=== PATIENT | female | born 1930 | race Caucasian/White ===

== ENCOUNTER 2016-07-07 15:26 | Observation (INO) ==
[2016-07-07] MEDS ORDERED: 0.9 % Sodium Chloride 1,000 ML IVC ONE (15:52)
--- NOTE | 2016-07-07 16:04 | Emergency Department Note ---
Disposition Clinical Impression: Confusion, Weakness generalized Urinary tract infection Qualifiers: Urinary tract infection type: site unspecified Hematuria presence: without hematuria Qualified Code(s): N39.0 - Urinary tract infection, site not specified Disposition: Admitted As Inpatient Condition: Fair Referrals: Jerilyn Carl EDUCATION RESEARCH ANALYST [Primary Care Provider] - Forms: ED Satisfaction Letter Time of Disposition: 17:51 Weakness HPI - General Chief complaint: ED Weakness Stated complaint: Severe dehydration, sent by Dr. Zuleta Time Seen by Provider: 07/07/16 15:38 Source: patient, family Mode of arrival: private vehicle Limitations: other (Alzheimer's) Nursing Notes Reviewed: Yes Vital Signs Reviewed: Yes - History of Present Illness Pt Subjective Complaint: generalized weakness/fatigue Onset (ago): day(s) (About 4 days) Duration: constant Location: generalized Pain Severity: moderate Pain Scale: 5 Worsens with: exertion Context: other (Patient has had several days of increased confusion and general weakness. Having difficulty ambulating at home. Was seen by PCP yesterday and had a urinalysis done in the office which they interpreted as urinary tract infection. The patient and I am injection of Rocephin and she was discharged to home. Today she is worse despite that treatment and so she was sent here by the PCP for further evaluation and probable admission.) Associated symptoms: Reports: confusion, other (Diarrhea) - Related Data Home Medications Medication Instructions Recorded Confirmed Atorvastatin [Lipitor] 80 mg PO QAM 05/06/15 07/07/16 Donepezil [Aricept] 10 mg PO HS 05/06/15 07/07/16 Levothyroxine [Synthroid] 50 mcg PO QAM 05/06/15 07/07/16 Sulfamethoxazole/Trimeth DS 1 tab PO HS 02/29/16 07/07/16 [Bactrim Ds] Trospium Chloride 20 mg PO BID 02/29/16 07/07/16 Vamshi/Poly/DEX Opth OINT [Maxitrol 1 appl OP HS 07/07/16 07/07/16 OPTH Oint] PrednisoLONE Acetate 1% Opth 1 drop OP TID 07/07/16 07/07/16 [PredFORTE 1%] Previous Rx's Medication Instructions Recorded Mirtazapine [Remeron] 15 mg PO HS #30 tablet 03/03/16 Allergies Allergy/AdvReac Type Severity Reaction Status Date / Time Pneumococcal Vaccine Allergy Hives Verified 05/09/15 14:21 All systems ED: reviewed and negative except as stated. Constitutional: Denies: fever, chills ENT ED: Denies: congestion Cardiovascular: Denies: dyspnea on exertion Respiratory: Denies: cough Gastrointestinal: Reports: diarrhea. Denies: nausea, vomiting Integumentary: Denies: rash Neurological: Reports: weakness (Generalized) Past Medical History - Past Medical History Source: old records reviewed, obtained from family, nursing notes reviewed Medical history: Reports: arthritis, dementia, hyperlipidemia, hypertension, osteoporosis, renal disease, thyroid disease, other Surgical history: Reports: carotid endarterectomy Psychiatric history: Reports: no psych history [employer] history: Reports: non-contributory - Social History Smoking Status: Former smoker Smokeless Tobacco Status: No Alcohol use: Reports: none Drug use: Reports: none Physical Exam - General Limitations: no limitations General appearance: alert, in no apparent distress, other (Gives answers that do not seem to make sense. Consistent with her dementia.) - Head Head exam: atraumatic, normocephalic - Eye Eye exam: Present: normal appearance, PERRL. Absent: scleral icterus, conjunctival injection - ENT ENT exam: normal exam, normal oropharynx, mucous membranes moist, normal external ear exam - Neck Neck exam: Present: normal inspection, full ROM. Absent: meningismus - Chest Chest inspection: Present: normal inspection, symmetric chest wall rise. Absent : tenderness - Respiratory Respiratory exam: Present: normal lung sounds bilaterally. Absent: respiratory distress, wheezes - Cardiovascular Cardiovascular exam: Present: regular rate, normal rhythm, normal heart sounds - Abdominal Exam Abdominal exam: Present: soft, Non-Tender - Extremities Exam Extremities exam: Present: normal inspection. Absent: pedal edema - Neurological Exam Neurological exam: Present: alert - Psychiatric Psychiatric exam: Present: flat affect - Skin Skin exam: Present: warm, dry. Absent: rash Course Course Narrative: Patient was sent in for PCP office as she is not getting better after initiating treatment for UTI, in fact she seems to be getting worse. I cannot find the urinalysis results in the computer. We will need to recheck the urine to verify that this is indeed a UTI. We did consider other causes of altered mental status and weakness in a 85-year-old dementia patient. We will do a full lab workup and start some IV fluids. Disposition will be based on diagnostic results and reevaluation, however I feel the patient is likely going to need to be admitted to the hospital due to significant weakness impacting her ADLs. - Reevaluation(s) Reevaluation #1: Labs look okay. Urinalysis is not showing significant amount of free white cells or bacteria in the urine but there are white blood cell casts. Cardiac workup is negative. Chest x-ray was not indicative of an obvious cause. I am going to admit the patient. I will continue her on antibiotics. I am awaiting a callback from the hospitalist. Time: 17:39 - Consultations Consultation #1: Dr. Caldwell, hospitalist - I discussed this with the hospitalist. She is accepted patient for admission. No changes in management at this time. Time: 17:50 Vital Signs Temperature 97.5 F L 07/07/16 15:33 Pulse Rate 94 07/07/16 15:33 Respiratory Rate 16 07/07/16 15:33 Blood Pressure 122/60 07/07/16 15:33 O2 Sat by Pulse Oximetry 94 L 07/07/16 15:33 Temperature 97.5 F L 07/07/16 15:33 Pulse Rate 86 07/07/16 16:22 Respiratory Rate 18 07/07/16 16:22 Blood Pressure 140/70 07/07/16 16:22 O2 Sat by Pulse Oximetry 94 L 07/07/16 16:22 Oxygen Delivery Oxygen Delivery Room Air Weakness - Medical Records Medical records reviewed: Yes I reviewed the patient's medical records. - Lab Data Lab results reviewed: Yes I reviewed the patient's lab results. Result diagrams: 07/07/16 16:10 07/07/16 16:10 Lab Results 07/07/16 07/07/16 07/07/16 Range/Units 16:10 16:10 16:10 WBC 11.4 H (4.3-11.1) K/mcL RBC 3.99 (3.82-4.97) M/mcL Hgb 11.5 (11.5-15.4) g/dL Hct 35.4 (35.3-44.9) % MCV 88.7 (83.0-100.0) fL MCH 28.8 (28.0-33.3) pg MCHC 32.5 (31.6-35.5) g/dL RDW 14.8 H (11.5-14.5) % Plt Count 265 (140-400) K/mcL MPV 9.8 (9.4-12.4) fL Immature Gran % 0.6 (0-4) % Seg Neutrophils % 84.9 % Lymphocytes % 6.2 % Monocytes % 3.0 % Eosinophils % 5.0 % Basophils % 0.3 % Neutrophils # 9.7 H (1.6-8.9) K/mcL Lymphocytes # 0.7 (0.6-4.6) K/mcL Monocytes # 0.3 (0.0-1.3) K/mcL Eosinophils # 0.6 (0.0-0.6) K/mcL Basophils # 0.0 (0.0-0.2) K/mcL Sodium 139 (136-145) mEq/L Potassium 3.7 (3.5-4.5) mEq/L Chloride 109 (98-109) mEq/L Carbon Dioxide 20 (19-29) mEq/L BUN 31 H (7-20) mg/dL Creatinine 1.25 H (0.57-1.11) mg/dL Est GFR ( Amer) 50 L (> 60) Est GFR (Non-Af Amer) 41 L (> 60) BUN/Creatinine Ratio 25 (6-26) Glucose 111 H (70-99) mg/dL Calculated Osmolality 295 (280-300) Lactic Acid 2.2 (0.5-2.2) mmol/L Calcium 9.2 (8.6-10.8) mg/dL Troponin I (0-0.03) ng/mL Urine Color (Yellow) Urine Clarity (Clear) Urine pH (5.0-8.0) pH Units Ur Specific [place] (1.010-1.025) Urine Protein (Neg-Trace) mg/dL Urine Glucose (UA) (Normal) mg/dL Urine Ketones (Negative) mg/dL Urine Blood (Negative) Urine Nitrite (Negative) Urine Bilirubin (Negative) Urine Urobilinogen (Normal) mg/dL Ur Leukocyte Esterase (Negative) Urine Microscopic RBC (0-3) per hpf Urine Microscopic WBC (0-3) per hpf Ur Squamous Epith Cells (None-Few) per lpf Amorphous Sediment (Few) Urine Bacteria (None-Few) per hpf Hyaline Casts (None-Few) per lpf Granular Casts (None Seen) per lpf WBC Casts (None Seen) per lpf Ur Culture Indicated? (NO) 07/07/16 07/07/16 Range/Units 16:10 16:26 WBC (4.3-11.1) K/mcL RBC (3.82-4.97) M/mcL Hgb (11.5-15.4) g/dL Hct (35.3-44.9) % MCV (83.0-100.0) fL MCH (28.0-33.3) pg MCHC (31.6-35.5) g/dL RDW (11.5-14.5) % Plt Count (140-400) K/mcL MPV (9.4-12.4) fL Immature Gran % (0-4) % Seg Neutrophils % % Lymphocytes % % Monocytes % % Eosinophils % % Basophils % % Neutrophils # (1.6-8.9) K/mcL Lymphocytes # (0.6-4.6) K/mcL Monocytes # (0.0-1.3) K/mcL Eosinophils # (0.0-0.6) K/mcL Basophils # (0.0-0.2) K/mcL Sodium (136-145) mEq/L Potassium (3.5-4.5) mEq/L Chloride (98-109) mEq/L Carbon Dioxide (19-29) mEq/L BUN (7-20) mg/dL Creatinine (0.57-1.11) mg/dL Est GFR ( Amer) (> 60) Est GFR (Non-Af Amer) (> 60) BUN/Creatinine Ratio (6-26) Glucose (70-99) mg/dL Calculated Osmolality (280-300) Lactic Acid (0.5-2.2) mmol/L Calcium (8.6-10.8) mg/dL Troponin I 0.02 (0-0.03) ng/mL Urine Color Dark Yellow (Yellow) Urine Clarity Cloudy A (Clear) Urine pH 5.5 (5.0-8.0) pH Units Ur Specific [place] 1.025 (1.010-1.025) Urine Protein 30 H (Neg-Trace) mg/dL Urine Glucose (UA) Normal (Normal) mg/dL Urine Ketones Negative (Negative) mg/dL Urine Blood Negative (Negative) Urine Nitrite Negative (Negative) Urine Bilirubin Small H (Negative) Urine Urobilinogen Normal (Normal) mg/dL Ur Leukocyte Esterase Negative (Negative) Urine Microscopic RBC 3-5 H (0-3) per hpf Urine Microscopic WBC 3-5 H (0-3) per hpf Ur Squamous Epith Cells Many H (None-Few) per lpf Amorphous Sediment Few (Few) Urine Bacteria Few (None-Few) per hpf Hyaline Casts Few (None-Few) per lpf Granular Casts Moderate H (None Seen) per lpf WBC Casts Few H (None Seen) per lpf Ur Culture Indicated? NO (NO) - Radiology Data Radiology results reviewed: Yes I reviewed the patient's radiology results. - EKG Data EKG attestation: Yes I reviewed and interpreted this EKG. EKG shows normal: sinus rhythm, axis, intervals, QRS complexes, ST-T waves Rate: normal Interpretation: no acute changes, unchanged when compared to prior tracing (date ) (02/29/2016)
[2016-07-07 16:18] LABS: Basophils % 0.3 %; Eosinophils # 0.6 K/mcL (0.0-0.6); Hematocrit 35.4 % (35.3-44.9); Hemoglobin 11.5 g/dL (11.5-15.4); Immature Granulocytes % 0.6 % (0-4); Lymphocytes # 0.7 K/mcL (0.6-4.6); Lymphocytes % 6.2 %; Mean Corpuscular HGB Conc 32.5 g/dL (31.6-35.5); Mean Corpuscular Hemoglobin 28.8 pg (28.0-33.3); Mean Corpuscular Volume 88.7 fL (83.0-100.0); Mean Platelet Volume 9.8 fL (9.4-12.4); Monocytes # 0.3 K/mcL (0.0-1.3); Neutrophils # 9.7 K/mcL (1.6-8.9); Platelet Count 265 K/mcL (140-400); Red Blood Count 3.99 M/mcL (3.82-4.97); Red Cell Distribution Width 14.8 % (11.5-14.5); Segmented Neutrophils % 84.9 %
[2016-07-07 16:30] LABS: Calcium 9.2 mg/dL (8.6-10.8); Potassium 3.7 mEq/L (3.5-4.5)
[2016-07-07 16:35] LABS: Bilirubin,Urine Small (Negative); Blood,Urine Negative (Negative); Clarity,Urine Cloudy (Clear); Color,Urine Dark Yellow (Yellow); Glucose,Urine (UA) Normal (Normal); Ketones,Urine Negative (Negative); Leukocyte Esterase,Urine Negative (Negative); Nitrite,Urine Negative (Negative); PH,Urine 5.5 pH Units (5.0-8.0); Protein,Urine 30 mg/dL (Neg-Trace); Specific Gravity,Urine 1.025 (1.010-1.025); Urobilinogen,Urine Normal (Normal)
[2016-07-07 16:38] LABS: Squamous Epithelial Cell,Urine Many per lpf (None-Few)
[2016-07-07 16:45] LABS: Granular Casts,Urine Moderate per lpf (None Seen)
[2016-07-07 16:47] LABS: Hyaline Casts,Urine Few per lpf (None-Few); White Blood Cell Casts,Urine Few per lpf (None Seen)
[2016-07-07 16:48] LABS: Amorphous Sediment,Urine Few (Few); Bacteria,Urine Few per hpf (None-Few)
[2016-07-07] MEDS ORDERED: Naloxone 0.4 MG/ML INJ IVP PRN (19:59)
[2016-07-07] MEDS ORDERED: Acetaminophen 325 MG TABLET PO PRN (19:59)
[2016-07-07] MEDS ORDERED: 0.9 % Sodium Chloride 1,000 ML IVC SCH (20:00)
--- NOTE | 2016-07-07 20:15 | Internal Med History&Physical ---
Date of Encounter: 07/07/16 Time of Encounter: 19:40 Assessment and Plan (1) Urinary tract infection Current visit: Yes Status: Acute 1. S/P failed outpatient treatment. 2. Pt received Rocephin in ER before urine culture obtained. Will culture urine now, but results will likely be negative given antibiotic use prior to collecting urine for culture. 3. Follow clinically and culture results (if available and pertinent). 4. Continue Rocephin for now and adjust antibiotics to clinical results and culture results (if available). Qualifiers: Urinary tract infection type: site unspecified Hematuria presence: without hematuria Qualified Code(s): N39.0 - Urinary tract infection, site not specified (2) Acute encephalopathy Current visit: Yes Status: Acute 1. Pt much worse than baseline according to daughters. She does have a history of dementia, but she is functioning fairly well per family. 2. Continue dementia meds. Hold other mind-altering medications. 3. Treat UTI and monitor clinically. (3) Weakness generalized Current visit: Yes Status: Acute 1. Likely due to UTI. 2. Monitor and reassess. May benefit from PT/OT consults if not returning to baseline. (4) Acute kidney injury superimposed on chronic kidney disease Current visit: No Status: Acute 1. Will hydrate gingerly with IVF and follow renal function. 2. Consult nephrology if necessary. (5) DVT prophylaxis Current visit: Yes Status: Acute 1. Heparin SQ. Internal Medicine - H&P: HPI Chief complaint: UTI; AMS; wekaness Admitted From: Emergency Dept Plans for Post Hospital Care: Home History of present illness: Ms. Monteiro is an 85 year old female who [facility] with worsening confusion, weakness, and altered mental status. She was diagnosed with UTI by her PCP yesterday and received a shot of Rocephin in the office. She was then placed on Bactrim, but despite the above, her clinical course declined rapidly since yesterday. She was therefore brought to the ER by her family for the above symptoms. Labs and urinalysis were drawn, but her urine did not strongly suggest UTI. However, this was drawn in the face of antibiotics. Unfortunately, we are unable to review urinalysis and culture results obtained by her PCP yesterday. Because of her worsening mental status and presumptive UTI, she was admitted to the hospitalist service. Upon my assessment of the patient, she is very confused, disoriented, and is unable to provide any history whatsoever. Two of her daughters are present and provide all the history. They confirm that she has a history of dementia, but she is not at her baseline. Normally, she is fairly well-functioning and fairly coherent. Presently, she is completely confused and disoriented and does not even recognize her daughters. 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 She no longer lives alone and no longer drives a car. She lives at home with her son, and she has home health providers as well. The hope and plan is for her to return home once her UTI resolves and her encephalopathy improves to baseline. Past Med Surg Social Fam HX - Past Medical History Source: old records reviewed, obtained from family Medical history: arthritis, dementia, hyperlipidemia, hypertension, osteoporosis , renal disease, thyroid disease Psychiatric history: no psych history - Past Surgical History Surgical History: carotid endarterectomy - Social History Smoking Status: Former smoker Smokeless Tobacco Status: No Alcohol use: none Drug use: none Current living situation: With Family Activity Level: Mostly sedentary Recent Out of Country Travel Within the Last 8 Weeks: No - Family History Mother Living Status: Hx Family Cardiac Disorders: Yes Brother Hx Family Cardiac Disorders: Yes (HTN) Hx Family Endocrine Disorder: Yes (DM) Internal Medicine - H&P: Meds Atorvastatin [Lipitor] 80 mg PO QAM 05/06/15 [History] Donepezil [Aricept] 10 mg PO HS 05/06/15 [History] Levothyroxine [Synthroid] 50 mcg PO QAM 05/06/15 [History] Sulfamethoxazole/Trimeth DS [Bactrim Ds] 1 tab PO HS 02/29/16 [History] Trospium Chloride 20 mg PO BID 02/29/16 [History] Mirtazapine [Remeron] 15 mg PO HS #30 tablet 03/03/16 [Rx] Vamshi/Poly/DEX Opth OINT [Maxitrol OPTH Oint] 1 appl OP HS 07/07/16 [History] PrednisoLONE Acetate 1% Opth [PredFORTE 1%] 1 drop OP TID 07/07/16 [History] Allergies Pneumococcal Vaccine Allergy (Verified 05/09/15 14:21) Hives ROS unobtainable: due to mental status Review of systems: As obtained by daughters below. All else unobtainable due to mental status. + confusion, weakness, chills, diarrhea. - fevers, nausea, vomiting, cough, SOB, CP - Constitutional Vitals: Temp Pulse Resp BP Pulse Ox 97.5 F L 79 22 152/67 96 07/07/16 15:33 07/07/16 18:13 07/07/16 18:19 07/07/16 18:19 07/07/16 18:13 General appearance: Present: A&O X 0, cooperative, pleasant. Absent: answers questions appropriately Exam: pleasantly confused; cooperative - Head Head exam: Present: atraumatic, normal inspection - Expanded Head Exam Head exam expanded: Absent: abrasion, contusion, general tenderness - Eye Eye exam: Present: EOMI, normal appearance. Absent: scleral icterus Pupils: Present: normal accommodation - ENT ENT exam: Present: mucous membranes dry, normal exam, normal oropharynx - Neck Neck exam general surgery: Present: full ROM, normal inspection, supple. Absent : lymphadenopathy, tenderness, thyromegaly - Expanded Neck Exam Neck exam: Absent: carotid bruit - Respiratory Respiratory exam: Present: CTAB. Absent: chest wall tenderness, rales, respiratory distress, rhonchi, wheezes - Cardiovascular Cardiovascular exam: Present: RRR, +S1, +S2. Absent: diastolic murmur, JVD, systolic murmur - GI/Abdominal GI/Abdominal exam: Present: normal bowel sounds, soft. Absent: guarding, hepatomegaly, rebound, splenomegaly, tenderness - Extremities Exam Extremities exam: Present: full ROM, warm. Absent: calf tenderness, joint swelling, pedal edema - Back Exam Back exam: Absent: CVA tenderness (L), CVA tenderness (R), tenderness - Neurological Exam Neurological exam: Present: alert, altered, CN II-XII intact, no focal deficits. Absent: oriented X3 - Psychiatric Psychiatric exam: Present: normal affect, normal mood Additional comments: confused and disoriented but pleasant and cooperative - Skin Skin exam: Present: dry, warm. Absent: rash Internal Med - H&P Results - Labs CBC & Chem 7: 07/07/16 16:10 07/07/16 16:10 - EKG Data -: EKG Interpreted by Myself - EKG Data Prior EKG available for review: yes When compared to previous EKG: there is no significant change EKG comments: 07/07/16 20:[address]-T changes; sinus rhythm - Diagnostic Studies Chest x-ray Status: image reviewed by me (No infiltrate; tiny right pleural effusion -- report reviewed as well)
[2016-07-07] MEDS: *HR* Heparin 5,000 UNIT/ML VIAL SQ SCH (21:28)
[2016-07-07] MEDS: Mirtazapine 15 MG TABLET PO SCH (21:29)
[2016-07-07] MEDS: Maxitrol Opth OINT 3.5 GM TUBE OP SCH (21:44)
[2016-07-07] MEDS: PrednisoLONE Acetate 1% Opth 5 ML BOTTLE BOTH EYES SCH (21:44)
[2016-07-08] MEDS: *HR* Heparin 5,000 UNIT/ML VIAL SQ SCH ×2 (05:43→17:48)
[2016-07-08 06:51] LABS: Basophils % 0.1 %; Eosinophils # 0.6 K/mcL (0.0-0.6); Eosinophils % 7.6 %; Hematocrit 29.3 % (35.3-44.9); Immature Granulocytes % 0.5 % (0-4); Lymphocytes # 1.1 K/mcL (0.6-4.6); Mean Corpuscular HGB Conc 32.1 g/dL (31.6-35.5); Mean Corpuscular Hemoglobin 28.7 pg (28.0-33.3); Mean Corpuscular Volume 89.3 fL (83.0-100.0); Mean Platelet Volume 10.4 fL (9.4-12.4); Monocytes # 0.4 K/mcL (0.0-1.3); Monocytes % 5.5 %; Neutrophils # 5.4 K/mcL (1.6-8.9); Platelet Count 226 K/mcL (140-400); Red Blood Count 3.28 M/mcL (3.82-4.97); Red Cell Distribution Width 14.6 % (11.5-14.5); Segmented Neutrophils % 72.3 %
[2016-07-08 06:55] LABS: Hemoglobin 9.4 g/dL (11.5-15.4)
[2016-07-08 07:07] LABS: Alanine Aminotransferase 25 Units/L (0-55); Albumin 2.3 g/dL (3.5-5.0); Albumin/Globulin Ratio 0.7 (1.1-2.2); Alkaline Phosphatase 63 Units/L (38-126); Aspartate Amino Transferase 25 Units/L (5-34); BUN/Creatinine Ratio 30 (6-26); Bilirubin,Total 0.5 mg/dL (0.2-1.2); Blood Urea Nitrogen 26 mg/dL (7-20); Carbon Dioxide 22 mEq/L (19-29); Chloride 110 mEq/L (98-109); Globulin 3.4 g/dL (2.4-3.5); Glucose 97 mg/dL (70-99); Osmolality,Calculated 293 (280-300); Potassium 3.3 mEq/L (3.5-4.5); Sodium 139 mEq/L (136-145); Total Protein 5.7 g/dL (6.0-8.3); eGFR For African Americans > 60 (> 60); eGFR For Non-African Americans > 60 (> 60)
[2016-07-08] MEDS: Levothyroxine 25 MCG TABLET PO SCH (08:36)
[2016-07-08] MEDS: PrednisoLONE Acetate 1% Opth 5 ML BOTTLE BOTH EYES SCH ×3 (08:37→20:32)
--- NOTE | 2016-07-08 09:04 | Electrocardiograph Report ---
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
--- NOTE | 2016-07-08 14:13 | Internal Med Progress Note ---
<Luisito Florez - Last Filed: 07/08/16 14:11> Date of Encounter: 07/08/16 Time of Encounter: 08:00 - Assessment and plan (1) Acute encephalopathy Current Visit: Yes Status: Acute Assessment and plan: Acute encephalopathy superimposed on dementia. Patient's family member discussed that her mother has had worsening of mental status over the past few days. Suspect secondary to gram-negative mary ellen urinary tract infection. Patient started on ceftriaxone antibiotic coverage. TSH level pending. Original lactic acid 2.2. Plan: - Continue treating underlying medical derailment. - Monitor mental status. - If mental status does not continue to improve will order B12, folate, thiamine - Blood cultures drawn results pending. (2) Dementia Current Visit: No Status: Acute Assessment and plan: Patient has a history of dementia for which she is on Aricept. Plan: - Continue Aricept 10 mg by mouth at bedtime. - Remeron 15 mg daily at bedtime Qualifiers: Dementia type: Alzheimer's disease Alzheimer's disease onset: late-onset Dementia behavioral disturbance: without behavioral disturbance Qualified Code (s): G30.1 - Alzheimer's disease with late onset; F02.80 - Dementia in other diseases classified elsewhere without behavioral disturbance (3) Urinary tract infection Current Visit: Yes Status: Acute Assessment and plan: Patient demonstrates urinary tract infection with culture growing gram-negative rods. Previous history of urinary tract infections but grew TMP-SMX resistant Klebsiella and Escherichia coli pansensitive. She had failed outpatient therapy with TMP-SMX for urinary tract infection prior to admission. Plan: - Continue ceftriaxone IV. Qualifiers: Urinary tract infection type: site unspecified Hematuria presence: without hematuria Qualified Code(s): N39.0 - Urinary tract infection, site not specified (4) Acute kidney injury superimposed on chronic kidney disease Current Visit: No Status: Acute Assessment and plan: Patient demonstrated acute kidney injury in the setting of gram-negative mary ellen UTI. She was started on IV fluids at maintenance dose of 75 overnight with resolution of her acute kidney injury. IV fluids were discontinued this morning. Plan: - Discontinue normal saline IV. - Monitor renal function with a.m. labs. (5) Hypokalemia Current Visit: Yes Status: Acute Assessment and plan: Patient's potassium was 3.3 this morning. Plan: - 40meq PO potassium. - follow up level in am. (6) Hypothyroidism Current Visit: No Status: Chronic Assessment and plan: Patient has a history of hypothyroidism for which he takes 50mcg levothyroxine daily. Possibility of contributing to altered mental status with current TSH level pending. Plan: - Continue current dose of levothyroxine, will adjust if TSH level abnormal. Qualifiers: Hypothyroidism type: other Qualified Code(s): E03.8 - Other specified hypothyroidism (7) DVT prophylaxis Current Visit: Yes Status: Acute Assessment and plan: Heparin subcutaneously. - Subjective Interval history: Mrs. Monteiro 85-year-old female with known history of dementia, hypertension, hyperlipidemia, osteoporosis, hypothyroidism and coronary artery disease has been seen and evaluated patient bedside this morning. She is sitting up in her chair watching TV. She said she does not feel the best today. She is alert and oriented to self only she notes she is in a hospital but does not know where she is, she does not know the month, the year or why she is here. She complains of weakness in her lower extremities as her chief complaint. She denies any visual changes, lightheadedness, dizziness, chest pain, shortness of breath, palpitations, abdominal pains, nausea vomiting diarrhea constipation or trouble urinating or burning with urination. She denies any bleeding from any location. She is responsive to questions but clearly demonstrates a lack of awareness. - Constitutional Vitals: Temp Pulse Resp BP Pulse Ox 98.4 F 71 16 116/71 95 07/08/16 10:50 07/08/16 10:50 07/08/16 10:50 07/08/16 10:50 07/08/16 10:50 General appearance: Present: cooperative, A&O X 1, pleasant. Absent: answers questions appropriately - Head Head exam: Present: atraumatic, normocephalic - Eye Eye exam: Present: PERRL, conjuntiva pink, sclera anicteric Pupils: Present: PERRL - Neck Neck exam general surgery: Present: supple, trachea midline. Absent: lymphadenopathy - Respiratory Respiratory exam: Present: CTAB. Absent: accessory muscle use, rales, rhonchi, wheezes - Cardiovascular Cardiovascular exam: Present: RRR, +S1, +S2. Absent: diastolic murmur, gallop, rubs, systolic murmur - GI/Abdominal GI/Abdominal exam: Present: normal bowel sounds, soft, no peritoneal signs. Absent: distended, tenderness - Extremities Exam Extremities exam: Present: warm, radial pulses palpable and symetrical. Absent : calf tenderness, cyanotic, pedal edema - Neurological Exam Neurological exam: Present: alert, no focal deficits. Absent: facial droop, speech deficit - Psychiatric Psychiatric exam: Present: flat affect Internal Medicine: Result - Labs CBC & Chem 7: 07/08/16 05:59 07/08/16 05:59 Labs: Short CBC 07/08/16 Range/Units 05:59 WBC 7.5 (4.3-11.1) K/mcL Hgb 9.4 L D (11.5-15.4) g/dL Hct 29.3 L (35.3-44.9) % Plt Count 226 (140-400) K/mcL Neutrophils # 5.4 (1.6-8.9) K/mcL BMP 07/08/16 05:59 Sodium 139 Potassium 3.3 L Chloride 110 H Carbon Dioxide 22 BUN 26 H Creatinine 0.87 Glucose 97 Calcium 8.0 L Liver Function 07/08/16 Range/Units 05:59 Total Bilirubin 0.5 (0.2-1.2) mg/dL AST 25 (5-34) Units/L ALT 25 (0-55) Units/L Alkaline Phosphatase 63 (38-126) Units/L Albumin 2.3 L (3.5-5.0) g/dL Consult Discharge Plan - Plan Referrals: Jerilyn Carl, [employer] [Primary Care Provider] - 07/15/16 3:00 pm () <Carlos Manuel Mora - Last Filed: 07/08/16 15:43> - Assessment and plan (1) Acute metabolic encephalopathy Current Visit: Yes Status: Acute Assessment and plan: Related to UTI. (2) Delirium superimposed on dementia Current Visit: Yes Status: Acute Assessment and plan: Dementia worsened by infection. (3) UTI (urinary tract infection) Current Visit: Yes Status: Acute Qualifiers: Urinary tract infection type: acute cystitis Hematuria presence: without hematuria Qualified Code(s): N30.00 - Acute cystitis without hematuria (4) Infection due to Gram-negative bacteria Current Visit: Yes Status: Acute Assessment and plan: Gram negative bacillus in urine. (5) Hypertension Current Visit: No Status: Chronic Qualifiers: Hypertension type: essential hypertension Qualified Code(s): I10 - Essential (primary) hypertension (6) Hypokalemia Current Visit: Yes Status: Acute (7) Dementia Current Visit: No Status: Acute Qualifiers: Dementia type: Alzheimer's disease Alzheimer's disease onset: late-onset Dementia behavioral disturbance: without behavioral disturbance Qualified Code (s): G30.1 - Alzheimer's disease with late onset; F02.80 - Dementia in other diseases classified elsewhere without behavioral disturbance - Constitutional Vitals: Temp Pulse Resp BP Pulse Ox 98.4 F 71 16 116/71 95 07/08/16 10:50 07/08/16 10:50 07/08/16 10:50 07/08/16 10:50 07/08/16 10:50 Internal Medicine: Result - Labs CBC & Chem 7: 07/08/16 05:59 07/08/16 05:59 Labs: Short CBC 07/08/16 Range/Units 05:59 WBC 7.5 (4.3-11.1) K/mcL Hgb 9.4 L D (11.5-15.4) g/dL Hct 29.3 L (35.3-44.9) % Plt Count 226 (140-400) K/mcL Neutrophils # 5.4 (1.6-8.9) K/mcL BMP 07/08/16 05:59 Sodium 139 Potassium 3.3 L Chloride 110 H Carbon Dioxide 22 BUN 26 H Creatinine 0.87 Glucose 97 Calcium 8.0 L Liver Function 07/08/16 Range/Units 05:59 Total Bilirubin 0.5 (0.2-1.2) mg/dL AST 25 (5-34) Units/L ALT 25 (0-55) Units/L Alkaline Phosphatase 63 (38-126) Units/L Albumin 2.3 L (3.5-5.0) g/dL - Attending Attestation I examined this patient and my medical decision-making was reviewed with the Resident Physician on 07/08/16. I agree with the documented findings, disposition and treatment plan as described except to the extent set forth below. Ms. Monteiro is currently in observation for acute encephalopathy and UTI. She is moderate to high risk due to potential for worsening mental status and infection. Ms. Monteiro is resting comfortably. She just got back in bed from chair. She denies pain at this time but doesn't answer a lot of my questions. Exam Alert. Appears comfortable at this time. No wheeze Heart reg and not tachy No edema I/P 1. Acute encephalopathy 2. UTI - gram neg mary ellen. ID and sensitivity pending. 3. Dementia Further diagnoses and plan as above.
[2016-07-08 15:20] LABS: Thyroid Stimulating Hormone 1.416 mcIU/mL (0.350-4.840)
[2016-07-08] MEDS: Mirtazapine 15 MG TABLET PO SCH (20:32)
[2016-07-08] MEDS: Maxitrol Opth OINT 3.5 GM TUBE OP SCH (20:33)
[2016-07-09] MEDS: *HR* Heparin 5,000 UNIT/ML VIAL SQ SCH ×2 (05:19→17:45)
[2016-07-09 07:01] LABS: Basophils % 0.1 %; Eosinophils # 0.5 K/mcL (0.0-0.6); Eosinophils % 7.5 %; Hemoglobin 9.6 g/dL (11.5-15.4); Immature Granulocytes % 0.4 % (0-4); Lymphocytes # 1.6 K/mcL (0.6-4.6); Lymphocytes % 22.8 %; Mean Corpuscular HGB Conc 33.1 g/dL (31.6-35.5); Mean Corpuscular Hemoglobin 29.2 pg (28.0-33.3); Mean Corpuscular Volume 88.1 fL (83.0-100.0); Mean Platelet Volume 10.2 fL (9.4-12.4); Monocytes # 0.6 K/mcL (0.0-1.3); Monocytes % 8.1 %; Neutrophils # 4.3 K/mcL (1.6-8.9); Platelet Count 262 K/mcL (140-400); Red Blood Count 3.29 M/mcL (3.82-4.97); Red Cell Distribution Width 14.5 % (11.5-14.5); Segmented Neutrophils % 61.1 %
[2016-07-09 07:14] LABS: Alanine Aminotransferase 27 Units/L (0-55); Albumin 2.4 g/dL (3.5-5.0); Albumin/Globulin Ratio 0.7 (1.1-2.2); Alkaline Phosphatase 63 Units/L (38-126); Aspartate Amino Transferase 29 Units/L (5-34); BUN/Creatinine Ratio 21 (6-26); Bilirubin,Total 0.4 mg/dL (0.2-1.2); Blood Urea Nitrogen 19 mg/dL (7-20); Calcium 8.4 mg/dL (8.6-10.8); Carbon Dioxide 25 mEq/L (19-29); Chloride 108 mEq/L (98-109); Globulin 3.3 g/dL (2.4-3.5); Glucose 88 mg/dL (70-99); Osmolality,Calculated 288 (280-300); Potassium 3.8 mEq/L (3.5-4.5); Sodium 138 mEq/L (136-145); Total Protein 5.7 g/dL (6.0-8.3); eGFR For African Americans > 60 (> 60); eGFR For Non-African Americans 60 (> 60)
[2016-07-09] MEDS: PrednisoLONE Acetate 1% Opth 5 ML BOTTLE BOTH EYES SCH ×3 (08:00→20:28)
[2016-07-09] MEDS: Levothyroxine 25 MCG TABLET PO SCH (08:00)
[2016-07-09] MEDS ORDERED: Dextrose Gel 15 GM PO PRN ×2 (10:51)
[2016-07-09] MEDS ORDERED: *HR* Dextrose 50 % in Water (Syg) 50 ML SYRINGE IVP PRN (10:51)
[2016-07-09] MEDS ORDERED: D5% in Water 1,000 ML IV PRN (10:51)
--- NOTE | 2016-07-09 15:32 | Internal Med Progress Note ---
<Luisito Florez - Last Filed: 07/09/16 15:30> Date of Encounter: 07/09/16 Time of Encounter: 08:00 - Assessment and plan (1) Acute encephalopathy Current Visit: Yes Status: Acute Assessment and plan: Acute encephalopathy superimposed on dementia. Patient's family member discussed that her mother has had worsening of mental status over the past few days. Suspect secondary to gram-negative mary ellen urinary tract infection. Patient started on ceftriaxone antibiotic coverage. TSH level pending. Original lactic acid 2.2. 07/09: Patient continues to have altered mental status, continue treating UTI. Plan: - Continue treating underlying medical derailment. - Monitor mental status. - If mental status does not continue to improve will order B12, folate, thiamine - Blood cultures drawn results pending. (2) Urinary tract infection Current Visit: Yes Status: Acute Assessment and plan: Patient demonstrates urinary tract infection with culture growing gram-negative rods. Previous history of urinary tract infections but grew TMP-SMX resistant Klebsiella and Escherichia coli pansensitive. She had failed outpatient therapy with TMP-SMX for urinary tract infection prior to admission. 07/09: Urine culture grew Citrobacter which is sensitive to ceftriaxone, ciprofloxacin, levofloxacin but is resistant to Bactrim. Plan: - Discontinue ceftriaxone IV, Start Omnicef. Qualifiers: Urinary tract infection type: site unspecified Hematuria presence: without hematuria Qualified Code(s): N39.0 - Urinary tract infection, site not specified (3) Dementia Current Visit: No Status: Acute Assessment and plan: Patient has a history of dementia for which she is on Aricept. Plan: - Continue Aricept 10 mg by mouth at bedtime. - Remeron 15 mg daily at bedtime Qualifiers: Dementia type: Alzheimer's disease Alzheimer's disease onset: late-onset Dementia behavioral disturbance: without behavioral disturbance Qualified Code (s): G30.1 - Alzheimer's disease with late onset; F02.80 - Dementia in other diseases classified elsewhere without behavioral disturbance (4) Acute kidney injury superimposed on chronic kidney disease Current Visit: No Status: Acute Assessment and plan: Patient demonstrated acute kidney injury in the setting of gram-negative mary ellen UTI. She was started on IV fluids at maintenance dose of 75 overnight with resolution of her acute kidney injury. IV fluids were discontinued this morning. Plan: - Monitor renal function with a.m. labs. (5) Hypokalemia Current Visit: Yes Status: Acute Assessment and plan: Improving after PO Potassium. Stable. Plan: - follow up level in am. (6) Hypothyroidism Current Visit: No Status: Chronic Assessment and plan: - Continue current dose of levothyroxine. Qualifiers: Hypothyroidism type: other Qualified Code(s): E03.8 - Other specified hypothyroidism (7) DVT prophylaxis Current Visit: Yes Status: Acute Assessment and plan: Heparin subcutaneously. - Subjective Interval history: Mrs. Monteiro 85-year-old female has been seen and evaluated at patient bedside this morning. She is alert, awake and interactive. She continues to have confusion but at her baseline dementia is unknown. She denies any pain or discomfort or burning with urination. Denies any chest pains or shortness of breath, palpitations, abdominal pains. She does however continue to have bilateral lower extremities weakness that she said has been bothering her. She does ambulate with assistance. - Constitutional Vitals: Temp Pulse Resp BP Pulse Ox 98 F 64 16 105/54 95 07/09/16 10:59 07/09/16 10:59 07/09/16 10:59 07/09/16 10:59 07/09/16 10:59 General appearance: Present: cooperative, A&O X 1, pleasant. Absent: answers questions appropriately - Head Head exam: Present: atraumatic, normocephalic - Eye Eye exam: Present: PERRL, conjuntiva pink, sclera anicteric Pupils: Present: PERRL - ENT ENT exam: Present: mucous membranes moist - Neck Neck exam general surgery: Present: supple, trachea midline. Absent: lymphadenopathy - Respiratory Respiratory exam: Present: CTAB. Absent: accessory muscle use, rales, rhonchi, wheezes - Cardiovascular Cardiovascular exam: Present: RRR, +S1, +S2. Absent: diastolic murmur, gallop, rubs, systolic murmur - GI/Abdominal GI/Abdominal exam: Present: normal bowel sounds, soft, no peritoneal signs. Absent: distended, tenderness - Extremities Exam Extremities exam: Present: warm, radial pulses palpable and symetrical. Absent : calf tenderness, cyanotic, pedal edema - Neurological Exam Neurological exam: Present: alert, altered, no focal deficits. Absent: pronater drift, facial droop, speech deficit - Psychiatric Psychiatric exam: Present: flat affect Internal Medicine: Result - Labs CBC & Chem 7: 07/09/16 05:57 07/09/16 05:57 Labs: Short CBC 07/09/16 Range/Units 05:57 WBC 7.0 (4.3-11.1) K/mcL Hgb 9.6 L (11.5-15.4) g/dL Hct 29.0 L (35.3-44.9) % Plt Count 262 (140-400) K/mcL Neutrophils # 4.3 (1.6-8.9) K/mcL BMP 07/09/16 05:57 Sodium 138 Potassium 3.8 Chloride 108 Carbon Dioxide 25 BUN 19 Creatinine 0.90 Glucose 88 Calcium 8.4 L Liver Function 07/09/16 Range/Units 05:57 Total Bilirubin 0.4 (0.2-1.2) mg/dL AST 29 (5-34) Units/L ALT 27 (0-55) Units/L Alkaline Phosphatase 63 (38-126) Units/L Albumin 2.4 L (3.5-5.0) g/dL Consult Discharge Plan - Plan Referrals: Jerilyn Carl, [employer] [Primary Care Provider] - 07/15/16 3:00 pm () <Carlos Manuel Mora - Last Filed: 07/09/16 19:41> - Assessment and plan (1) Acute metabolic encephalopathy Current Visit: Yes Status: Acute (2) Delirium superimposed on dementia Current Visit: Yes Status: Acute (3) UTI (urinary tract infection) Current Visit: Yes Status: Acute Qualifiers: Urinary tract infection type: acute cystitis Hematuria presence: without hematuria Qualified Code(s): N30.00 - Acute cystitis without hematuria (4) Infection due to Gram-negative bacteria Current Visit: Yes Status: Acute Assessment and plan: E. coli in urine. (5) Hypertension Current Visit: No Status: Chronic Qualifiers: Hypertension type: essential hypertension Qualified Code(s): I10 - Essential (primary) hypertension (6) Hypokalemia Current Visit: Yes Status: Acute (7) Dementia Current Visit: No Status: Acute Qualifiers: Dementia type: Alzheimer's disease Alzheimer's disease onset: late-onset Dementia behavioral disturbance: without behavioral disturbance Qualified Code (s): G30.1 - Alzheimer's disease with late onset; F02.80 - Dementia in other diseases classified elsewhere without behavioral disturbance - Constitutional Vitals: Temp Pulse Resp BP Pulse Ox 98 F 64 16 105/54 95 07/09/16 10:59 07/09/16 10:59 07/09/16 10:59 07/09/16 10:59 07/09/16 10:59 Internal Medicine: Result - Labs CBC & Chem 7: 07/09/16 05:57 07/09/16 05:57 Labs: Short CBC 07/09/16 Range/Units 05:57 WBC 7.0 (4.3-11.1) K/mcL Hgb 9.6 L (11.5-15.4) g/dL Hct 29.0 L (35.3-44.9) % Plt Count 262 (140-400) K/mcL Neutrophils # 4.3 (1.6-8.9) K/mcL BMP 07/09/16 05:57 Sodium 138 Potassium 3.8 Chloride 108 Carbon Dioxide 25 BUN 19 Creatinine 0.90 Glucose 88 Calcium 8.4 L Liver Function 07/09/16 Range/Units 05:57 Total Bilirubin 0.4 (0.2-1.2) mg/dL AST 29 (5-34) Units/L ALT 27 (0-55) Units/L Alkaline Phosphatase 63 (38-126) Units/L Albumin 2.4 L (3.5-5.0) g/dL - Attending Attestation I examined this patient and my medical decision-making was reviewed with the Resident Physician on 07/09/16. I agree with the documented findings, disposition and treatment plan as described except to the extent set forth below. Ms. Monteiro is currently in observation due to UTI and encephalopathy. Ms. Monteiro is doing OK. She is still confused. She has been able to ambulate. No fever or chills. No GI symptoms. Exam Alert. Comfortable. Heart reg No wheeze I/P 1. Acute encephalopathy 2. Dementia 3. UTI Further diagnoses and plan as above. Anticipate d/c in next 24 hours.
[2016-07-09] MEDS: Mirtazapine 15 MG TABLET PO SCH (20:27)
[2016-07-09] MEDS: Cefdinir 300 MG CAPSULE PO SCH (20:27)
[2016-07-09] MEDS: Maxitrol Opth OINT 3.5 GM TUBE OP SCH (20:28)
[2016-07-10 05:50] LABS: Basophils % 0.3 %; Eosinophils # 0.5 K/mcL (0.0-0.6); Eosinophils % 7.8 %; Hematocrit 30.2 % (35.3-44.9); Immature Granulocytes % 0.4 % (0-4); Lymphocytes # 2.1 K/mcL (0.6-4.6); Lymphocytes % 30.3 %; Mean Corpuscular HGB Conc 33.1 g/dL (31.6-35.5); Mean Corpuscular Volume 87.5 fL (83.0-100.0); Mean Platelet Volume 9.7 fL (9.4-12.4); Monocytes # 0.7 K/mcL (0.0-1.3); Monocytes % 9.9 %; Neutrophils # 3.5 K/mcL (1.6-8.9); Platelet Count 265 K/mcL (140-400); Red Blood Count 3.45 M/mcL (3.82-4.97); Red Cell Distribution Width 14.5 % (11.5-14.5); Segmented Neutrophils % 51.3 %
[2016-07-10 06:09] LABS: Alanine Aminotransferase 23 Units/L (0-55); Albumin 2.4 g/dL (3.5-5.0); Albumin/Globulin Ratio 0.7 (1.1-2.2); Alkaline Phosphatase 65 Units/L (38-126); Aspartate Amino Transferase 24 Units/L (5-34); BUN/Creatinine Ratio 20 (6-26); Bilirubin,Total 0.3 mg/dL (0.2-1.2); Blood Urea Nitrogen 18 mg/dL (7-20); Calcium 8.7 mg/dL (8.6-10.8); Carbon Dioxide 25 mEq/L (19-29); Chloride 107 mEq/L (98-109); Globulin 3.4 g/dL (2.4-3.5); Glucose 92 mg/dL (70-99); Osmolality,Calculated 288 (280-300); Potassium 3.6 mEq/L (3.5-4.5); Sodium 138 mEq/L (136-145); Total Protein 5.8 g/dL (6.0-8.3); eGFR For African Americans > 60 (> 60); eGFR For Non-African Americans 59 (> 60)
[2016-07-10] MEDS: *HR* Heparin 5,000 UNIT/ML VIAL SQ SCH (06:34)
[2016-07-10] MEDS: PrednisoLONE Acetate 1% Opth 5 ML BOTTLE BOTH EYES SCH (08:10)
[2016-07-10] MEDS: Levothyroxine 25 MCG TABLET PO SCH (08:10)
[2016-07-10] MEDS: Cefdinir 300 MG CAPSULE PO SCH (08:10)
[2016-07-10 11:02] VITALS: BP 135/72
--- NOTE | 2016-07-10 14:04 | Discharge Summary ---
<Luisito Florez - Last Filed: 07/10/16 14:32> Date of Encounter: 07/10/16 Time of Encounter: 14:02 - Discharge Diagnosis (1) Acute encephalopathy Priority: Primary Status: Acute (2) Urinary tract infection Priority: Primary Status: Acute Qualifiers: Urinary tract infection type: site unspecified Hematuria presence: without hematuria Qualified Code(s): N39.0 - Urinary tract infection, site not specified (3) Dementia Priority: Secondary Status: Acute Qualifiers: Dementia type: Alzheimer's disease Alzheimer's disease onset: late-onset Dementia behavioral disturbance: without behavioral disturbance Qualified Code (s): G30.1 - Alzheimer's disease with late onset; F02.80 - Dementia in other diseases classified elsewhere without behavioral disturbance (4) Acute kidney injury superimposed on chronic kidney disease Priority: Primary Status: Acute (5) Hypokalemia Priority: Primary Status: Acute (6) Hypothyroidism Priority: Secondary Status: Chronic Qualifiers: Hypothyroidism type: other Qualified Code(s): E03.8 - Other specified hypothyroidism (7) DVT prophylaxis Priority: Secondary Status: Acute - Discharge Medications Prescriptions: Cefdinir [Omnicef] 300 mg PO BID #10 capsule Home Medications: Atorvastatin [Lipitor] 80 mg PO QAM 05/06/15 [History] Donepezil [Aricept] 10 mg PO HS 05/06/15 [History] Levothyroxine [Synthroid] 50 mcg PO QAM 05/06/15 [History] Trospium Chloride 20 mg PO BID 02/29/16 [History] Mirtazapine [Remeron] 15 mg PO HS #30 tablet 03/03/16 [Rx] Vamshi/Poly/DEX Opth OINT [Maxitrol OPTH Oint] 1 appl OP HS 07/07/16 [History] PrednisoLONE Acetate 1% Opth [PredFORTE 1%] 1 drop OP TID 07/07/16 [History] Cefdinir [Omnicef] 300 mg PO BID #10 capsule 07/10/16 [Rx] Allergies/Adverse Reactions: Allergies Pneumococcal Vaccine Allergy (Verified 05/09/15 14:21) Hives Date of admission: 07/07/16 18:02 Primary care physician: Jerilyn Carl CNP Consults: 07/07/16 20:26 Consult to Mailing Section Clerk [CONS] Routine Reason for SW Consult: Uncertain of caregivers arrangements to care for patient with current mental status changes. Uncertain if rehab will be needed. 07/08/16 14:55 OT [Consult to Occupational Therapy] [CONS] Routine Comment: Evaluate, develop and implement POC PT [Consult to Physical Therapy] [CONS] Routine Comment: Evaluate, develop and implement POC Discharging clinician: Luisito Florez Anticipated date of discharge: 07/10/16 - Patient Status Disposition: Home Health Service Condition: Fair Functional capacity at discharge: uses cane/walker Overall status at discharge: patient is progressing back to baseline - Discharge Instructions Instructions: Cefdinir (By mouth), Dehydration (DC), Urinary Tract Infection in Women (DC), Hypokalemia (DC) Follow Up With: Jerilyn Carl CNP [Primary Care Provider] - 07/15/16 3:00 pm () Additional Instructions: I recommend taking medications as prescribed Follow-up with her primary care physician in the next 3-5 days. - Diet and Activity Activity: increase activity as tolerated Diet: advance to your usual diet Interval History: Mrs. Monteiro 10-year-old female was admitted on 07/07/2016 with altered mental status, acute kidney injury and urinary tract infection after failing outpatient treatment. Patient was on TMP-SMX outpatients. After admission urine culture resulted with Citrobacter which was resistant to TMP SMX. Patient was continued on inpatient ceftriaxone which was sensitive. She is admitted to general medical floor and continued on her home levothyroxine, medications for dementia and eyedrops. She was continued on IV ceftriaxone and monitored daily with a.m. labs, physical therapy and occupational therapy. On July 09 she was switched to by mouth Omnicef. She was seen and evaluated on and deemed stable for discharge home with completion of antibiotic coverage. Home health services to be continued. Hospital course: Ms. Monteiro is a 85 year old female - Time Spent with Patient Total time spent providing and/or coordinating discharge services: - Constitutional Vitals: Temp Pulse Resp BP Pulse Ox 98.0 F 62 14 135/72 93 L 07/10/16 10:57 07/10/16 10:57 07/10/16 10:57 07/10/16 10:57 07/10/16 10:57 General appearance: Present: cooperative, A&O X 1, pleasant. Absent: answers questions appropriately - Head Head exam: Present: atraumatic, normocephalic - Eye Eye exam: Present: PERRL, conjuntiva pink, sclera anicteric Pupils: Present: PERRL - ENT ENT exam: Present: mucous membranes moist - Neck Neck exam general surgery: Present: supple, trachea midline. Absent: lymphadenopathy - Respiratory Respiratory exam: Present: CTAB. Absent: accessory muscle use, rales, rhonchi, wheezes - Cardiovascular Cardiovascular exam: Present: RRR, +S1, +S2. Absent: diastolic murmur, gallop, rubs, systolic murmur - GI/Abdominal GI/Abdominal exam: Present: normal bowel sounds, soft, no peritoneal signs. Absent: distended, tenderness - Extremities Exam Extremities exam: Present: warm, radial pulses palpable and symetrical. Absent : calf tenderness, cyanotic, pedal edema - Neurological Exam Neurological exam: Present: alert, altered, no focal deficits. Absent: pronater drift, facial droop, speech deficit - Psychiatric Psychiatric exam: Present: flat affect <Carlos Manuel Mora - Last Filed: 07/10/16 19:24> - Discharge Diagnosis (1) Acute metabolic encephalopathy Status: Acute (2) Delirium superimposed on dementia Status: Acute (3) UTI (urinary tract infection) Status: Acute Qualifiers: Urinary tract infection type: acute cystitis Hematuria presence: without hematuria Qualified Code(s): N30.00 - Acute cystitis without hematuria (4) Infection due to Gram-negative bacteria Status: Acute (5) Hypertension Status: Chronic Qualifiers: Hypertension type: essential hypertension Qualified Code(s): I10 - Essential (primary) hypertension (6) Hypokalemia Status: Acute (7) Dementia Status: Acute Qualifiers: Dementia type: Alzheimer's disease Alzheimer's disease onset: late-onset Dementia behavioral disturbance: without behavioral disturbance Qualified Code (s): G30.1 - Alzheimer's disease with late onset; F02.80 - Dementia in other diseases classified elsewhere without behavioral disturbance Date of admission: 07/07/16 18:02 Primary care physician: Jerilyn Carl CNP Consults: 07/07/16 20:26 Consult to Mailing Section Clerk [CONS] Routine Reason for SW Consult: Uncertain of caregivers arrangements to care for patient with current mental status changes. Uncertain if rehab will be needed. 07/08/16 14:55 OT [Consult to Occupational Therapy] [CONS] Routine Comment: Evaluate, develop and implement POC PT [Consult to Physical Therapy] [CONS] Routine Comment: Evaluate, develop and implement POC Hospital course: Ms. Monteiro is a 85 year old female - Time Spent with Patient Total time spent providing and/or coordinating discharge services: 22min - Constitutional Vitals: Temp Pulse Resp BP Pulse Ox 98.0 F 62 14 135/72 93 L 07/10/16 10:57 07/10/16 10:57 07/10/16 10:57 07/10/16 10:57 07/10/16 10:57 - Attending Attestation I examined this patient and my medical decision-making was reviewed with the Resident Physician on 07/10/16. I agree with the documented findings, disposition and treatment plan as described except to the extent set forth below. Ms. Monteiro has been up and about. She is resting in bed at this time. No acute issues. She is afebrile with stable vitals. Exam Alert. comfortable Heart reg Lungs clear Abd soft Plan: D/C today Follow up with PCP
--- NOTE | 2016-07-10 14:40 | Physician Discharge Referral ---
Home Health/Hosp Referral Info Transfer to: Home Health Provider in Charge Post Discharge: PCP - Diagnosis (1) Acute encephalopathy Status: Acute (2) Urinary tract infection Status: Acute (3) Dementia Status: Acute (4) Acute kidney injury superimposed on chronic kidney disease Status: Acute (5) Hypokalemia Status: Acute (6) Hypothyroidism Status: Chronic (7) DVT prophylaxis Status: Acute - Respiratory Orders Smoking Cessation: Smoking cessation has been advised. For more information, call the [place] Tobacco Quit Line at 8-142-IRMR-NOW. - Diet/Nutrition Diet/Nutrition Orders: Regular - Activity Activity Orders: Ambulate - Services Needed Following services are medically necessary services: Home Health Aide, Physical Therapy, Occupational Therapy - Transfer Medications Prescriptions: Cefdinir [Omnicef] 300 mg PO BID #10 capsule Home Medications: Atorvastatin [Lipitor] 80 mg PO QAM 05/06/15 [History] Donepezil [Aricept] 10 mg PO HS 05/06/15 [History] Levothyroxine [Synthroid] 50 mcg PO QAM 05/06/15 [History] Trospium Chloride 20 mg PO BID 02/29/16 [History] Mirtazapine [Remeron] 15 mg PO HS #30 tablet 03/03/16 [Rx] Vamshi/Poly/DEX Opth OINT [Maxitrol OPTH Oint] 1 appl OP HS 07/07/16 [History] PrednisoLONE Acetate 1% Opth [PredFORTE 1%] 1 drop OP TID 07/07/16 [History] Cefdinir [Omnicef] 300 mg PO BID #10 capsule 07/10/16 [Rx] Allergies/Adverse Reactions: Allergies Pneumococcal Vaccine Allergy (Verified 05/09/15 14:21) Hives Certification: Further, I certify that my clinical findings support that this patient is homebound (i.e. absences from home require considerable and taxing effort and are for medical reasons or adventist services or infrequently or short duration when for other reasons) because: Homebound Reason: Patient requires assistance of a person or device to safely leave home, Altered mental status requiring supervision when leaving home Attestation: My signature below is to certify that this patient is under my care and that I, or nurse practitioner, or a physician's medication assistant working with me, has a face-to -face encounter with this patient.
== END 2016-07-10 15:14 | disposition home health service (06) ==
LOC: 2ANU 15:26 → EMEROO 15:26 → 2ANU 18:42
PROVIDERS: ADMIT Internal Medicine; ATTEND Internal Medicine

== ENCOUNTER 2016-07-17 13:15 | Observation (INO) ==
--- NOTE | 2016-07-17 14:05 | Emergency Department Note ---
Disposition Clinical Impression: New onset seizure Disposition: Admitted As Inpatient Condition: Good Seizure HPI - General Chief Complaint: ED Seizure Stated Complaint: Seizure Time Seen by Provider: 07/17/16 13:36 Source: EMS Limitations: other Nursing Notes Reviewed: Yes Vital Signs Reviewed: Yes - History of Present Illness HPI Narrative: Patient presents status post altered mental status. There is a question of possible seizure. Per family report patient started to shake and became really lethargic afterwards. This is unclear if this is happen before in the past. Patient is aware of that she is in a hospital but does not know what year it is. No family members available to what her baseline function is. Patient denies any pain is states she feels tired. - Related Data Home Medications Medication Instructions Recorded Confirmed Atorvastatin [Lipitor] 80 mg PO QAM 05/06/15 07/17/16 Donepezil [Aricept] 10 mg PO HS 05/06/15 07/17/16 Levothyroxine [Synthroid] 50 mcg PO QAM 05/06/15 07/17/16 Trospium Chloride 20 mg PO BID 02/29/16 07/17/16 Vamshi/Poly/DEX Opth OINT [Maxitrol 1 appl OP HS 07/07/16 07/17/16 OPTH Oint] PrednisoLONE Acetate 1% Opth 1 drop OP TID 07/07/16 07/17/16 [PredFORTE 1%] Previous Rx's Medication Instructions Recorded Mirtazapine [Remeron] 15 mg PO HS #30 tablet 03/03/16 Allergies Allergy/AdvReac Type Severity Reaction Status Date / Time Pneumococcal Vaccine Allergy Hives Verified 05/09/15 14:21 Limitations: ROS unobtainable due to patients medical condition Past Medical History - Past Medical History Source: nursing notes reviewed Medical history: Reports: arthritis, dementia, hyperlipidemia, hypertension, osteoporosis, renal disease, seizures, thyroid disease Surgical history: Reports: carotid endarterectomy Psychiatric history: Reports: no psych history [employer] PERSON history: Reports: non-contributory - Social History Smoking Status: Former smoker Smokeless Tobacco Status: No Alcohol use: Reports: none Drug use: Reports: none Physical Exam - General Limitations: other General appearance: other - Head Head exam: atraumatic, normocephalic, normal inspection - Eye Eye exam: Present: normal appearance, PERRL, EOMI - ENT ENT exam: normal exam, normal oropharynx, mucous membranes moist - Neck Neck exam: Present: normal inspection, full ROM, trachea midline - Chest Chest inspection: Present: normal inspection, symmetric chest wall rise - Respiratory Respiratory exam: Present: normal lung sounds bilaterally - Cardiovascular Cardiovascular exam: Present: regular rate, normal rhythm, normal heart sounds - Abdominal Exam Abdominal exam: Present: soft, Non-Tender. Absent: tenderness, distention, guarding, rebound, rigidity - Extremities Exam Extremities exam: Present: normal inspection, full ROM. Absent: tenderness, pedal edema - Back Exam Back exam: Present: normal inspection, full ROM. Absent: tenderness - Neurological Exam Neurological exam: Present: other (Limited secondary to patient's mental status) - Psychiatric Psychiatric exam: Present: other (Limited secondary to patient's mental status) - Skin Skin exam: Present: warm, dry, intact, normal color Course Vital Signs Temperature 98.6 F 07/17/16 13:19 Pulse Rate 83 07/17/16 13:19 Respiratory Rate 14 07/17/16 13:19 Blood Pressure 157/67 07/17/16 13:19 O2 Sat by Pulse Oximetry 92 L 07/17/16 13:19 Temperature 98.6 F 07/17/16 13:19 Pulse Rate 65 07/17/16 15:45 Respiratory Rate 16 07/17/16 16:57 Blood Pressure 143/63 07/17/16 16:57 O2 Sat by Pulse Oximetry 98 07/17/16 15:45 Oxygen Delivery Oxygen Delivery Room Air Seizure - Differential Diagnosis Likely: focal seizure, generalized seizure, seizure mimics syncope, seizure mimics pseudo-seizure, seizure mimics hypoglycemia - Lab Data Lab results reviewed: Yes I reviewed the patient's lab results. Result diagrams: 07/17/16 14:32 07/17/16 14:32 Lab Results 07/17/16 07/17/16 07/17/16 Range/Units 13:38 14:32 14:32 WBC 9.0 (4.3-11.1) K/mcL RBC 3.86 (3.82-4.97) M/mcL Hgb 11.0 L (11.5-15.4) g/dL Hct 34.6 L (35.3-44.9) % MCV 89.6 (83.0-100.0) fL MCH 28.5 (28.0-33.3) pg MCHC 31.8 (31.6-35.5) g/dL RDW 14.3 (11.5-14.5) % Plt Count 334 (140-400) K/mcL MPV 9.0 L (9.4-12.4) fL Immature Gran % 1.4 (0-4) % Seg Neutrophils % 73.3 % Lymphocytes % 17.9 % Monocytes % 4.9 % Eosinophils % 2.1 % Basophils % 0.4 % Neutrophils # 6.6 (1.6-8.9) K/mcL Lymphocytes # 1.6 (0.6-4.6) K/mcL Monocytes # 0.4 (0.0-1.3) K/mcL Eosinophils # 0.2 (0.0-0.6) K/mcL Basophils # 0.0 (0.0-0.2) K/mcL Immature Plt Fraction 2.0 (1.1-6.1) % PT (9.4-12.1) Seconds INR APTT 28.9 (26.0-36.0) Seconds Sodium (136-145) mEq/L Potassium (3.5-4.5) mEq/L Chloride (98-109) mEq/L Carbon Dioxide (19-29) mEq/L BUN (7-20) mg/dL Creatinine (0.57-1.11) mg/dL Est GFR ( Amer) (> 60) Est GFR (Non-Af Amer) (> 60) BUN/Creatinine Ratio (6-26) Glucose (70-99) mg/dL POC Glucose 125 H (58-89) Calculated Osmolality (280-300) Calcium (8.6-10.8) mg/dL Total Bilirubin (0.2-1.2) mg/dL AST (5-34) Units/L ALT (0-55) Units/L Alkaline Phosphatase (38-126) Units/L Troponin I (0-0.03) ng/mL B-Natriuretic Peptide (0-100) pg/mL Serum Total Protein (6.0-8.3) g/dL Albumin (3.5-5.0) g/dL Globulin (2.4-3.5) g/dL Albumin/Globulin Ratio (1.1-2.2) 07/17/16 07/17/16 07/17/16 Range/Units 14:32 14:32 14:32 WBC (4.3-11.1) K/mcL RBC (3.82-4.97) M/mcL Hgb (11.5-15.4) g/dL Hct (35.3-44.9) % MCV (83.0-100.0) fL MCH (28.0-33.3) pg MCHC (31.6-35.5) g/dL RDW (11.5-14.5) % Plt Count (140-400) K/mcL MPV (9.4-12.4) fL Immature Gran % (0-4) % Seg Neutrophils % % Lymphocytes % % Monocytes % % Eosinophils % % Basophils % % Neutrophils # (1.6-8.9) K/mcL Lymphocytes # (0.6-4.6) K/mcL Monocytes # (0.0-1.3) K/mcL Eosinophils # (0.0-0.6) K/mcL Basophils # (0.0-0.2) K/mcL Immature Plt Fraction (1.1-6.1) % PT 12.3 H (9.4-12.1) Seconds INR 1.1 APTT (26.0-36.0) Seconds Sodium 139 (136-145) mEq/L Potassium 4.0 (3.5-4.5) mEq/L Chloride 104 (98-109) mEq/L Carbon Dioxide 24 (19-29) mEq/L BUN 20 (7-20) mg/dL Creatinine 1.41 H (0.57-1.11) mg/dL Est GFR ( Amer) 43 L (> 60) Est GFR (Non-Af Amer) 36 L (> 60) BUN/Creatinine Ratio 14 (6-26) Glucose 111 H (70-99) mg/dL POC Glucose (58-89) Calculated Osmolality 291 (280-300) Calcium 9.3 (8.6-10.8) mg/dL Total Bilirubin 0.4 (0.2-1.2) mg/dL AST 56 H (5-34) Units/L ALT 63 H (0-55) Units/L Alkaline Phosphatase 80 (38-126) Units/L Troponin I 0.02 (0-0.03) ng/mL B-Natriuretic Peptide (0-100) pg/mL Serum Total Protein 6.5 (6.0-8.3) g/dL Albumin 3.0 L (3.5-5.0) g/dL Globulin 3.5 (2.4-3.5) g/dL Albumin/Globulin Ratio 0.9 L (1.1-2.2) 07/17/16 Range/Units 14:32 WBC (4.3-11.1) K/mcL RBC (3.82-4.97) M/mcL Hgb (11.5-15.4) g/dL Hct (35.3-44.9) % MCV (83.0-100.0) fL MCH (28.0-33.3) pg MCHC (31.6-35.5) g/dL RDW (11.5-14.5) % Plt Count (140-400) K/mcL MPV (9.4-12.4) fL Immature Gran % (0-4) % Seg Neutrophils % % Lymphocytes % % Monocytes % % Eosinophils % % Basophils % % Neutrophils # (1.6-8.9) K/mcL Lymphocytes # (0.6-4.6) K/mcL Monocytes # (0.0-1.3) K/mcL Eosinophils # (0.0-0.6) K/mcL Basophils # (0.0-0.2) K/mcL Immature Plt Fraction (1.1-6.1) % PT (9.4-12.1) Seconds INR APTT (26.0-36.0) Seconds Sodium (136-145) mEq/L Potassium (3.5-4.5) mEq/L Chloride (98-109) mEq/L Carbon Dioxide (19-29) mEq/L BUN (7-20) mg/dL Creatinine (0.57-1.11) mg/dL Est GFR ( Amer) (> 60) Est GFR (Non-Af Amer) (> 60) BUN/Creatinine Ratio (6-26) Glucose (70-99) mg/dL POC Glucose (58-89) Calculated Osmolality (280-300) Calcium (8.6-10.8) mg/dL Total Bilirubin (0.2-1.2) mg/dL AST (5-34) Units/L ALT (0-55) Units/L Alkaline Phosphatase (38-126) Units/L Troponin I (0-0.03) ng/mL B-Natriuretic Peptide 36 (0-100) pg/mL Serum Total Protein (6.0-8.3) g/dL Albumin (3.5-5.0) g/dL Globulin (2.4-3.5) g/dL Albumin/Globulin Ratio (1.1-2.2) - Radiology Data Radiology results reviewed: Yes I reviewed the patient's radiology results. Chest X-Ray 07/17/16 13:52 IMPRESSION: No acute process. D/ / Ernie Ziegler MD / Ernie Ziegler MD Interpreting Provider: Ernie Ziegler MD Head CT 07/17/16 13:52 IMPRESSION: No acute intracranial abnormality. Diffuse atrophic changes with findings suggesting chronic microvascular ischemia D/ / Ernie Ziegler MD / Ernie Ziegler MD Interpreting Provider: Ernie Ziegler MD - EKG Data EKG attestation: Yes I reviewed and interpreted this EKG. EKG shows normal: sinus rhythm Rate: normal Rhythm: NSR
[2016-07-17 14:40] LABS: Basophils % 0.4 %; Eosinophils # 0.2 K/mcL (0.0-0.6); Eosinophils % 2.1 %; Hematocrit 34.6 % (35.3-44.9); Immature Granulocytes % 1.4 % (0-4); Lymphocytes # 1.6 K/mcL (0.6-4.6); Lymphocytes % 17.9 %; Mean Corpuscular HGB Conc 31.8 g/dL (31.6-35.5); Mean Corpuscular Hemoglobin 28.5 pg (28.0-33.3); Mean Corpuscular Volume 89.6 fL (83.0-100.0); Monocytes # 0.4 K/mcL (0.0-1.3); Monocytes % 4.9 %; Neutrophils # 6.6 K/mcL (1.6-8.9); Platelet Count 334 K/mcL (140-400); Red Blood Count 3.86 M/mcL (3.82-4.97); Red Cell Distribution Width 14.3 % (11.5-14.5); Segmented Neutrophils % 73.3 %
[2016-07-17 14:44] LABS: INR 1.1; Prothrombin Time 12.3 Seconds (9.4-12.1)
[2016-07-17 14:53] LABS: Albumin/Globulin Ratio 0.9 (1.1-2.2); Bilirubin,Total 0.4 mg/dL (0.2-1.2); Calcium 9.3 mg/dL (8.6-10.8); Globulin 3.5 g/dL (2.4-3.5); Total Protein 6.5 g/dL (6.0-8.3)
--- NOTE | 2016-07-17 17:36 | Internal Med History&Physical ---
<Geronimo Morales - Last Filed: 07/17/16 19:11> Date of Encounter: 07/17/16 Time of Encounter: 17:36 Assessment and Plan (1) Observed seizure-like activity Current visit: Yes Status: Acute Patient is an 85 year old female with history of Alzheimer dementia, hyperlipidemia, hypertension, arthritis, hypothyroidism, osteoporosis, and arthritis who was brought in with possible seizure activity this afternoon. Report of shaking, screaming, fixed eyes, foaming at mouth, and unresponsiveness. EKG revealed normal sinus rhythm, no st elevations or depressions, no t wave inversions. Rate 84bpm, pr int 148ms, QRS dur 105ms, QT/QTc 379/420, P-R-T axes 37 -11 75. No changes from prior ekg. CT Head revealed no acute intracranial abnormalities, chronic atrophic changes. CXR revealed no acute cardiopulmonary processes CBC was essentially normal, CMP revealed Cr elevated at 1.41, gfr 36, elevated liver enzymes. Troponin was negative 0.02 UA pending Neurology consulted. (2) Alzheimer's dementia Current visit: Yes Status: Chronic Family reports patient is currently at baseline. Continue home medications for chronic disease management. Qualifiers: Alzheimer's disease onset: unspecified onset Dementia behavioral disturbance: without behavioral disturbance Qualified Code(s): G30.9 - Alzheimer's disease, unspecified; F02.80 - Dementia in other diseases classified elsewhere without behavioral disturbance (3) Hypertension Current visit: Yes Status: Chronic Stable. Bp 151/60 Continue monitoring. No home medications. Qualifiers: Hypertension type: essential hypertension Qualified Code(s): I10 - Essential (primary) hypertension (4) Hypothyroidism Current visit: Yes Status: Chronic History of hypothyroidism on 50mcg levothyroxine. Continue home medication for chronic disease management. Check TSH, Free T4, Free T3. Qualifiers: Hypothyroidism type: other Qualified Code(s): E03.8 - Other specified hypothyroidism (5) Chronic kidney disease, stage 2 (mild) Current visit: Yes Status: Chronic Cr at 1.41, gfr 36 Previous admission Cr within normal limits. IV fluids 75mL/hr Continue following labs. (6) CAD (coronary artery disease) Current visit: Yes Status: Chronic Continue home medications for chronic disease management. Qualifiers: Coronary Disease-Associated Artery/Lesion type: unspecified vessel or lesion type [place] vs. transplanted heart: unspecified whether [place] or transplanted heart Associated angina: with unspecified angina Qualified Code (s): I25.119 - Atherosclerotic heart disease of [place] coronary artery with unspecified angina pectoris (7) Hyperlipidemia Current visit: Yes Status: Chronic Continue home medications for chronic disease management. Qualifiers: Hyperlipidemia type: unspecified Qualified Code(s): E78.5 - Hyperlipidemia , unspecified (8) DVT prophylaxis Current visit: Yes Status: Acute IPCD for dvt ppx Internal Medicine - H&P: HPI Chief complaint: Possible Seizure activity Admitted From: Emergency Dept History of present illness: Ms. Monteiro is a 85 year old female with history including Alzheimer dementia, hyperlipidemia, hypertension, arthritis, hypothyroidism, osteoporosis, and arthritis who was brought in via EMS to [facility] ED with complaint of possible seizure activity just after about noon time today. Patient is unaware of what happened; therefore, history given by family members. Son reports that patient has been acting a little different since last evening, this morning he was unable to really wake the patient up from rest, and this afternoon heard patient screaming and found the patient on the ground shaking and eyes seemed fixed. Also reported was some foaming of the mouth and unresponsiveness that continued even throughout EMS arrival. No other history at this time as family member who witnessed possible seizure activity is not currently present. Patient currently denies fevers, chills, sweats, headaches, dizziness, changes in vision or hearing, nausea, vomiting, chest pain, shortness of breath, abdominal pain, changes in bowels or bladder, bowel or bladder incontinence, weakness, or loss of sensation. Patient is currently comfortable in bed and according to family members appears to have more strength than before and at baseline. Patient is alert and oriented to person only. Past Med Surg Social Fam HX - Past Medical History Medical history: arthritis, dementia, hyperlipidemia, hypertension, osteoporosis , renal disease, thyroid disease (hypothyroidism) Psychiatric history: no psych history - Past Surgical History Surgical History: carotid endarterectomy (L 04/2004) - Social History Smoking Status: Former smoker Smokeless Tobacco Status: No Alcohol use: none Drug use: none Occupational status: retired Current living situation: Home, With Family Activity Level: Uses cane/walker Recent Out of Country Travel Within the Last 8 Weeks: No Exposure or Possible Exposure to Illness During Travel: No - Family History Mother Living Status: Hx Family Cardiac Disorders: Yes (hypertension) Hx Family Cancer: Yes (unspecified) Hx Family Endocrine Disorder: Yes (diabetes) Brother Hx Family Cardiac Disorders: Yes (HTN) Hx Family Endocrine Disorder: Yes (Diabetes) Daughter Living Status: Still Living Hx Family Neuromuscular Disorders: Yes (Parkinson Disease) Sister Hx Family Cardiac Disorders: Yes (hypertension, [place]) Hx Family Cancer: Yes (unspecified) Hx Family GI Disorders: Yes (gallbladder disease unspecified) Hx Family Endocrine Disorder: Yes (diabetes) Son Hx Family Respiratory Disorders: Yes (unspecified) Internal Medicine - H&P: Meds Atorvastatin [Lipitor] 80 mg PO QAM 05/06/15 [History] Donepezil [Aricept] 10 mg PO HS 05/06/15 [History] Levothyroxine [Synthroid] 50 mcg PO QAM 05/06/15 [History] Trospium Chloride 20 mg PO BID 02/29/16 [History] Mirtazapine [Remeron] 15 mg PO HS #30 tablet 03/03/16 [Rx] Vamshi/Poly/DEX Opth OINT [Maxitrol OPTH Oint] 1 appl OP HS 07/07/16 [History] PrednisoLONE Acetate 1% Opth [PredFORTE 1%] 1 drop OP TID 07/07/16 [History] Allergies Pneumococcal Vaccine Allergy (Verified 05/09/15 14:21) Hives All Systems PM: A 10-system review of systems was performed and is negative for pertinent findings except as documented above in the HPI. - Constitutional Constitutional: as per HPI, no chills, no excessive sweating, no fever(s), no weakness - EENT Eyes: as per HPI Ears: as per HPI Nose, mouth and throat: as per HPI, no dysphagia, no mouth pain, no neck pain, no sore throat, no throat swelling, no tongue swelling - Cardiovascular Cardiovascular ROS IM: as per HPI, no chest pain, no dyspnea, no edema, no lightheadedness, no palpitations, no syncope - Respiratory Respiratory: as per HPI, no cough, no dyspnea, no wheezing - Gastrointestinal Gastrointestinal: as per HPI, no abdominal pain, no change in bowel habits, no constipation, no diarrhea, no heartburn, no nausea, no vomiting - Genitourinary Genitourinary: as per HPI, no dysuria, no flank pain - Musculoskeletal Musculoskeletal ROS IM: as per HPI, no neck pain, no numbness, no stiffness, no tingling - Neurological Neurological ROS: as per HPI, no abnormal movements, no abnormal speech, no dizziness, no headache(s), no loss of vision, no weakness - Constitutional Vitals: Temp Pulse Resp BP Pulse Ox 98.6 F 65 16 143/63 98 07/17/16 13:19 07/17/16 15:45 07/17/16 16:57 07/17/16 16:57 07/17/16 15:45 General appearance: Present: cooperative, A&O X 1, pleasant, no acute distress - Head Head exam: Present: atraumatic, normal inspection, normocephalic - Eye Eye exam: Present: EOMI, normal appearance, PERRL - ENT ENT exam: Present: mucous membranes moist, normal exam, normal external ear exam , normal oropharynx - Neck Neck exam general surgery: Present: full ROM, normal inspection, supple, trachea midline. Absent: tenderness - Respiratory Respiratory exam: Present: CTAB. Absent: rales, rhonchi, wheezes - Cardiovascular Cardiovascular exam: Present: RRR, +S1, +S2. Absent: diastolic murmur, JVD, systolic murmur - GI/Abdominal GI/Abdominal exam: Present: normal bowel sounds, soft. Absent: distended, guarding, tenderness - Extremities Exam Extremities exam: Present: normal inspection, warm, radial pulses palpable and symetrical. Absent: pedal edema, tenderness - Neurological Exam Neurological exam: Present: alert, CN II-XII intact, reflexes normal, no focal deficits, strengths equal and symetr throughout. Absent: motor sensory deficit , facial droop, speech deficit - Expanded Neurological Exam DTR: patellar (L): 2+, patellar (R): 2+ Coma Scale Eye Opening: Spontaneous Coma Scale Motor Response: Obeys Commands Coma Scale Verbal Response: Confused Coma Scale Total: 14 - Psychiatric Psychiatric exam: Present: normal affect, normal mood - Skin Skin exam: Present: dry, intact, normal color, warm. Absent: diaphoretic, erythema, pallor Internal Med - H&P Results - Labs CBC & Chem 7: 07/17/16 14:32 07/17/16 14:32 <Carolyn Bailey E - Last Filed: 07/17/16 19:25> Internal Medicine - H&P: HPI History of present illness: Ms. Monteiro is a 85 year old female All Systems PM: A 10-system review of systems was performed and is negative for pertinent findings except as documented above in the HPI. - Constitutional Vitals: Temp Pulse Resp BP Pulse Ox 99.0 F 68 14 157/80 96 07/17/16 18:54 07/17/16 18:54 07/17/16 18:54 07/17/16 18:54 07/17/16 18:54 Internal Med - H&P Results - Labs CBC & Chem 7: 07/17/16 14:32 07/17/16 14:32 - Attending Attestation I examined this patient and reviewed laboratory, imaging and all diagnostic data. My medical decision-making was reviewed with Geronimo Riley - Resident Physician. I agree with the documented findings, disposition and treatment plan as described above.
[2016-07-17] MEDS ORDERED: Acetaminophen 325 MG TABLET PO PRN (18:27)
[2016-07-17] MEDS ORDERED: Naloxone 0.4 MG/ML INJ IVP PRN (18:27)
[2016-07-17] MEDS: 0.9 % Sodium Chloride 1,000 ML IVC SCH (19:02)
[2016-07-17] MEDS: Mirtazapine 15 MG TABLET PO SCH (21:04)
[2016-07-18 03:56] LABS: Basophils % 0.4 %; Eosinophils # 0.2 K/mcL (0.0-0.6); Eosinophils % 2.8 %; Hematocrit 31.6 % (35.3-44.9); Hemoglobin 10.5 g/dL (11.5-15.4); Immature Granulocytes % 0.2 % (0-4); Lymphocytes % 24.4 %; Mean Corpuscular HGB Conc 33.2 g/dL (31.6-35.5); Mean Corpuscular Hemoglobin 29.1 pg (28.0-33.3); Mean Corpuscular Volume 87.5 fL (83.0-100.0); Mean Platelet Volume 9.4 fL (9.4-12.4); Monocytes # 0.6 K/mcL (0.0-1.3); Monocytes % 6.9 %; Neutrophils # 5.4 K/mcL (1.6-8.9); Platelet Count 314 K/mcL (140-400); Red Blood Count 3.61 M/mcL (3.82-4.97); Red Cell Distribution Width 14.4 % (11.5-14.5); Segmented Neutrophils % 65.3 %
[2016-07-18 04:05] LABS: INR 1.1; Prothrombin Time 11.8 Seconds (9.4-12.1)
[2016-07-18 04:13] LABS: Calcium 8.9 mg/dL (8.6-10.8); Chol/HDL Ratio 3.7 (0-4.9); Magnesium 1.5 mg/dL (1.6-2.6)
[2016-07-18 04:30] LABS: Thyroid Stimulating Hormone 4.046 mcIU/mL (0.350-4.840); Triiodothyronine (T3) Free 2.05 pg/mL (1.71-3.71)
[2016-07-18] MEDS: 0.9 % Sodium Chloride 1,000 ML IVC SCH ×2 (09:13→23:02)
--- NOTE | 2016-07-18 12:05 | Neurology - Consult Note ---
Date of Encounter: 07/18/16 Time of Encounter: 12:00 Assessment and Plan (1) Dementia Current Visit: No Status: Acute This juncture I am not able to identify any specific metabolic, infectious, or vascular etiology to which we could eventually this acute mental status change. There have been no changes in her medications. I am concerned about the possibility of seizure. Seizure activity is not uncommon in those individuals with senile dementia of the Alzheimer's type. I would like to go ahead and start her on Keppra 500 mg twice a day, obtain an MRI scan of the brain, obtain EEG. The documentation in the history of HPI and plan were at least partially created by [employer] recognition technology by Dr. Hayes. Errors in grammar, wording or other phrases may exist. If errors are found after the documentation signed, they will be addressed individually in the addendum section of this document when appropriate. Qualifiers: Dementia type: Alzheimer's disease Alzheimer's disease onset: late-onset Dementia behavioral disturbance: without behavioral disturbance Qualified Code (s): G30.1 - Alzheimer's disease with late onset; F02.80 - Dementia in other diseases classified elsewhere without behavioral disturbance History of Present Illness HPI: Ms. Monteiro is a 85 year old female who is known to me due to a previous history of senile dementia of the Alzheimer's type is admitted to the hospital for neurologic assessment due to seizure-like activity. Apparently this was witnessed by relatives at home. She lives at home with her son. She was witnessed to have. Shaking seemed to be dazed fixed eyes and foaming at the mouth. She was confused for several hours afterwards. She now seems to be back to her normal baseline which is still in a confused state. However she is alert and oriented to person. She cannot give any pertinent history regarding her admission status. She denies headache. Several family members are present to help corroborate the history including her daughter and her sister. CT scan of the head was obtained at the time of admission which revealed significant cortical atrophy with ventricular dilatation. There is also significant periventricular white matter ischemic change present. There is no evidence of acute infarction or hemorrhagic process, no neoplasm, no edema present. CBC with differential was essentially normal 139, potassium 4.0, chloride 104, carbon dioxide 24. Wellbutrin 20, creatinine was elevated at 1.41. Glucose upon admission was 111. AST and ALT was slightly elevated at 56 and 63 respectively. Past Med Surg Social Fam HX - Past Medical History Medical history: arthritis, dementia, hyperlipidemia, hypertension, osteoporosis , renal disease, thyroid disease (hypothyroidism) Psychiatric history: no psych history - Past Surgical History Surgical History: carotid endarterectomy (L 04/2004) - Social History Smoking Status: Former smoker Smokeless Tobacco Status: No Alcohol use: none Drug use: none - Family History Daughter Living Status: Still Living Hx Family Neuromuscular Disorders: Yes (Parkinson Disease) Sister Hx Family Cardiac Disorders: Yes (hypertension, MT) Hx Family Cancer: Yes (unspecified) Hx Family GI Disorders: Yes (gallbladder disease unspecified) Hx Family Endocrine Disorder: Yes (diabetes) Son Hx Family Respiratory Disorders: Yes (unspecified) Mother Living Status: Hx Family Cardiac Disorders: Yes (hypertension) Hx Family Cancer: Yes (unspecified) Hx Family Endocrine Disorder: Yes (diabetes) Brother Hx Family Cardiac Disorders: Yes (HTN) Hx Family Endocrine Disorder: Yes (Diabetes) Medications and Allergies Atorvastatin [Lipitor] 80 mg PO QAM 05/06/15 [History] Donepezil [Aricept] 10 mg PO HS 05/06/15 [History] Levothyroxine [Synthroid] 50 mcg PO QAM 05/06/15 [History] Trospium Chloride 20 mg PO BID 02/29/16 [History] Mirtazapine [Remeron] 15 mg PO HS #30 tablet 03/03/16 [Rx] Vamshi/Poly/DEX Opth OINT [Maxitrol OPTH Oint] 1 appl OP HS 07/07/16 [History] PrednisoLONE Acetate 1% Opth [PredFORTE 1%] 1 drop OP TID 07/07/16 [History] Allergies Pneumococcal Vaccine Allergy (Verified 05/09/15 14:21) Hives ROS unobtainable: due to mental status All Systems: A 10-system review of systems was performed and is negative for pertinent findings except as documented above in the HPI. Physical Examination - Vital Signs Vital Signs: Initial Vital Signs Temp Pulse Resp BP Pulse Ox 98.6 F 83 14 157/67 92 L 07/17/16 13:19 07/17/16 13:19 07/17/16 13:19 07/17/16 13:19 07/17/16 13:19 - Exam Exam: Mental status finds that patient is awake she is alert, and oriented to person only. She cannot tell me the day and date month or year. She could not tell me that she was in the hospital currently. She does have motor apraxia, she is not aphasic however. I did not perform a Mini-Mental status assessment. Cranial nerve exam finds her pupils are equal and reactive to light and accommodation, extraocular motility is intact, sensory to face is intact, there is no facial asymmetry identified. Hearing appears to be diminished symmetrically tongue protrudes midline. Motor exam finds no focal or lateralized deficits. Moves the upper and lower extremities freely. No involuntary movements or atrophy are present. She has 5 over 5 strength of the retail shift leader symmetrically as well as the tibialis anterior symmetrically. Sensory examination is difficult to assess in a confused patient. Deep tendon reflexes are 2 symmetrically over the biceps and triceps brachioradialis, patellar, and Achilles. Wilson, trauma or Babinski signs are present. I did not assess her gait today. Results - Laboratory Findings CBC and BMP: 07/18/16 03:31 07/18/16 03:31 Abnormal lab findings: Abnormal lab results RBC 3.61 M/mcL (3.82-4.97) L 07/18/16 03:31 Hgb 10.5 g/dL (11.5-15.4) L 07/18/16 03:31 Hct 31.6 % (35.3-44.9) L 07/18/16 03:31 Creatinine 1.28 mg/dL (0.57-1.11) H 07/18/16 03:31 Est GFR ( Amer) 48 (> 60) L 07/18/16 03:31 Est GFR (Non-Af Amer) 40 (> 60) L 07/18/16 03:31 POC Glucose 125 (58-89) H 07/17/16 13:38 Magnesium 1.5 mg/dL (1.6-2.6) L 07/18/16 03:31 AST 56 Units/L (5-34) H 07/17/16 14:32 ALT 63 Units/L (0-55) H 07/17/16 14:32 Albumin 3.0 g/dL (3.5-5.0) L 07/17/16 14:32 Albumin/Globulin Ratio 0.9 (1.1-2.2) L 07/17/16 14:32 Consult Discharge Plan - Plan Referrals: Jerilyn Carl, WEIGHT COUNT OPERATOR [Primary Care Provider] -
[2016-07-18] MEDS ORDERED: Magnesium Sulfate 1 GM in D5% in Water 100 ML IVPB ONE (13:16)
[2016-07-18] MEDS: levETIRAcetam 250 MG TABLET PO SCH (16:41)
--- NOTE | 2016-07-18 17:55 | Internal Med Progress Note ---
Date of Encounter: 07/18/16 Time of Encounter: 14:00 - Assessment and plan (1) Seizure-like activity Current Visit: Yes Status: Acute Assessment and plan: Patient is an 85 year old female with history of Alzheimer dementia, hyperlipidemia, hypertension, arthritis, hypothyroidism, osteoporosis, and arthritis who was brought in with possible seizure activity this afternoon. Report of shaking, screaming, fixed eyes, foaming at mouth, and unresponsiveness. EKG revealed normal sinus rhythm, no st elevations or depressions, no t wave inversions. Rate 84bpm, pr int 148ms, QRS dur 105ms, QT/QTc 379/420, P-R-T axes 37 -11 75. No changes from prior ekg. CT Head revealed no acute intracranial abnormalities, chronic atrophic changes. CXR revealed no acute cardiopulmonary processes CBC was essentially normal, CMP revealed Cr elevated at 1.41, gfr 36, elevated liver enzymes. Troponin was negative 0.02 MRI of brain showed no acute intracranial abnormality, no acute infarct, global parenchymal volume loss with chronic microvascular ischemic change, stable ventriculomegaly dictation. Appreciate Neurology input. Given high risk for seizure and no other explanation, patient was started on Keppra 500 mg twice a day. MRI brain was negative for any acute intracranial process. EEG pending. (2) Alzheimer's dementia Current Visit: Yes Status: Chronic Assessment and plan: at baseline. Qualifiers: Alzheimer's disease onset: unspecified onset Dementia behavioral disturbance: without behavioral disturbance Qualified Code(s): G30.9 - Alzheimer's disease, unspecified; F02.80 - Dementia in other diseases classified elsewhere without behavioral disturbance (3) Hypomagnesemia Current Visit: Yes Status: Acute Assessment and plan: replete - Subjective Interval history: Difficult to obtain ROS due to dementia. pt has no complains. - Constitutional Vitals: Temp Pulse Resp BP Pulse Ox 97.5 F L 58 16 142/61 94 L 07/18/16 11:35 07/18/16 11:35 07/18/16 11:35 07/18/16 11:35 07/18/16 11:35 General appearance: Present: cooperative, A&O X 1, pleasant, no acute distress - Respiratory Respiratory exam: Present: CTAB - Cardiovascular Cardiovascular exam: Present: RRR - GI/Abdominal GI/Abdominal exam: Present: normal bowel sounds, soft. Absent: distended, tenderness - Extremities Exam Extremities exam: Absent: pedal edema - Neurological Exam Neurological exam: Present: alert, strengths equal and symetr throughout. Absent: facial droop, speech deficit Internal Medicine: Result - Labs CBC & Chem 7: 07/18/16 03:31 07/18/16 03:31 Labs: Short CBC 07/18/16 Range/Units 03:31 WBC 8.3 (4.3-11.1) K/mcL Hgb 10.5 L (11.5-15.4) g/dL Hct 31.6 L (35.3-44.9) % Plt Count 314 (140-400) K/mcL Neutrophils # 5.4 (1.6-8.9) K/mcL BMP 07/18/16 03:31 Sodium 137 Potassium 4.0 Chloride 104 Carbon Dioxide 27 BUN 17 Creatinine 1.28 H Glucose 86 Calcium 8.9 - ABG Interpretation ABG results: PT/INR, D-dimer PT 11.8 Seconds (9.4-12.1) 07/18/16 03:31 - Impressions Impressions Brain MRI 07/18/16 12:26 IMPRESSION: 1. Motion degrades images limiting evaluation. 2. No acute intracranial abnormality. No acute infarct. 3. Global parenchymal volume loss with chronic microvascular ischemic change. 4. Ventricular dilatation is slightly out of proportion to the cortical sulci. A component of hydrocephalus cannot be excluded. This appears similar to the prior exam. D/ / Junior Musa MD / Junior Musa MD Interpreting Provider: Junior Musa MD Consult Discharge Plan - Plan Referrals: Jerilyn Carl, AIRPLANE DESIGNER [Primary Care Provider] -
[2016-07-18] MEDS: Magnesium Oxide 400 MG TABLET PO SCH (21:54)
[2016-07-18] MEDS: Mirtazapine 15 MG TABLET PO SCH (21:55)
[2016-07-19] MEDS: levETIRAcetam 250 MG TABLET PO SCH (05:48)
[2016-07-19] MEDS: 0.9 % Sodium Chloride 1,000 ML IVC SCH (05:48)
[2016-07-19] MEDS: Magnesium Oxide 400 MG TABLET PO SCH (08:34)
[2016-07-19 11:01] VITALS: BP 126/50
--- NOTE | 2016-07-19 12:10 | EEG/EMG/Oth Biometrics Report ---
EEG Procedure Report Date of procedure: 07/19/16 Procedure Note: This is a report of a 21 channel bipolar and referential montage EEG. The posterior dominant rhythm consisted of mixed moderate voltage beta frequencies present in all leads bilaterally as well as superimposed theta frequency. This rhythm attenuates symmetrically with eye opening. Hyperventilation is not performed during the recording. Periods of drowsiness and stage II sleep identified as referenced by dropout of the posterior dominant rhythm, and the emergence of vertex activity, K complexes, and sleep spindles. The most outstanding feature of the recording was the presence of phase reversals emanating from the left frontal temporal lobe region which are particularly noticeable during sleep. An electrical field is also identifiable phase reversal. This is indeed consistent with epileptiform potential. Photic stimulation is performed and does not produce a driving response. The EKG strip reveals sinus bradycardia at 54 beats per minute. Impressions: 1. there is an abnormal epileptogenic focus identified in the left frontal temporal regions. Etiologies for this might include vascular, neoplastic, infectious, and degenerative. 2. Mild generalized encephalopathy. Etiologies for this interpretation could include toxic, metabolic, postictal, degenerative, medication affect. Please correlate clinically. The documentation in the history of HPI and plan were at least partially created by [employer] voice recognition technology by Dr. Hayes. Errors in grammar, wording or other phrases may exist. If errors are found after the documentation signed, they will be addressed individually in the addendum section of this document when appropriate.
--- NOTE | 2016-07-19 12:47 | Neurology Progress Note ---
Date of Encounter: 07/19/16 Time of Encounter: 12:45 Assessment and Plan (1) Dementia Current Visit: No Status: Acute Qualifiers: Dementia type: Alzheimer's disease Alzheimer's disease onset: late-onset Dementia behavioral disturbance: without behavioral disturbance Qualified Code (s): G30.1 - Alzheimer's disease with late onset; F02.80 - Dementia in other diseases classified elsewhere without behavioral disturbance (2) Alzheimer's dementia Current Visit: Yes Status: Chronic It is not uncommon for individuals with senile dementia of the Alzheimer's type to develop seizures as the process progresses. The EEG does reveal an irritable focus localized left frontotemporal lobe region. The MRI was negative for any type of specific destructive process there however. She is a bit drowsy however not encephalopathic. I will simply decrease her Keppra dosage to 250 mg twice a day and follow up with her as an outpatient. I will likely increase it to 500 twice a day [address] road. You may discharge her at your discretion. Qualifiers: Alzheimer's disease onset: unspecified onset Dementia behavioral disturbance: without behavioral disturbance Qualified Code(s): G30.9 - Alzheimer's disease, unspecified; F02.80 - Dementia in other diseases classified elsewhere without behavioral disturbance Subjective Interval history: The chart was reviewed, the patient was seen and examined. Case was also discussed with nursing. Patient is having further spells of unresponsiveness. However she has been a bit more somnolent since yesterday. She is however arousable to voice, after arousing she is awake alert and oriented to person only. And she is pleasantly confused and can maintain a conversation. She is not encephalopathic. EEG reveals an area of seizure focus from the left frontal temporal region. The MRI was completed and reveals diffuse generalized cortical atrophy as well as chronic deep white matter changes. No evidence of cortical infarction or a neoplastic process is identified in the left frontal temporal region. It is not a common for individuals with Alzheimer's and significant cortical atrophy to develop seizure activity and later life. Objective - Constitutional Vitals: Temp Pulse Resp BP Pulse Ox 97.5 F L 66 16 126/50 96 07/19/16 11:00 07/19/16 11:00 07/19/16 11:00 07/19/16 11:00 07/19/16 11:00 - Neurological Exam Motor Examination: Present: grossly full strength in all extremities Sensation intact: Present: intact Mental Status Examination: Present: awake, alert, oriented to person Cranial nerve examination: Present: PERRL, EOMI, visual aranda intact, corneal reflexes brisk symmetrically, sensory to face intact, mastication intact, no facial asymmetry is present, no dysarthria Results - Laboratory Findings CBC and BMP: 07/18/16 03:31 07/18/16 03:31 Abnormal lab findings: Abnormal lab results RBC 3.61 M/mcL (3.82-4.97) L 07/18/16 03:31 Hgb 10.5 g/dL (11.5-15.4) L 07/18/16 03:31 Hct 31.6 % (35.3-44.9) L 07/18/16 03:31 Creatinine 1.28 mg/dL (0.57-1.11) H 07/18/16 03:31 Est GFR ( Amer) 48 (> 60) L 07/18/16 03:31 Est GFR (Non-Af Amer) 40 (> 60) L 07/18/16 03:31 POC Glucose 143 (58-89) H 07/19/16 11:31 Magnesium 1.5 mg/dL (1.6-2.6) L 07/18/16 03:31 AST 56 Units/L (5-34) H 07/17/16 14:32 ALT 63 Units/L (0-55) H 07/17/16 14:32 Albumin 3.0 g/dL (3.5-5.0) L 07/17/16 14:32 Albumin/Globulin Ratio 0.9 (1.1-2.2) L 07/17/16 14:32 Consult Discharge Plan - Plan Referrals: Jerilyn Carl, TEAM LEADER SURGERY [Primary Care Provider] -
--- NOTE | 2016-07-19 13:59 | Discharge Summary ---
Date of Encounter: 07/19/16 Time of Encounter: 14:02 - Discharge Diagnosis (1) Seizure Priority: Primary Status: Acute (2) Alzheimer's dementia Priority: Secondary Status: Chronic Qualifiers: Alzheimer's disease onset: unspecified onset Dementia behavioral disturbance: without behavioral disturbance Qualified Code(s): G30.9 - Alzheimer's disease, unspecified; F02.80 - Dementia in other diseases classified elsewhere without behavioral disturbance (3) Hypomagnesemia Priority: Primary Status: Acute - Discharge Medications Prescriptions: LevETIRAcetam [Keppra] 250 mg PO Q12HR #60 tablet Magnesium Oxide [Mag-Ox] 400 mg PO BID #60 tablet Home Medications: Atorvastatin [Lipitor] 80 mg PO QAM 05/06/15 [History] Donepezil [Aricept] 10 mg PO HS 05/06/15 [History] Levothyroxine [Synthroid] 50 mcg PO QAM 05/06/15 [History] Trospium Chloride 20 mg PO BID 02/29/16 [History] Mirtazapine [Remeron] 15 mg PO HS #30 tablet 03/03/16 [Rx] Vamshi/Poly/DEX Opth OINT [Maxitrol OPTH Oint] 1 appl OP HS 07/07/16 [History] PrednisoLONE Acetate 1% Opth [PredFORTE 1%] 1 drop OP TID 07/07/16 [History] LevETIRAcetam [Keppra] 250 mg PO Q12HR #60 tablet 07/19/16 [Rx] Magnesium Oxide [Mag-Ox] 400 mg PO BID #60 tablet 07/19/16 [Rx] Allergies/Adverse Reactions: Allergies Pneumococcal Vaccine Allergy (Verified 05/09/15 14:21) Hives Procedures/tests Complete & Pending: Procedures Performed prior 72 hours Category Date Time Status MR head/brain wo con [MR] Stat MRI 07/18/16 12:26 Completed Date of admission: 07/17/16 16:31 Primary care physician: Jerilyn Carl CNP Consults: 07/17/16 18:13 Consult to Neurology [CONS] Routine Consulting Provider: Neurology [facility] Reason for Consult: possible seizure-like activity Time Notified: 18:13 Call Completed: Yes 07/18/16 16:12 Consult to Interpret Exam [CONS] Routine Consulting Provider: Ernie Hayes Consult to Interpret Exam: Interpret EEG - Patient Status Disposition: Home, Self-Care Condition: Good Functional capacity at discharge: uses cane/walker Overall status at discharge: patient is progressing back to baseline - Discharge Instructions Instructions: Levetiracetam (By mouth), Magnesium Oxide (By mouth), Non- epileptic Seizures (GEN) Follow Up With: Ernie Hayes, [Partnered Physician] - (F/U in 1-2 weeks Web request was sent for an appointment) Jerilyn Carl, EXHIBITION ORGANISER [Primary Care Provider] - ( Web request was sent for an appointment) Forms: ED Satisfaction Letter - Diet and Activity Activity: resume usual activities as tolerated Diet: low fat, low cholesterol Hospital course: Ms. Monteiro is a 85 year old female with past medical history of Alzheimer dementia. Patient is an 85 year old female with history of Alzheimer dementia, hyperlipidemia, hypertension, arthritis, hypothyroidism, osteoporosis, and arthritis who was brought in with possible seizure activity this afternoon. Report of shaking, screaming, fixed eyes, foaming at mouth, and unresponsiveness. EKG revealed normal sinus rhythm, no st elevations or depressions, no t wave inversions. Rate 84bpm, pr int 148ms, QRS dur 105ms, QT/QTc 379/420, P-R-T axes 37 -11 75. No changes from prior ekg. CT Head revealed no acute intracranial abnormalities, chronic atrophic changes. CXR revealed no acute cardiopulmonary processes CBC was essentially normal, CMP revealed Cr elevated at 1.41, gfr 36, elevated liver enzymes. Troponin was negative 0.02 MRI of brain showed no acute intracranial abnormality, no acute infarct, global parenchymal volume loss with chronic microvascular ischemic change, stable ventriculomegaly dictation. EEG was positive for epileptiforme activity. Appreciate Neurology input. Given high risk for seizure due to her dementia and no other explanation for symptoms, patient was started on Keppra 500 mg twice a day. Keppra decreased to 250 mg bid due to drowsiness. f.u in Dr Hayes clinic in 2 weeks - Time Spent with Patient Total time spent providing and/or coordinating discharge services: - Constitutional Vitals: Temp Pulse Resp BP Pulse Ox 97.5 F L 66 16 126/50 96 07/19/16 11:00 07/19/16 11:00 07/19/16 11:00 07/19/16 11:00 07/19/16 11:00 General appearance: Present: cooperative, A&O X 1, pleasant, no acute distress
[2016-07-19] MEDS ORDERED: levETIRAcetam 250 MG TABLET PO SCH (18:00)
--- NOTE | 2016-07-21 08:10 | Electrocardiograph Report ---
[place] [id number] Test Date: 2016-07-17 Pat Name: Vale Monteiro Department: 104 Room: 3B Gender: F Heart Specialist: RYAN : [id number] Requested By: Davina Wilson Order Number: [id number] Reading MD: Felipe Hwang MD Measurements Intervals Stem Rate: 84 P: 37 CO: 148 QRS: -11 QRSD: 105 T: 75 QT: 379 QTc: 420 Interpretive Statements SINUS RHYTHM Electronically Signed On 07-21-2016 8:08:47 EDT by Felipe Hwang MD
== END 2016-07-19 15:58 | disposition home or self-care (01) ==
LOC: EMEROO 13:15 → 3BNU 13:15
PROVIDERS: ADMIT Nurse Practitioner Family; ATTEND Nurse Practitioner Family

== ENCOUNTER 2017-01-12 16:54 | Observation (INO) ==
--- NOTE | 2017-01-12 17:22 | Emergency Department Note ---
Disposition Clinical Impression: UTI (urinary tract infection) Qualifiers: Urinary tract infection type: acute cystitis Hematuria presence: without hematuria Qualified Code(s): N30.00 - Acute cystitis without hematuria Constipation Qualifiers: Constipation type: unspecified constipation type Qualified Code(s): K59.00 - Constipation, unspecified Failure to thrive Qualifiers: Failure to thrive age range: in adult Qualified Code(s): R62.7 - Adult failure to thrive Disposition: Admitted As Inpatient Condition: Fair Referrals: NONE,PCP [Non-Partnered Physician] - Forms: Work/School Release, ED Satisfaction Letter Time of Disposition: 19:05 Abdominal Pain HPI - General Chief Complaint: ED Abdominal Pain Stated Complaint: Abnormal labs, Abdominal pain Time Seen by Provider: 01/12/17 17:18 Source: EMS Mode of arrival: EMS Limitations: altered mental status (History of dementia) Nursing Notes Reviewed: Yes Vital Signs Reviewed: Yes - History of Present Illness HPI Narrative: Constipation abnormal labs. Labs were reviewed her white count was 11.8 normal hilum 0.4. Her GFR was elevated with a creatinine of 1.3. Pt Subjective Complaint: other (Constipation) Pain Scale: 0 - Related Data Home Medications Medication Instructions Recorded Confirmed Atorvastatin [Lipitor] 80 mg PO QAM 05/06/15 07/17/16 Donepezil [Aricept] 10 mg PO HS 05/06/15 07/17/16 Levothyroxine [Synthroid] 50 mcg PO QAM 05/06/15 07/17/16 Trospium Chloride 20 mg PO BID 02/29/16 07/17/16 Vamshi/Poly/DEX Opth OINT [Maxitrol 1 appl OP HS 07/07/16 07/17/16 OPTH Oint] PrednisoLONE Acetate 1% Opth 1 drop OP TID 07/07/16 07/17/16 [PredFORTE 1%] Previous Rx's Medication Instructions Recorded Mirtazapine [Remeron] 15 mg PO HS #30 tablet 03/03/16 Magnesium Oxide [Mag-Ox] 400 mg PO BID #60 tablet 07/19/16 levETIRAcetam [Keppra] 250 mg PO Q12HR #60 tablet 07/19/16 Allergies Allergy/AdvReac Type Severity Reaction Status Date / Time Pneumococcal Vaccine Allergy Hives Verified 05/09/15 14:21 Limitations: ROS unobtainable due to patients medical condition (Severe dementia ) Abdominal Pain PMH - Past Medical History Medical history: Reports: arthritis, dementia, hyperlipidemia, hypertension, osteoporosis, renal disease, thyroid disease Female Surgical History: Reports: carotid endarterectomy, hysterectomy [employer]ER history: Reports: non-contributory Psychiatric history: Reports: no psych history - Social History Smoking status: Former smoker Alcohol use: Reports: none Drug use: Reports: none Physical Exam - General Limitations: no limitations General appearance: alert, in no apparent distress - Head Head exam: atraumatic, normocephalic, normal inspection - Eye Eye exam: Present: normal appearance, PERRL, EOMI - ENT ENT exam: normal exam, normal oropharynx, mucous membranes moist - Neck Neck exam: Present: normal inspection, full ROM, trachea midline - Chest Chest inspection: Present: normal inspection, symmetric chest wall rise - Respiratory Respiratory exam: Present: normal lung sounds bilaterally - Cardiovascular Cardiovascular exam: Present: regular rate, normal rhythm, normal heart sounds - Abdominal Exam Abdominal exam: Present: soft. Absent: guarding, rebound - Extremities Exam Extremities exam: Present: normal inspection - Expanded Lower Extremity Exam Neurovascular/Tendon exam: Absent: motor deficit, sensory deficit, tendon deficit Gait: not tested/not observed - Back Exam Back exam: Present: normal inspection, full ROM. Absent: tenderness - Neurological Exam Neurological exam: Present: alert, oriented X3 - Psychiatric Psychiatric exam: Present: normal affect, normal mood - Skin Skin exam: Present: warm, dry, intact, normal color Course - Reevaluation(s) Reevaluation #1: 86-year-old demented patient who comes in with decreased interactions with her family not eating or drinking. Has not had a bowel movement in 5 days. Her Here shows a probable UTI does have a large amount of stool in her colon. Admitted for IV fluids antibiotics. Family does note that they do not want any heroic efforts if anything would occur. Time: 19:03 - Consultations Consultation #1: Dscussed with Kimani Patel, admit. Time: 18:55 Vital Signs Temperature 98 F 01/12/17 17:01 Pulse Rate 82 01/12/17 17:01 Respiratory Rate 18 01/12/17 17:01 Blood Pressure 163/74 01/12/17 17:01 O2 Sat by Pulse Oximetry 98 01/12/17 17:01 Temperature 98 F 01/12/17 17:01 Pulse Rate 82 01/12/17 17:01 Respiratory Rate 18 01/12/17 17:01 Blood Pressure 163/74 01/12/17 17:01 O2 Sat by Pulse Oximetry 98 01/12/17 17:01 Oxygen Delivery Oxygen Delivery Room Air Abdominal Pain - Lab Data Result diagrams: 01/12/17 17:20 01/12/17 17:20 Lab Results 01/12/17 01/12/17 01/12/17 Range/Units 17:20 17:20 17:20 WBC 14.5 H (4.3-11.1) K/mcL RBC 4.26 (3.82-4.97) M/mcL Hgb 11.5 (11.5-15.4) g/dL Hct 37.2 (35.3-44.9) % MCV 87.3 (83.0-100.0) fL MCH 27.0 L (28.0-33.3) pg MCHC 30.9 L (31.6-35.5) g/dL RDW 14.2 (11.5-14.5) % Plt Count 352 (140-400) K/mcL MPV 8.5 L (9.4-12.4) fL Immature Gran % 0.7 (0-4) % Seg Neutrophils % 78.4 % Lymphocytes % 13.1 % Monocytes % 7.1 % Eosinophils % 0.5 % Basophils % 0.2 % Neutrophils # 11.4 H (1.6-8.9) K/mcL Lymphocytes # 1.9 (0.6-4.6) K/mcL Monocytes # 1.0 (0.0-1.3) K/mcL Eosinophils # 0.1 (0.0-0.6) K/mcL Basophils # 0.0 (0.0-0.2) K/mcL Sodium 146 H (136-145) mEq/L Potassium 4.3 (3.5-4.5) mEq/L Chloride 107 (98-109) mEq/L Carbon Dioxide 27 (19-29) mEq/L BUN 38 H (7-20) mg/dL Creatinine 1.59 H (0.57-1.11) mg/dL Est GFR ( Amer) 37 L (> 60) Est GFR (Non-Af Amer) 31 L (> 60) BUN/Creatinine Ratio 24 (6-26) Glucose 117 H (70-99) mg/dL Calculated Osmolality 312 H (280-300) Lactic Acid 1.4 (0.5-2.2) mmol/L Calcium 9.4 (8.6-10.8) mg/dL Total Bilirubin 0.7 (0.2-1.2) mg/dL Direct Bilirubin 0.4 (0.0-0.5) mg/dL Indirect Bilirubin 0.3 (0.0-1.2) mg/dL AST 30 (5-34) Units/L ALT 22 (0-55) Units/L Alkaline Phosphatase 101 (38-126) Units/L Troponin I (0-0.03) ng/mL Serum Total Protein 7.5 (6.0-8.3) g/dL Albumin 3.0 L (3.5-5.0) g/dL Globulin 4.5 H (2.4-3.5) g/dL Albumin/Globulin Ratio 0.7 L (1.1-2.2) Amylase 41 (25-125) Units/L Lipase 34 (8-78) Units/L Urine Color (Yellow) Urine Clarity (Clear) Urine pH (5.0-8.0) pH Units Ur Specific Hugo (1.010-1.025) Urine Protein (Neg-Trace) mg/dL Urine Glucose (UA) (Normal) mg/dL Urine Ketones (Negative) mg/dL Urine Blood (Negative) Urine Nitrite (Negative) Urine Bilirubin (Negative) Urine Urobilinogen (Normal) mg/dL Ur Leukocyte Esterase (Negative) Urine Microscopic RBC (0-3) per hpf Urine Microscopic WBC (0-3) per hpf Ur Squamous Epith Cells (None-Few) per lpf Amorphous Sediment (Few) Urine Bacteria (None-Few) per hpf Hyaline Casts (None-Few) per lpf Urine Mucus (Few) Urine Yeast Ur Culture Indicated? (NO) 01/12/17 01/12/17 Range/Units 17:20 18:00 WBC (4.3-11.1) K/mcL RBC (3.82-4.97) M/mcL Hgb (11.5-15.4) g/dL Hct (35.3-44.9) % MCV (83.0-100.0) fL MCH (28.0-33.3) pg MCHC (31.6-35.5) g/dL RDW (11.5-14.5) % Plt Count (140-400) K/mcL MPV (9.4-12.4) fL Immature Gran % (0-4) % Seg Neutrophils % % Lymphocytes % % Monocytes % % Eosinophils % % Basophils % % Neutrophils # (1.6-8.9) K/mcL Lymphocytes # (0.6-4.6) K/mcL Monocytes # (0.0-1.3) K/mcL Eosinophils # (0.0-0.6) K/mcL Basophils # (0.0-0.2) K/mcL Sodium (136-145) mEq/L Potassium (3.5-4.5) mEq/L Chloride (98-109) mEq/L Carbon Dioxide (19-29) mEq/L BUN (7-20) mg/dL Creatinine (0.57-1.11) mg/dL Est GFR ( Amer) (> 60) Est GFR (Non-Af Amer) (> 60) BUN/Creatinine Ratio (6-26) Glucose (70-99) mg/dL Calculated Osmolality (280-300) Lactic Acid (0.5-2.2) mmol/L Calcium (8.6-10.8) mg/dL Total Bilirubin (0.2-1.2) mg/dL Direct Bilirubin (0.0-0.5) mg/dL Indirect Bilirubin (0.0-1.2) mg/dL AST (5-34) Units/L ALT (0-55) Units/L Alkaline Phosphatase (38-126) Units/L Troponin I 0.03 (0-0.03) ng/mL Serum Total Protein (6.0-8.3) g/dL Albumin (3.5-5.0) g/dL Globulin (2.4-3.5) g/dL Albumin/Globulin Ratio (1.1-2.2) Amylase (25-125) Units/L Lipase (8-78) Units/L Urine Color Yellow (Yellow) Urine Clarity Cloudy A (Clear) Urine pH 6.0 (5.0-8.0) pH Units Ur Specific Hugo 1.024 (1.010-1.025) Urine Protein 30 H (Neg-Trace) mg/dL Urine Glucose (UA) Normal (Normal) mg/dL Urine Ketones Negative (Negative) mg/dL Urine Blood Small H (Negative) Urine Nitrite Negative (Negative) Urine Bilirubin Small H (Negative) Urine Urobilinogen Normal (Normal) mg/dL Ur Leukocyte Esterase Negative (Negative) Urine Microscopic RBC 0-3 (0-3) per hpf Urine Microscopic WBC 5-15 H (0-3) per hpf Ur Squamous Epith Cells Many H (None-Few) per lpf Amorphous Sediment Few (Few) Urine Bacteria None Seen (None-Few) per hpf Hyaline Casts Few (None-Few) per lpf Urine Mucus Few (Few) Urine Yeast Test Not Performed Ur Culture Indicated? YES A (NO) - EKG Data EKG attestation: Yes I reviewed and interpreted this EKG. EKG shows normal: sinus rhythm Rate: normal Rhythm: NSR Interpretation: no acute changes
[2017-01-12 17:26] LABS: Basophils % 0.2 %; Eosinophils # 0.1 K/mcL (0.0-0.6); Eosinophils % 0.5 %; Hematocrit 37.2 % (35.3-44.9); Hemoglobin 11.5 g/dL (11.5-15.4); Immature Granulocytes % 0.7 % (0-4); Lymphocytes # 1.9 K/mcL (0.6-4.6); Lymphocytes % 13.1 %; Mean Corpuscular HGB Conc 30.9 g/dL (31.6-35.5); Mean Corpuscular Volume 87.3 fL (83.0-100.0); Mean Platelet Volume 8.5 fL (9.4-12.4); Monocytes % 7.1 %; Neutrophils # 11.4 K/mcL (1.6-8.9); Platelet Count 352 K/mcL (140-400); Red Blood Count 4.26 M/mcL (3.82-4.97); Red Cell Distribution Width 14.2 % (11.5-14.5); Segmented Neutrophils % 78.4 %
[2017-01-12 17:44] LABS: Albumin/Globulin Ratio 0.7 (1.1-2.2); Bilirubin,Direct 0.4 mg/dL (0.0-0.5); Bilirubin,Indirect 0.3 mg/dL (0.0-1.2); Bilirubin,Total 0.7 mg/dL (0.2-1.2); Calcium 9.4 mg/dL (8.6-10.8); Globulin 4.5 g/dL (2.4-3.5); Potassium 4.3 mEq/L (3.5-4.5); Total Protein 7.5 g/dL (6.0-8.3)
[2017-01-12 18:12] LABS: Bilirubin,Urine Small (Negative); Blood,Urine Small (Negative); Clarity,Urine Cloudy (Clear); Color,Urine Yellow (Yellow); Glucose,Urine (UA) Normal (Normal); Ketones,Urine Negative (Negative); Leukocyte Esterase,Urine Negative (Negative); Nitrite,Urine Negative (Negative); Protein,Urine 30 mg/dL (Neg-Trace); Specific Gravity,Urine 1.024 (1.010-1.025); Urobilinogen,Urine Normal (Normal)
[2017-01-12 18:16] LABS: Bacteria,Urine None Seen per hpf (None-Few); RBC,Urine 0-3 per hpf (0-3); Squamous Epithelial Cell,Urine Many per lpf (None-Few)
[2017-01-12 18:51] LABS: Amorphous Sediment,Urine Few (Few); Hyaline Casts,Urine Few per lpf (None-Few)
[2017-01-12 18:52] LABS: Mucus,Urine Few (Few)
[2017-01-12] MEDS ORDERED: Naloxone 0.4 MG/ML INJ IVP PRN (21:57)
[2017-01-12] MEDS ORDERED: Ondansetron 4 MG/2 ML VIAL IVP PRN (21:57)
[2017-01-12] MEDS ORDERED: Artificial Tears SOLN 15 ML BOTTLE OP PRN (22:00)
--- NOTE | 2017-01-12 22:16 | Internal Med History&Physical ---
Date of Encounter: 01/12/17 Time of Encounter: 21:50 Assessment and Plan (1) Altered mental status Current visit: Yes Status: Acute Likely secondary to UTI history of recurrent UTIs last UTI in june, urine culture positive for citrobacter freundii complex sensitive to Ceftriaxone, will continue follow up urine culture IV fluids Qualifiers: Altered mental status type: unspecified Qualified Code(s): R41.82 - Altered mental status, unspecified (2) Urinary tract infection Current visit: No Status: Acute as listed above Qualifiers: Urinary tract infection type: site unspecified Hematuria presence: without hematuria Qualified Code(s): N39.0 - Urinary tract infection, site not specified (3) Constipation Current visit: Yes Status: Acute Severe Constipation CT abd/pelvis reviewed Started on Senna plus, lactulose, miralax Use Enema support in am if patient remains constipated despite above interventions, consider surgical evaluation Qualifiers: Constipation type: unspecified constipation type Qualified Code(s): K59.00 - Constipation, unspecified (4) Alzheimer's dementia Current visit: No Status: Chronic continue home medications Qualifiers: Alzheimer's disease onset: unspecified onset Dementia behavioral disturbance: without behavioral disturbance Qualified Code(s): G30.9 - Alzheimer's disease, unspecified; F02.80 - Dementia in other diseases classified elsewhere without behavioral disturbance (5) Chronic kidney disease, stage 2 (mild) Current visit: No Status: Chronic renal function appears to be at baseline will continue to monitor (6) Hyperlipidemia Current visit: No Status: Chronic continue home medications Qualifiers: Hyperlipidemia type: unspecified Qualified Code(s): E78.5 - Hyperlipidemia , unspecified (7) Hypertension Current visit: No Status: Chronic BP within acceptable range continue home medications Qualifiers: Hypertension type: essential hypertension Qualified Code(s): I10 - Essential (primary) hypertension (8) Seizure Current visit: No Status: Chronic continue home medications (9) DVT prophylaxis Current visit: No Status: Acute Heparin SQ Internal Medicine - H&P: HPI Chief complaint: change in mental status Admitted From: Home Plans for Post Hospital Care: Transfer Director Cost Care History of present illness: Ms. Monteiro is a 86 year old snf resident with PMH of Alzheimer dementia, hypertension, hld, hypothyroidism who is sent from the [facility] for worsening mental status. Patient is seen and examined with daughter (POA) present at bedside. Patient is oriented to self at baseline which has not been the case for the last few days due to which history was provided by the daughter. As per the daughter, patient is currently undergoing treatment for UTI at the [facility] for the last few weeks and has been constipated for the last five days. She states for the last few days,patient's mental status has worsened with decrease in PO intake. Patient has been bed bound and not oriented even to self, which is not her baseline. At baseline pt is oriented to self and ambulates with a walker. She states patient got extremely nauseous this morning after eating along with worsening mental status, which prompted her visit to the ER. During my evaluation, patient remains confused but denies any discomfort. Daughter states that the patient has been complaining of abd pain for the last few days. Pt denies any pain or discomfort at this time. Code Status: Full code (I had a detailed conversation with patient's POA- daughter Aury Rm [phone] in regards to patient's advance directives , she elected the patient to be full code) Past Med Surg Social Fam HX - Past Medical History Medical history: arthritis, dementia, hyperlipidemia, hypertension, osteoporosis , renal disease, thyroid disease Psychiatric history: no psych history - Past Surgical History Surgical History: carotid endarterectomy (L 04/2004) - Social History Smoking Status: Former smoker Smokeless Tobacco Status: No Alcohol use: none Drug use: none - Family History Daughter Living Status: Still Living Hx Family Neuromuscular Disorders: Yes (Parkinson Disease) Sister Hx Family Cardiac Disorders: Yes (hypertension, MD) Hx Family Cancer: Yes (unspecified) Hx Family GI Disorders: Yes (gallbladder disease unspecified) Hx Family Endocrine Disorder: Yes (diabetes) Son Hx Family Respiratory Disorders: Yes (unspecified) Mother Living Status: Hx Family Cardiac Disorders: Yes (hypertension) Hx Family Cancer: Yes (unspecified) Hx Family Endocrine Disorder: Yes (diabetes) Brother Hx Family Cardiac Disorders: Yes (HTN) Hx Family Endocrine Disorder: Yes (Diabetes) Internal Medicine - H&P: Meds Donepezil [Aricept] 10 mg PO HS 05/06/15 [History] Trospium Chloride 20 mg PO BID 02/29/16 [History] Mirtazapine [Remeron] 15 mg PO HS #30 tablet 03/03/16 [Rx] Atorvastatin Calcium [Lipitor] 80 mg PO HS 01/12/17 [History] Cranberry Fruit Extract [Cranberry] 500 mg PO DAILY 01/12/17 [History] Docusate [Colace] 100 mg PO DAILY 01/12/17 [History] Lacosamide [Vimpat] 50 mg PO BID 01/12/17 [History] Lactulose [Enulose] 10 gm PO DAILY 01/12/17 [History] Levothyroxine [Synthroid] 50 mcg PO 0630 01/12/17 [History] Polyethylene Glycol 3350 [MiraLAX] 17 gm PO DAILY 01/12/17 [History] Polyvinyl Alcohol [Artificial Tears] 2 drop OP Q4H PRN 01/12/17 [History] Sulfamethoxazole/Trimeth DS [Bactrim DS] 1 each PO DAILY 01/12/17 [History] Tearless Baby Shampoo 1 appl TP AD 01/12/17 [History] 3 Allergy/AdvReac Type Severity Reaction Status Date / Time Pneumococcal Vaccine Allergy Hives Verified 05/09/15 14:21 All Systems PM: A 10-system review of systems was performed and is negative for pertinent findings except as documented above in the HPI. - Constitutional Constitutional: as per HPI - Constitutional Vitals: Temp Pulse Resp BP Pulse Ox 98.4 F 81 16 148/78 94 01/12/17 21:13 01/12/17 21:13 01/12/17 21:13 01/12/17 21:13 01/12/17 21:13 General appearance: Present: A&O X 0, no acute distress - Head Head exam: Present: atraumatic, normocephalic - Eye Eye exam: Present: conjuntiva pink, sclera anicteric - Respiratory Respiratory exam: Present: CTAB. Absent: respiratory distress, wheezes - Cardiovascular Cardiovascular exam: Present: RRR, +S1, +S2. Absent: diastolic murmur, gallop, rubs, systolic murmur - GI/Abdominal GI/Abdominal exam: Present: normal bowel sounds, soft. Absent: tenderness - Extremities Exam Extremities exam: Present: pedal edema, warm, radial pulses palpable and symmetrical. Absent: calf tenderness - Neurological Exam Neurological exam: Present: alert Internal Med - H&P Results - Labs CBC & Chem 7: 01/12/17 17:20 01/12/17 17:20
[2017-01-12] MEDS: [UNRECOGNIZED DRUG - SUPPLY] TP SCH (23:47)
[2017-01-13] MEDS: 0.9 % Sodium Chloride 1,000 ML IVC SCH ×2 (00:11→18:36)
[2017-01-13] MEDS: Sennosides/Docusate Sodium TABLET PO SCH ×4 (01:02→21:10)
[2017-01-13] MEDS: Mirtazapine 15 MG TABLET PO SCH ×3 (01:07→21:10)
[2017-01-13] MEDS: Lactulose Oral Soln 20 GM/30 ML UDC PO SCH ×4 (01:09→21:10)
[2017-01-13] MEDS: *HR* Heparin 5,000 UNIT/ML VIAL SQ SCH ×2 (06:31→18:35)
[2017-01-13 08:22] LABS: Calcium 8.7 mg/dL (8.6-10.8); Magnesium 2.2 mg/dL (1.6-2.6); Phosphorous 2.9 mg/dL (2.3-4.7); Potassium 3.8 mEq/L (3.5-4.5)
[2017-01-13 09:22] LABS: Basophils % 0.3 %; Eosinophils # 0.2 K/mcL (0.0-0.6); Eosinophils % 1.4 %; Hematocrit 34.5 % (35.3-44.9); Hemoglobin 10.6 g/dL (11.5-15.4); Immature Granulocytes % 0.9 % (0-4); Lymphocytes # 1.9 K/mcL (0.6-4.6); Mean Corpuscular HGB Conc 30.7 g/dL (31.6-35.5); Mean Platelet Volume 8.9 fL (9.4-12.4); Monocytes # 0.9 K/mcL (0.0-1.3); Monocytes % 7.6 %; Neutrophils # 8.6 K/mcL (1.6-8.9); Platelet Count 348 K/mcL (140-400); Red Blood Count 3.92 M/mcL (3.82-4.97); Red Cell Distribution Width 14.2 % (11.5-14.5); Segmented Neutrophils % 73.8 %
--- NOTE | 2017-01-13 10:05 | Electrocardiograph Report ---
[place] [id number] Test Date: 2017-01-12 Pat Name: Vale Monteiro Department: 103 Room: 3B Gender: F Featherer: : 1930 Requested By: James Owen Order Number: [id number] Reading MD: Felipe Hwang MD Measurements Intervals [place] Rate: 82 P: 63 OK: 160 QRS: -12 QRSD: 83 T: 75 QT: 313 QTc: 352 Interpretive Statements SINUS RHYTHM BASELINE ARTIFACT Electronically Signed On 01-13-2017 10:04:22 EDT by Felipe Hwang MD
[2017-01-13] MEDS: (Cranberry Fruit Extract [Cranberry] 500 MG) PO SCH (10:16)
--- NOTE | 2017-01-13 17:29 | Internal Med Progress Note ---
Date of Encounter: 01/13/17 Time of Encounter: 12:00 - Assessment and plan (1) Alzheimer's dementia Current Visit: Yes Status: Acute Assessment and plan: Delirium precautions. Avoid excessive sedation. Frequent reorientation. Fall precautions. Skin protocol. Qualifiers: Alzheimer's disease onset: late-onset Dementia behavioral disturbance: without behavioral disturbance Qualified Code(s): G30.1 - Alzheimer's disease with late onset; F02.80 - Dementia in other diseases classified elsewhere without behavioral disturbance (2) CKD (chronic kidney disease) stage 3, GFR 30-59 ml/min Current Visit: No Status: Chronic Assessment and plan: Monitor GFR. Avoid nephrotoxins. (3) UTI (urinary tract infection) Current Visit: Yes Status: Acute Assessment and plan: IV ceftriaxone. Follow-up urine culture and sensitivities. Prior urine cultures from last 24 months reviewed the medical record grew Citrobacter and Klebsiella both sensitive to ceftriaxone. Qualifiers: Urinary tract infection type: acute cystitis Hematuria presence: without hematuria Qualified Code(s): N30.00 - Acute cystitis without hematuria (4) Altered mental status Current Visit: Yes Status: Acute Assessment and plan: Avoid sedatives. Qualifiers: Altered mental status type: unspecified Qualified Code(s): R41.82 - Altered mental status, unspecified - Subjective Interval history: She cannot provide history due to advanced dementia. She was brought to the hospital for worsening mental status. Per patient's son at bedside her mental status is slightly improved. - Constitutional Vitals: Temp Pulse Resp BP Pulse Ox 97.8 F 88 15 160/69 95 01/13/17 16:02 01/13/17 16:02 01/13/17 16:02 01/13/17 16:02 01/13/17 16:02 General appearance: Present: A&O X 0, A&O X 1, no acute distress - Eye Eye exam: Present: PERRL, conjuntiva pink, sclera anicteric Pupils: Present: PERRL - Respiratory Respiratory exam: Present: CTAB. Absent: accessory muscle use, rales, rhonchi, wheezes - Cardiovascular Cardiovascular exam: Present: RRR, +S1, +S2. Absent: diastolic murmur, gallop, rubs, systolic murmur - GI/Abdominal GI/Abdominal exam: Present: normal bowel sounds, soft, no peritoneal signs. Absent: distended, tenderness - Extremities Exam Extremities exam: Present: warm, radial pulses palpable and symmetrical. Absent : calf tenderness, cyanotic, pedal edema Internal Medicine: Result - Labs CBC & Chem 7: 01/13/17 07:48 01/13/17 07:48 Labs: Short CBC 01/13/17 Range/Units 07:48 WBC 11.6 H (4.3-11.1) K/mcL Hgb 10.6 L (11.5-15.4) g/dL Hct 34.5 L (35.3-44.9) % Plt Count 348 (140-400) K/mcL Neutrophils # 8.6 (1.6-8.9) K/mcL BMP 01/13/17 07:48 Sodium 145 Potassium 3.8 Chloride 109 Carbon Dioxide 25 BUN 35 H Creatinine 1.23 H Glucose 100 H Calcium 8.7 Consult Discharge Plan - Plan Referrals: Ricky Gamble MD [Primary Care Provider] -
[2017-01-13] MEDS: [UNRECOGNIZED DRUG - SUPPLY] TP SCH (21:12)
[2017-01-14] MEDS: 0.9 % Sodium Chloride 1,000 ML IVC SCH ×2 (00:03→04:59)
[2017-01-14] MEDS: *HR* Heparin 5,000 UNIT/ML VIAL SQ SCH ×2 (04:59→17:49)
[2017-01-14 06:00] LABS: Basophils % 0.2 %; Eosinophils # 0.2 K/mcL (0.0-0.6); Hematocrit 30.1 % (35.3-44.9); Hemoglobin 9.2 g/dL (11.5-15.4); Immature Granulocytes % 0.6 % (0-4); Lymphocytes # 2.1 K/mcL (0.6-4.6); Lymphocytes % 21.1 %; Mean Corpuscular HGB Conc 30.6 g/dL (31.6-35.5); Mean Corpuscular Hemoglobin 26.9 pg (28.0-33.3); Mean Platelet Volume 8.8 fL (9.4-12.4); Monocytes # 0.8 K/mcL (0.0-1.3); Neutrophils # 6.8 K/mcL (1.6-8.9); Platelet Count 301 K/mcL (140-400); Red Blood Count 3.42 M/mcL (3.82-4.97); Red Cell Distribution Width 14.4 % (11.5-14.5); Segmented Neutrophils % 68.1 %
[2017-01-14 06:14] LABS: BUN/Creatinine Ratio 25 (6-26); Blood Urea Nitrogen 25 mg/dL (7-20); Calcium 8.1 mg/dL (8.6-10.8); Carbon Dioxide 22 mEq/L (19-29); Chloride 113 mEq/L (98-109); Glucose 97 mg/dL (70-99); Osmolality,Calculated 302 (280-300); Potassium 3.5 mEq/L (3.5-4.5); Sodium 144 mEq/L (136-145); eGFR For African Americans > 60 (> 60); eGFR For Non-African Americans 52 (> 60)
[2017-01-14] MEDS: Lactulose Oral Soln 20 GM/30 ML UDC PO SCH ×2 (10:36→22:13)
[2017-01-14] MEDS: (Cranberry Fruit Extract [Cranberry] 500 MG) PO SCH (10:36)
[2017-01-14] MEDS: Sennosides/Docusate Sodium TABLET PO SCH ×2 (10:36→22:07)
--- NOTE | 2017-01-14 13:52 | Internal Med Progress Note ---
<AdrianareynaldopavanPaul ruano - Last Filed: 01/14/17 16:59> Date of Encounter: 01/14/17 Time of Encounter: 12:45 - Assessment and plan (1) Alzheimer's dementia Current Visit: Yes Status: Acute Assessment and plan: - Fall precautions. - Avoid excessive sedation. - Continue Donepizil. Qualifiers: Alzheimer's disease onset: late-onset Dementia behavioral disturbance: without behavioral disturbance Qualified Code(s): G30.1 - Alzheimer's disease with late onset; F02.80 - Dementia in other diseases classified elsewhere without behavioral disturbance (2) CKD (chronic kidney disease) stage 3, GFR 30-59 ml/min Current Visit: No Status: Chronic Assessment and plan: GFR increased from 42 to 52 since yesterday. Creatinine has improved from 1.23 to 1.01. - Avoid nephrotoxins. - IVF increased. (3) UTI (urinary tract infection) Current Visit: No Status: Inactive Assessment and plan: Urine culture shows no growth. She is afebrile, no leukocytosis. Will discontinue antibiotics. Qualifiers: Urinary tract infection type: site unspecified Hematuria presence: without hematuria Qualified Code(s): N39.0 - Urinary tract infection, site not specified (4) Altered mental status Current Visit: Yes Status: Acute Assessment and plan: Avoid sedatives. Qualifiers: Altered mental status type: unspecified Qualified Code(s): R41.82 - Altered mental status, unspecified (5) Constipation Current Visit: Yes Status: Acute Assessment and plan: Patient has been having bowel movements, but in small quantities. - Patient was given ducolax suppository. - enema was ordered. - Continue senna plus, lactulose, and miralax. Qualifiers: Constipation type: unspecified constipation type Qualified Code(s): K59.00 - Constipation, unspecified - Subjective Interval history: Ms. Monteiro is a 86 year old intermediate resident with PMH of Alzheimer dementia, hypertension, hld, hypothyroidism who is sent from the [place] for worsening mental status. When seen today, patient was hard to arouse. She was A& Ox1. She still complains of RLQ abdominal pain and nausea. She denies any vomiting, shortness of breath, headaches, or light-headedness. - Constitutional Vitals: Temp Pulse Resp BP Pulse Ox 98.9 F 74 20 146/72 95 01/14/17 11:34 01/14/17 11:34 01/14/17 11:34 01/14/17 07:31 01/14/17 11:34 General appearance: Present: A&O X 1, no acute distress Exam: Very lethargic. Hard to arouse. - Respiratory Respiratory exam: Present: CTAB. Absent: respiratory distress, rhonchi, wheezes , tachypnea - Cardiovascular Cardiovascular exam: Present: RRR, +S1, +S2. Absent: diastolic murmur, systolic murmur - GI/Abdominal GI/Abdominal exam: Present: normal bowel sounds, soft, tenderness (Tenderness to palpation of RLQ. ). Absent: guarding, rebound - Extremities Exam Extremities exam: Present: radial pulses palpable and symmetrical. Absent: pedal edema Additional comments: Pedal pulses intact bilaterally. Internal Medicine: Result - Labs CBC & Chem 7: 01/14/17 05:37 01/14/17 05:37 Labs: Short CBC 01/14/17 Range/Units 05:37 WBC 10.0 (4.3-11.1) K/mcL Hgb 9.2 L (11.5-15.4) g/dL Hct 30.1 L (35.3-44.9) % Plt Count 301 (140-400) K/mcL Neutrophils # 6.8 (1.6-8.9) K/mcL BMP 01/14/17 05:37 Sodium 144 Potassium 3.5 Chloride 113 H Carbon Dioxide 22 BUN 25 H D Creatinine 1.01 Glucose 97 Calcium 8.1 L Consult Discharge Plan - Plan Referrals: Ricky Gamble MD [Primary Care Provider] - <Andrey Tyler - Last Filed: 01/14/17 17:51> Date of Encounter: 01/14/17 - Assessment and plan (1) Alzheimer's dementia Current Visit: Yes Status: Acute Qualifiers: Alzheimer's disease onset: late-onset Dementia behavioral disturbance: without behavioral disturbance Qualified Code(s): G30.1 - Alzheimer's disease with late onset; F02.80 - Dementia in other diseases classified elsewhere without behavioral disturbance (2) CKD (chronic kidney disease) stage 3, GFR 30-59 ml/min Current Visit: No Status: Chronic (3) UTI (urinary tract infection) Current Visit: Yes Status: Acute Qualifiers: Urinary tract infection type: acute cystitis Hematuria presence: without hematuria Qualified Code(s): N30.00 - Acute cystitis without hematuria (4) Altered mental status Current Visit: Yes Status: Acute Qualifiers: Altered mental status type: unspecified Qualified Code(s): R41.82 - Altered mental status, unspecified - Constitutional Vitals: Temp Pulse Resp BP Pulse Ox 98.1 F 74 19 127/75 94 01/14/17 15:21 01/14/17 15:21 01/14/17 15:21 01/14/17 15:21 01/14/17 15:21 Internal Medicine: Result - Labs CBC & Chem 7: 01/14/17 05:37 01/14/17 05:37 Labs: Short CBC 01/14/17 Range/Units 05:37 WBC 10.0 (4.3-11.1) K/mcL Hgb 9.2 L (11.5-15.4) g/dL Hct 30.1 L (35.3-44.9) % Plt Count 301 (140-400) K/mcL Neutrophils # 6.8 (1.6-8.9) K/mcL BMP 01/14/17 05:37 Sodium 144 Potassium 3.5 Chloride 113 H Carbon Dioxide 22 BUN 25 H D Creatinine 1.01 Glucose 97 Calcium 8.1 L - Attending Attestation I examined this patient and my medical decision-making was reviewed with the Resident Physician. I agree with the documented findings, disposition and treatment plan as described except to the extent set forth below. Patient cannot provide history due to advanced dementia. Urinalysis with few WBCs, and negative leukocyte esterase and nitrite. Urine culture is negative. Her symptoms have not significantly changed with antibiotic treatment. Altogether this goes against a diagnosis of UTI and therefore UTI was ruled out. Stop IV antibiotics. Continue with IV fluid hydration. Nutrition consult.
[2017-01-14] MEDS ORDERED: Bisacodyl 10 MG RECTAL SUPPOSITORY RC ONE (14:08)
[2017-01-14] MEDS ORDERED: Milk and Molasses Enema 200 ML RC ONE (16:04)
[2017-01-14] MEDS ORDERED: 0.9 % Sodium Chloride 1,000 ML IVC SCH (16:15)
[2017-01-14] MEDS: Mirtazapine 15 MG TABLET PO SCH (22:00)
[2017-01-14] MEDS: [UNRECOGNIZED DRUG - SUPPLY] TP SCH (22:13)
[2017-01-15 05:03] LABS: Basophils % 0.2 %; Eosinophils # 0.1 K/mcL (0.0-0.6); Eosinophils % 1.7 %; Hematocrit 29.5 % (35.3-44.9); Hemoglobin 9.2 g/dL (11.5-15.4); Immature Granulocytes % 0.4 % (0-4); Lymphocytes # 2.1 K/mcL (0.6-4.6); Lymphocytes % 25.2 %; Mean Corpuscular HGB Conc 31.2 g/dL (31.6-35.5); Mean Corpuscular Hemoglobin 27.6 pg (28.0-33.3); Mean Corpuscular Volume 88.6 fL (83.0-100.0); Mean Platelet Volume 9.2 fL (9.4-12.4); Monocytes # 0.7 K/mcL (0.0-1.3); Monocytes % 8.1 %; Neutrophils # 5.4 K/mcL (1.6-8.9); Platelet Count 284 K/mcL (140-400); Red Blood Count 3.33 M/mcL (3.82-4.97); Red Cell Distribution Width 13.8 % (11.5-14.5); Segmented Neutrophils % 64.4 %
[2017-01-15] MEDS: *HR* Heparin 5,000 UNIT/ML VIAL SQ SCH ×2 (05:14→17:36)
[2017-01-15 05:22] LABS: BUN/Creatinine Ratio 22 (6-26); Blood Urea Nitrogen 23 mg/dL (7-20); Carbon Dioxide 24 mEq/L (19-29); Chloride 113 mEq/L (98-109); Glucose 90 mg/dL (70-99); Osmolality,Calculated 303 (280-300); Potassium 3.5 mEq/L (3.5-4.5); Sodium 145 mEq/L (136-145); eGFR For African Americans > 60 (> 60); eGFR For Non-African Americans 50 (> 60)
[2017-01-15] MEDS: Sennosides/Docusate Sodium TABLET PO SCH ×2 (10:05→20:41)
[2017-01-15] MEDS: Lactulose Oral Soln 20 GM/30 ML UDC PO SCH ×3 (10:06→20:42)
[2017-01-15] MEDS: (Cranberry Fruit Extract [Cranberry] 500 MG) PO SCH (10:41)
--- NOTE | 2017-01-15 13:17 | Discharge Summary ---
<Paul Meza - Last Filed: 01/15/17 17:48> Date of Encounter: 01/15/17 Time of Encounter: 11:30 - Discharge Diagnosis (1) Alzheimer's dementia Priority: Primary Status: Acute Qualifiers: Alzheimer's disease onset: late-onset Dementia behavioral disturbance: without behavioral disturbance Qualified Code(s): G30.1 - Alzheimer's disease with late onset; F02.80 - Dementia in other diseases classified elsewhere without behavioral disturbance (2) CKD (chronic kidney disease) stage 3, GFR 30-59 ml/min Priority: Primary Status: Chronic (3) UTI (urinary tract infection) Priority: Primary Status: Inactive Qualifiers: Urinary tract infection type: site unspecified Hematuria presence: without hematuria Qualified Code(s): N39.0 - Urinary tract infection, site not specified (4) Altered mental status Priority: Primary Status: Acute Qualifiers: Altered mental status type: unspecified Qualified Code(s): R41.82 - Altered mental status, unspecified (5) Constipation Priority: Primary Status: Acute Qualifiers: Constipation type: unspecified constipation type Qualified Code(s): K59.00 - Constipation, unspecified - Discharge Medications Home Medications: Donepezil [Aricept] 10 mg PO HS 05/06/15 [History] Trospium Chloride 20 mg PO BID 02/29/16 [History] Mirtazapine [Remeron] 15 mg PO HS #30 tablet 03/03/16 [Rx] Atorvastatin Calcium [Lipitor] 80 mg PO HS 01/12/17 [History] Cranberry Fruit Extract [Cranberry] 500 mg PO DAILY 01/12/17 [History] Docusate [Colace] 100 mg PO DAILY 01/12/17 [History] Lacosamide [Vimpat] 50 mg PO BID 01/12/17 [History] Lactulose [Enulose] 10 gm PO DAILY 01/12/17 [History] Levothyroxine [Synthroid] 50 mcg PO 0630 01/12/17 [History] Polyethylene Glycol 3350 [MiraLAX] 17 gm PO DAILY 01/12/17 [History] Polyvinyl Alcohol [Artificial Tears] 2 drop OP Q4H PRN 01/12/17 [History] Tearless Baby Shampoo 1 appl TP AD 01/12/17 [History] Allergies/Adverse Reactions: 3 Allergy/AdvReac Type Severity Reaction Status Date / Time Pneumococcal Vaccine Allergy Hives Verified 05/09/15 14:21 Date of admission: 01/12/17 20:12 Primary care physician: Ricky Gamble MD Consults: 01/13/17 15:10 Consult to Chief Substation Operator [CONS] Routine Reason for SW Consult: Confirm bed hold with [facility] 01/14/17 11:24 dietary consult [Consult to Nutrition] [CONS] Routine Comment: Consulting Provider: NUTRITION Reason for Dietary Consult: PO Supplementation Discharging clinician: Andrey Tyler (Susana) Anticipated date of discharge: 01/16/17 - Patient Status Disposition: Transfer SNF Condition: Fair Overall status at discharge: patient is progressing back to baseline - Discharge Instructions Follow Up With: Ricky Gamble MD [Primary Care Provider] - - Diet and Activity Activity: as per physical therapy Diet: other (Renal diet. ) Interval History: Ms. Monteiro is a 86 year old intermediate resident with PMH of Alzheimer dementia, hypertension, HLD, and hypothyroidism who is sent from the intermediate for worsening mental status. Hospital course: Ms. Monteiro is a 86 year old intermediate resident with PMH of Alzheimer dementia, hypertension, HLD, and hypothyroidism who is sent from the intermediate for worsening mental status. As per daughter, patient's mental status had worsened with decrease in PO intake. At baseline patient is oriented to self and ambulates with a walker. On presentation, patient was already going for treatment of UTI. She had an elevated WBC of 14.5, a low albumin of 3, and an elevated creatinine of 1.59. Urine cultures were taken and she was started on ceftriaxone. Patient's WBC count continued to downtrend. Today it was at 8.4. She was given IV fluids and renally dosed for medications for her CKD. Today her creatinine has improved to 1.05. Urine cultures came back and were negative for bacterial growth. Antibiotics were stopped as a result. Patient has also been constipated for 5 days prior to arrival. Her CT demonstrated stool throughout her colon. She was put on enema, senna plus, lactulose, and miralax. She has had bowel movements since admission, but have been minimal. Patient's mental status has slightly improved since admission per daughter, but she is still confused. When seen today, patient was somnolent and difficult to arouse. She was A&Ox1. She said that she still has generalized abdominal pain. She denies any nausea, vomiting, shortness of breath, dizziness, light-headedness, syncope, cough, fever, or chills. Patient was given an enema for her constipation today, but was unable to tolerate it. As a result, a fecal disimpaction procedure was performed. An enema was then subsequently given. Patient will be discharged to a intermediate. - Time Spent with Patient Total time spent providing and/or coordinating discharge services: Greater than 30 minutes - Constitutional Vitals: Temp Pulse Resp BP Pulse Ox 98.7 F 73 15 124/70 93 01/15/17 11:07 01/15/17 11:07 01/15/17 11:07 01/15/17 11:07 01/15/17 11:07 General appearance: Present: A&O X 1, no acute distress - Respiratory Respiratory exam: Present: CTAB. Absent: respiratory distress, rhonchi, wheezes , tachypnea - Cardiovascular Cardiovascular exam: Present: RRR, +S1, +S2. Absent: diastolic murmur, systolic murmur - GI/Abdominal GI/Abdominal exam: Present: distended, normal bowel sounds, soft, tenderness ( Tenderness to deep palpation in all 4 quadrants. ). Absent: guarding <Andrey Tyler - Last Filed: 01/15/17 18:36> Date of Encounter: 01/15/17 - Discharge Diagnosis (1) Alzheimer's dementia Status: Acute Qualifiers: Alzheimer's disease onset: late-onset Dementia behavioral disturbance: without behavioral disturbance Qualified Code(s): G30.1 - Alzheimer's disease with late onset; F02.80 - Dementia in other diseases classified elsewhere without behavioral disturbance (2) CKD (chronic kidney disease) stage 3, GFR 30-59 ml/min Status: Chronic (3) UTI (urinary tract infection) Status: Acute Qualifiers: Urinary tract infection type: acute cystitis Hematuria presence: without hematuria Qualified Code(s): N30.00 - Acute cystitis without hematuria (4) Altered mental status Status: Acute Qualifiers: Altered mental status type: unspecified Qualified Code(s): R41.82 - Altered mental status, unspecified Date of admission: 01/12/17 20:12 Primary care physician: Ricky Gabmle MD Consults: 01/13/17 15:10 Consult to Chief Substation Operator [CONS] Routine Reason for SW Consult: Confirm bed hold with [facility] 01/14/17 11:24 dietary consult [Consult to Nutrition] [CONS] Routine Comment: Consulting Provider: NUTRITION Reason for Dietary Consult: PO Supplementation Hospital course: Ms. Monteiro is a 86 year old female - Time Spent with Patient Total time spent providing and/or coordinating discharge services: - Constitutional Vitals: Temp Pulse Resp BP Pulse Ox 98.7 F 73 15 124/70 93 01/15/17 11:07 01/15/17 11:07 01/15/17 11:07 01/15/17 11:07 01/15/17 11:07 - Attending Attestation I examined this patient and my medical decision-making was reviewed with the Resident Physician. I agree with the documented findings, disposition and treatment plan as described except to the extent set forth below. With the legal assistant of the patient's nurse and my resident physician I performed a digital rectal disimpaction and extracted several fecal lites from the rectal vault. We will continue with aggressive bowel regimen. Monitor mental status. She has a high risk for morbidity, mortality and complications due to acute change in mental status.
--- NOTE | 2017-01-15 15:06 | Physician Discharge Referral ---
[facility] Referral Info Transfer To: F Provider in Charge: Dr. Tyler Provider in Charge after Transfer: PCP - Diagnosis (1) Alzheimer's dementia Priority: Primary Status: Acute (2) CKD (chronic kidney disease) stage 3, GFR 30-59 ml/min Priority: Primary Status: Chronic (3) UTI (urinary tract infection) Priority: Primary Status: Inactive (4) Altered mental status Priority: Primary Status: Acute (5) Constipation Priority: Primary Status: Acute - Transfer Medications Home Medications: Donepezil [Aricept] 10 mg PO HS 05/06/15 [History] Trospium Chloride 20 mg PO BID 02/29/16 [History] Mirtazapine [Remeron] 15 mg PO HS #30 tablet 03/03/16 [Rx] Atorvastatin Calcium [Lipitor] 80 mg PO HS 01/12/17 [History] Cranberry Fruit Extract [Cranberry] 500 mg PO DAILY 01/12/17 [History] Docusate [Colace] 100 mg PO DAILY 01/12/17 [History] Lacosamide [Vimpat] 50 mg PO BID 01/12/17 [History] Lactulose [Enulose] 10 gm PO DAILY 01/12/17 [History] Levothyroxine [Synthroid] 50 mcg PO 0630 01/12/17 [History] Polyethylene Glycol 3350 [MiraLAX] 17 gm PO DAILY 01/12/17 [History] Polyvinyl Alcohol [Artificial Tears] 2 drop OP Q4H PRN 01/12/17 [History] Tearless Baby Shampoo 1 appl TP AD 01/12/17 [History] Allergies/Adverse Reactions: 3 Allergy/AdvReac Type Severity Reaction Status Date / Time Pneumococcal Vaccine Allergy Hives Verified 05/09/15 14:21 - Respiratory Orders Smoking Cessation: Smoking cessation has been advised. For more information, call the [place] Tobacco Quit Line at 1-601-FDYB-NOW. - Ancillary Orders May use pressure relief devices daily prn, May go on CELESTE w/family/respon alliance party w /meds at nurse discretion PRN, May consult with Dentist, Cutting Room Supervisor, Marketing Operations Consultant PRN - Advance Directives Code Status: Full Code - Mobility Orders Bedrest - Treatments Skin tear care topically daily PRN per policy, May check for fecal impaction rectally daily PRN, Fleet enema rectally every other day PRN cleansing purposes - Diet Orders Renal CERTIFICATION: I certify that the transfer of the above named patient to an Extended Care Facility is necessary for the continuing treatment of the diagnosis listed. The above information is true and accurate reflection of patient's current condition. Confidential - Redisclosure prohibited without a patient's written consent.
[2017-01-15] MEDS ORDERED: Bisacodyl 10 MG RECTAL SUPPOSITORY RC ONE (16:07)
[2017-01-15] MEDS: Mirtazapine 15 MG TABLET PO SCH (20:42)
[2017-01-15] MEDS: [UNRECOGNIZED DRUG - SUPPLY] TP SCH (21:36)
[2017-01-16 04:39] LABS: Basophils % 0.1 %; Eosinophils # 0.1 K/mcL (0.0-0.6); Eosinophils % 1.5 %; Hematocrit 29.3 % (35.3-44.9); Hemoglobin 9.3 g/dL (11.5-15.4); Immature Granulocytes % 0.6 % (0-4); Lymphocytes # 2.3 K/mcL (0.6-4.6); Lymphocytes % 28.1 %; Mean Corpuscular HGB Conc 31.7 g/dL (31.6-35.5); Mean Corpuscular Hemoglobin 27.7 pg (28.0-33.3); Mean Corpuscular Volume 87.2 fL (83.0-100.0); Mean Platelet Volume 9.2 fL (9.4-12.4); Monocytes # 0.8 K/mcL (0.0-1.3); Monocytes % 9.3 %; Platelet Count 289 K/mcL (140-400); Red Blood Count 3.36 M/mcL (3.82-4.97); Red Cell Distribution Width 13.8 % (11.5-14.5); Segmented Neutrophils % 60.4 %
[2017-01-16 04:54] LABS: BUN/Creatinine Ratio 19 (6-26); Blood Urea Nitrogen 18 mg/dL (7-20); Carbon Dioxide 25 mEq/L (19-29); Chloride 112 mEq/L (98-109); Glucose 111 mg/dL (70-99); Osmolality,Calculated 301 (280-300); Potassium 3.2 mEq/L (3.5-4.5); Sodium 144 mEq/L (136-145); eGFR For African Americans > 60 (> 60); eGFR For Non-African Americans 55 (> 60)
[2017-01-16] MEDS: *HR* Heparin 5,000 UNIT/ML VIAL SQ SCH ×2 (05:59→18:12)
[2017-01-16] MEDS ORDERED: Potassium Chloride Elixir 20 MEQ/15 ML UDC PO ONE (06:58)
[2017-01-16] MEDS: Lactulose Oral Soln 20 GM/30 ML UDC PO SCH ×2 (08:10→22:02)
[2017-01-16] MEDS: Sennosides/Docusate Sodium TABLET PO SCH ×2 (08:10→22:02)
[2017-01-16] MEDS: (Cranberry Fruit Extract [Cranberry] 500 MG) PO SCH (08:11)
--- NOTE | 2017-01-16 08:59 | Internal Med Progress Note ---
<SusanaPaul - Last Filed: 01/16/17 17:07> Date of Encounter: 01/16/17 Time of Encounter: 07:45 - Assessment and plan (1) Constipation Current Visit: Yes Status: Acute Assessment and plan: Patient has been having bowel movements, but in small quantities. Patient was given ducolax suppository and enema but did not help. Fecal deimpaction was performed yesterday but was unable to elicit a bowel movement. Patient is currently not c/o nausea or vomiting. - Spoke to surgery and they suggested to start magnesium citrate. Will re-check patient again in 4 hours and administer another dose if necessary. If patient does not have a bowel movement by tonight, will give gatorade miralax colonoscopy bowel prep. Surgery will see patient tomorrow if she does not improve. -Continue senna plus, lactulose, and miralax. Qualifiers: Constipation type: unspecified constipation type Qualified Code(s): K59.00 - Constipation, unspecified (2) Alzheimer's dementia Current Visit: Yes Status: Acute Assessment and plan: - Fall precautions. - Avoid excessive sedation. - Continue Donepizil. Qualifiers: Alzheimer's disease onset: late-onset Dementia behavioral disturbance: without behavioral disturbance Qualified Code(s): G30.1 - Alzheimer's disease with late onset; F02.80 - Dementia in other diseases classified elsewhere without behavioral disturbance (3) CKD (chronic kidney disease) stage 3, GFR 30-59 ml/min Current Visit: No Status: Chronic Assessment and plan: GFR increased from 42 to 52 since yesterday. Creatinine has improved from 1.01 to 0.96. - Avoid nephrotoxins. - IVF. (4) UTI (urinary tract infection) Current Visit: No Status: Inactive Assessment and plan: Urine culture shows no growth. She is afebrile, no leukocytosis. Antibiotics discontinued. Qualifiers: Urinary tract infection type: site unspecified Hematuria presence: without hematuria Qualified Code(s): N39.0 - Urinary tract infection, site not specified (5) Altered mental status Current Visit: Yes Status: Acute Assessment and plan: Avoid sedatives. Qualifiers: Altered mental status type: unspecified Qualified Code(s): R41.82 - Altered mental status, unspecified - Subjective Interval history: Ms. Monteiro is a 86 year old [facility] resident with PMH of Alzheimer dementia, hypertension, hld, hypothyroidism who is sent from the [place] for worsening mental status. When seen today, patient was somnolent and hard to arouse. She was A&Ox1. She still complains of RLQ abdominal pain She denies any nausea, vomiting, shortness of breath, headaches, or light-headedness. - Constitutional Vitals: Temp Pulse Resp BP Pulse Ox 98.6 F 71 16 148/72 95 01/16/17 07:40 01/16/17 07:40 01/16/17 07:40 01/16/17 07:40 01/16/17 07:40 General appearance: Present: A&O X 1, no acute distress - Respiratory Respiratory exam: Present: CTAB. Absent: respiratory distress, rhonchi, wheezes , tachypnea - Cardiovascular Cardiovascular exam: Present: RRR, +S1, +S2. Absent: diastolic murmur, systolic murmur - GI/Abdominal GI/Abdominal exam: Present: distended, normal bowel sounds, soft, tenderness ( Minor tenderness to 4 quadrants on deep palpation. ). Absent: guarding, rebound Internal Medicine: Result - Labs CBC & Chem 7: 01/16/17 04:05 01/16/17 04:05 Labs: Short CBC 01/16/17 Range/Units 04:05 WBC 8.2 (4.3-11.1) K/mcL Hgb 9.3 L (11.5-15.4) g/dL Hct 29.3 L (35.3-44.9) % Plt Count 289 (140-400) K/mcL Neutrophils # 5.0 (1.6-8.9) K/mcL BMP 01/16/17 04:05 Sodium 144 Potassium 3.2 L Chloride 112 H Carbon Dioxide 25 BUN 18 Creatinine 0.96 Glucose 111 H Calcium 8.0 L Consult Discharge Plan - Plan Referrals: Ricky Gamble MD [Primary Care Provider] - <Andrey Tyler - Last Filed: 01/16/17 18:12> Date of Encounter: 01/16/17 - Assessment and plan (1) Alzheimer's dementia Current Visit: Yes Status: Acute Qualifiers: Alzheimer's disease onset: late-onset Dementia behavioral disturbance: without behavioral disturbance Qualified Code(s): G30.1 - Alzheimer's disease with late onset; F02.80 - Dementia in other diseases classified elsewhere without behavioral disturbance (2) CKD (chronic kidney disease) stage 3, GFR 30-59 ml/min Current Visit: No Status: Chronic (3) UTI (urinary tract infection) Current Visit: Yes Status: Acute Qualifiers: Urinary tract infection type: acute cystitis Hematuria presence: without hematuria Qualified Code(s): N30.00 - Acute cystitis without hematuria (4) Altered mental status Current Visit: Yes Status: Acute Qualifiers: Altered mental status type: unspecified Qualified Code(s): R41.82 - Altered mental status, unspecified - Constitutional Vitals: Temp Pulse Resp BP Pulse Ox 97.8 F 81 14 165/77 94 01/16/17 15:56 01/16/17 15:56 01/16/17 15:56 01/16/17 15:56 01/16/17 15:56 Internal Medicine: Result - Labs CBC & Chem 7: 01/16/17 04:05 01/16/17 04:05 Labs: Short CBC 01/16/17 Range/Units 04:05 WBC 8.2 (4.3-11.1) K/mcL Hgb 9.3 L (11.5-15.4) g/dL Hct 29.3 L (35.3-44.9) % Plt Count 289 (140-400) K/mcL Neutrophils # 5.0 (1.6-8.9) K/mcL BMP 01/16/17 04:05 Sodium 144 Potassium 3.2 L Chloride 112 H Carbon Dioxide 25 BUN 18 Creatinine 0.96 Glucose 111 H Calcium 8.0 L - Attending Attestation I examined this patient and my medical decision-making was reviewed with the Resident Physician, Dr. Meza. I agree with the documented findings, disposition and treatment plan as described except to the extent set forth below. I have independently obtained history and examined the patient and my findings are summarized below: Patient is drowsy, arousable, in no acute distress. Abdomen is soft tender to palpation with no guarding or rebound Plan: Severe constipation We will treat with aggressive bowel regimen including magnesium sulfate rate and MiraLAX. We attempted manual disimpaction and were able to remove a good amount of hard stool however patient did not have a bowel movement yet. Enemas and suppositories have been unsuccessful. We will consult general surgery to help treat this severe constipation.
[2017-01-16] MEDS ORDERED: Polyethylene Glycol 3350 255 GM POWDER PO ONE (16:18)
[2017-01-16] MEDS: Mirtazapine 15 MG TABLET PO SCH (22:02)
[2017-01-16] MEDS: [UNRECOGNIZED DRUG - SUPPLY] TP SCH (22:03)
[2017-01-17 06:02] LABS: Basophils % 0.2 %; Eosinophils # 0.1 K/mcL (0.0-0.6); Eosinophils % 1.5 %; Hematocrit 30.1 % (35.3-44.9); Hemoglobin 9.4 g/dL (11.5-15.4); Immature Granulocytes % 0.4 % (0-4); Lymphocytes # 2.4 K/mcL (0.6-4.6); Lymphocytes % 28.2 %; Mean Corpuscular HGB Conc 31.2 g/dL (31.6-35.5); Mean Corpuscular Hemoglobin 27.5 pg (28.0-33.3); Mean Platelet Volume 9.5 fL (9.4-12.4); Monocytes # 0.8 K/mcL (0.0-1.3); Monocytes % 9.1 %; Neutrophils # 5.2 K/mcL (1.6-8.9); Platelet Count 327 K/mcL (140-400); Red Blood Count 3.42 M/mcL (3.82-4.97); Red Cell Distribution Width 14.2 % (11.5-14.5); Segmented Neutrophils % 60.6 %
[2017-01-17 06:20] LABS: BUN/Creatinine Ratio 17 (6-26); Blood Urea Nitrogen 16 mg/dL (7-20); Calcium 8.2 mg/dL (8.6-10.8); Carbon Dioxide 25 mEq/L (19-29); Chloride 113 mEq/L (98-109); Glucose 101 mg/dL (70-99); Osmolality,Calculated 303 (280-300); Potassium 3.5 mEq/L (3.5-4.5); Sodium 146 mEq/L (136-145); eGFR For African Americans > 60 (> 60); eGFR For Non-African Americans 55 (> 60)
[2017-01-17] MEDS: *HR* Heparin 5,000 UNIT/ML VIAL SQ SCH ×2 (06:28→17:49)
--- NOTE | 2017-01-17 08:32 | Internal Med Progress Note ---
<Paul Meza - Last Filed: 01/17/17 12:40> Date of Encounter: 01/17/17 Time of Encounter: 07:30 - Assessment and plan (1) Constipation Current Visit: Yes Status: Acute Assessment and plan: Patient had a bowel movement yesterday, but in small quantity. She was given magnesium citrate yesterday, but patient has not been very compliant with taking it. A gatorade miralax bowel prep was given yesterday, but again patient has not been compliant with taking it. Patient is currently not c/o nausea or vomiting. - Will speak to surgery today. -Continue senna plus, lactulose, and miralax. Qualifiers: Constipation type: unspecified constipation type Qualified Code(s): K59.00 - Constipation, unspecified (2) Alzheimer's dementia Current Visit: Yes Status: Acute Assessment and plan: - Fall precautions. - Avoid excessive sedation. - Continue Donepizil. Qualifiers: Alzheimer's disease onset: late-onset Dementia behavioral disturbance: without behavioral disturbance Qualified Code(s): G30.1 - Alzheimer's disease with late onset; F02.80 - Dementia in other diseases classified elsewhere without behavioral disturbance (3) CKD (chronic kidney disease) stage 3, GFR 30-59 ml/min Current Visit: No Status: Chronic Assessment and plan: GFR increased from 42 to 52 since yesterday. Creatinine has stayed at 0.96. - Avoid nephrotoxins. - IVF. (4) UTI (urinary tract infection) Current Visit: No Status: Inactive Assessment and plan: Urine culture shows no growth. She is afebrile, no leukocytosis. Antibiotics discontinued. Qualifiers: Urinary tract infection type: site unspecified Hematuria presence: without hematuria Qualified Code(s): N39.0 - Urinary tract infection, site not specified (5) Altered mental status Current Visit: Yes Status: Acute Assessment and plan: Avoid sedatives. Qualifiers: Altered mental status type: unspecified Qualified Code(s): R41.82 - Altered mental status, unspecified - Subjective Interval history: Ms. Monteiro is a 86 [facility] old [facility] resident with PMH of Alzheimer dementia, hypertension, hld, hypothyroidism who [place] for worsening mental status. When seen today, patient was somnolent and hard to arouse. She was unable to answer some of my questions. Unable to attain A&O status. She still complains of RLQ abdominal pain She denies any nausea, vomiting, shortness of breath, headaches, or light-headedness. - Constitutional Vitals: Temp Pulse Resp BP Pulse Ox 97.8 F 75 15 168/77 93 01/17/17 06:40 01/17/17 06:40 01/17/17 06:40 01/17/17 06:40 01/17/17 06:40 General appearance: Present: no acute distress Exam: Very somnolent. - Respiratory Respiratory exam: Present: CTAB. Absent: respiratory distress, rhonchi, wheezes , tachypnea - Cardiovascular Cardiovascular exam: Present: RRR, +S1, +S2. Absent: diastolic murmur, systolic murmur - GI/Abdominal GI/Abdominal exam: Present: distended, normal bowel sounds, soft. Absent: guarding, rebound, tenderness - Extremities Exam Extremities exam: Present: radial pulses palpable and symmetrical. Absent: pedal edema Additional comments: Pedal pulses intact bilaterally. Internal Medicine: Result - Labs CBC & Chem 7: 01/17/17 04:58 01/17/17 04:58 Labs: Short CBC 01/17/17 Range/Units 04:58 WBC 8.6 (4.3-11.1) K/mcL Hgb 9.4 L (11.5-15.4) g/dL Hct 30.1 L (35.3-44.9) % Plt Count 327 (140-400) K/mcL Neutrophils # 5.2 (1.6-8.9) K/mcL BMP 01/17/17 04:58 Sodium 146 H Potassium 3.5 Chloride 113 H Carbon Dioxide 25 BUN 16 Creatinine 0.96 Glucose 101 H Calcium 8.2 L Consult Discharge Plan - Plan Referrals: Ricky Gamble MD [Primary Care Provider] - <Andrey Tyler - Last Filed: 01/17/17 17:10> Date of Encounter: 01/17/17 - Assessment and plan (1) Alzheimer's dementia Current Visit: Yes Status: Acute Qualifiers: Alzheimer's disease onset: late-onset Dementia behavioral disturbance: without behavioral disturbance Qualified Code(s): G30.1 - Alzheimer's disease with late onset; F02.80 - Dementia in other diseases classified elsewhere without behavioral disturbance (2) CKD (chronic kidney disease) stage 3, GFR 30-59 ml/min Current Visit: No Status: Chronic (3) UTI (urinary tract infection) Current Visit: Yes Status: Acute Qualifiers: Urinary tract infection type: acute cystitis Hematuria presence: without hematuria Qualified Code(s): N30.00 - Acute cystitis without hematuria (4) Altered mental status Current Visit: Yes Status: Acute Qualifiers: Altered mental status type: unspecified Qualified Code(s): R41.82 - Altered mental status, unspecified - Constitutional Vitals: Temp Pulse Resp BP Pulse Ox 98.6 F 69 15 134/62 96 01/17/17 15:11 01/17/17 15:11 01/17/17 15:11 01/17/17 15:11 01/17/17 15:11 Internal Medicine: Result - Labs CBC & Chem 7: 01/17/17 04:58 01/17/17 04:58 Labs: Short CBC 01/17/17 Range/Units 04:58 WBC 8.6 (4.3-11.1) K/mcL Hgb 9.4 L (11.5-15.4) g/dL Hct 30.1 L (35.3-44.9) % Plt Count 327 (140-400) K/mcL Neutrophils # 5.2 (1.6-8.9) K/mcL BMP 01/17/17 04:58 Sodium 146 H Potassium 3.5 Chloride 113 H Carbon Dioxide 25 BUN 16 Creatinine 0.96 Glucose 101 H Calcium 8.2 L - Attending Attestation I examined this patient and my medical decision-making was reviewed with the Resident Physician, Dr Bravo. I agree with the documented findings, disposition and treatment plan as described except to the extent set forth below. My findings are summarized below: Patient has severe constipation. She does not take oral medication due to lethargy and advanced dementia. Her mental status is likely worsened by her current condition. Her abdomen is soft, nontender to palpation. There are diminished bowel sounds audible. I discussed the case with the surgeon in palliative care. We will proceed with Dobbhoff tube insertion and MiraLAX bowel prep to treat the severe constipation. The plan of care was discussed with POA who is in agreement.
[2017-01-17] MEDS: Sennosides/Docusate Sodium TABLET PO SCH ×2 (09:43→20:20)
[2017-01-17] MEDS: (Cranberry Fruit Extract [Cranberry] 500 MG) PO SCH (09:43)
[2017-01-17] MEDS: Lactulose Oral Soln 20 GM/30 ML UDC PO SCH ×2 (09:43→20:20)
--- NOTE | 2017-01-17 13:30 | Palliative - Consult Note ---
Date of Encounter: 01/17/17 Time of Encounter: 12:45 - Assessment and Plan (1) Constipation Current Visit: Yes Status: Acute Assessment and plan: Abdomen CT - Large amount of stool throughout the colon and especially within the rectum which is prominently distended. Findings concerning for impaction. No findings to suggest small bowel obstruction. Patient has little response to enemas, miralax, magnesium citrate. Discussed case with Dr. Tyler and given patients somnolence and inability to tolerate po and dobhoff tube is warranted. Will discuss with daughter Aury. Qualifiers: Constipation type: unspecified constipation type Qualified Code(s): K59.00 - Constipation, unspecified (2) Goals of care, counseling/discussion Current Visit: Yes Status: Acute Assessment and plan: Called [facility] and requested DNR forms or Advanced directives. Discussed with Arlet via telephone that at [facility] patient desired DNRCC - A and no intubation. Arlet reports that patient desires DNRCC - A, DNI status. I explained interventions for each status and changed patient to DNRCC - A, DNI. Explained that patient has been somnolent and unable to tolerate po intake. Arlet in route to hospital and will discuss dobhoff tube once she arrives. (3) Alzheimer's dementia Current Visit: No Status: Chronic Qualifiers: Alzheimer's disease onset: unspecified onset Dementia behavioral disturbance: without behavioral disturbance Qualified Code(s): G30.9 - Alzheimer's disease, unspecified; F02.80 - Dementia in other diseases classified elsewhere without behavioral disturbance Palliative-CN HPI - Data of Consult Patient: new to practice Consult date: 01/17/17 Requesting Physician: Andrey Tyler MD Primary Care Provider: Ricky Gamble MD - Consult Narrative Palliative Care/Comfort Measures: Palliative care Reason for consult: Goals of care, symptom management History of present illness: Ms. Monteiro is a 86 year old female who resides at the [facility]. PMH includes Dementia Alzheimer's, HTN, hypothyroidism. The patient was admitted for AMS and sever constipation. The patient is on day 5 of hospitalization and has some small BMs with the help of enemas, miralax and magnesium citrate. A surgical consult is pending and a case discussionn was had with Dr. Tyler and consideration for a dobhoff tube placement may be warranted. I spoke with the patients daughter Aury [phone]. Arlet reports that at baseline (2 weeks ago) her mother could travel in the car and go out to eat with the use of a walker. She reports that he mother began having mental status changes, weakness, and loss of appetite with a steady decline over 2 weeks ago and was being treated for an UTI. Current cultures are negative. This palliative care consult is for symptom management and goals of care discussion. CC: Andrey Tyler MD Past Med Surg Social Fam HX - Past Medical History Source: old records reviewed, obtained from family Medical history: arthritis, dementia, hyperlipidemia, hypertension, osteoporosis , renal disease, thyroid disease Psychiatric history: no psych history - Past Surgical History Surgical History: carotid endarterectomy (L 04/2004) - Social History Smoking Status: Former smoker Smokeless Tobacco Status: No Alcohol use: none Drug use: none Occupational status: retired Current living situation: [facility] Activity Level: Uses cane/walker Recent Out of Country Travel Within the Last 8 Weeks: No Exposure or Possible Exposure to Illness During Travel: No - Family History Daughter Living Status: Still Living Hx Family Neuromuscular Disorders: Yes (Parkinson Disease) Hx Family Neurologic Disorders: Yes (parkinsons) Sister Hx Family Cardiac Disorders: Yes (hypertension, [place]) Hx Family Cancer: Yes (unspecified) Hx Family GI Disorders: Yes (gallbladder disease unspecified) Hx Family Endocrine Disorder: Yes (diabetes) Hx Family Neuromuscular Disorders: Yes (alzheimers) Son Hx Family Respiratory Disorders: Yes (unspecified) Mother Living Status: Hx Family Cardiac Disorders: Yes (hypertension) Hx Family Cancer: Yes (unspecified) Hx Family Endocrine Disorder: Yes (diabetes) Brother Hx Family Cardiac Disorders: Yes (HTN) Hx Family Cancer: Yes Hx Family Endocrine Disorder: Yes (Diabetes) Medications and Allergies Donepezil [Aricept] 10 mg PO HS 05/06/15 [History] Trospium Chloride 20 mg PO BID 02/29/16 [History] Mirtazapine [Remeron] 15 mg PO HS #30 tablet 03/03/16 [Rx] Atorvastatin Calcium [Lipitor] 80 mg PO HS 01/12/17 [History] Cranberry Fruit Extract [Cranberry] 500 mg PO DAILY 01/12/17 [History] Docusate [Colace] 100 mg PO DAILY 01/12/17 [History] Lacosamide [Vimpat] 50 mg PO BID 01/12/17 [History] Lactulose [Enulose] 10 gm PO DAILY 01/12/17 [History] Levothyroxine [Synthroid] 50 mcg PO 0630 01/12/17 [History] Polyethylene Glycol 3350 [MiraLAX] 17 gm PO DAILY 01/12/17 [History] Polyvinyl Alcohol [Artificial Tears] 2 drop OP Q4H PRN 01/12/17 [History] Tearless Baby Shampoo 1 appl TP AD 01/12/17 [History] 3 Allergy/AdvReac Type Severity Reaction Status Date / Time Pneumococcal Vaccine Allergy Hives Verified 05/09/15 14:21 ROS unobtainable: due to mental status (patient somnolent and to weak to fully engage in interview process) - Constitutional Constitutional ROS PAL: decreased appetite, fatigue - EENT Eyes: requires corrective lenses - Gastrointestinal Gastrointestinal: abdominal pain, constipation - Musculoskeletal Musculoskeletal ROS IM: muscle weakness - Neurological Neurological ROS: behavioral changes, weakness - Psychiatric Psychiatric general PM: confusion Palliative Care-Exam - Constitutional Vitals: Temp Pulse Resp BP Pulse Ox 98.1 F 69 14 125/63 94 01/17/17 10:50 01/17/17 10:50 01/17/17 10:50 01/17/17 10:50 01/17/17 10:50 General appearance: Present: no acute distress - Head Head Exam: Present: atraumatic - Eye Eye exam: Present: PERRL - ENT ENT exam: Present: mucous membranes moist - Respiratory Respiratory exam: Present: decreased breath sounds - Expanded Respiratory Exam Location: decreased breath sounds: Left, Right, Lower - Cardiovascular Cardiovascular exam: Present: RRR, +S1, +S2 - Expanded Cardiovascular Exam Peripheral pulses: 1+: Femoral (L) PM, Femoral (R) PM, Posterior Tibialis (L), Posterior Tibialis (R), 2+: Carotid (L) PM, Carotid (R) PM, Radial (L), Radial ( R), Dorsalis Pedis (L) PM, Dorsalis Pedis (R) PM - GI/Abdominal Exam GI/Abdominal exam: Present: firm, rebound (RLQ tenderness), tenderness - Rectal Rectal exam: Present: tenderness - Extremities Exam Extremities exam: Present: full ROM - Expanded Upper Extremities Exam Forearm wrist exam: Present: full ROM - Neurological Exam Neurological exam: Present: alert - Psychiatric Psychiatric exam: Present: flat affect Additional comments: somnolence Internal Medicine - CN: Reslt - Labs CBC & Chem 7: 01/17/17 04:58 01/17/17 04:58 Labs: Short CBC 01/17/17 Range/Units 04:58 WBC 8.6 (4.3-11.1) K/mcL Hgb 9.4 L (11.5-15.4) g/dL Hct 30.1 L (35.3-44.9) % Plt Count 327 (140-400) K/mcL Neutrophils # 5.2 (1.6-8.9) K/mcL BMP 01/17/17 04:58 Sodium 146 H Potassium 3.5 Chloride 113 H Carbon Dioxide 25 BUN 16 Creatinine 0.96 Glucose 101 H Calcium 8.2 L Consult Discharge Plan - Plan Referrals: Ricky Gamble MD [Primary Care Provider] - Palliative Quality Palliative Quality: Screen for Code Status: Yes, Screen for Goals of Care: Yes, Screen for Pain: Yes, If Pain Regimen Started, Initiate Bowel Regimen: Yes, Screen for Nausea/Vomitting: Yes Code Status: 01/12/17 21:57 Resuscitation Status: Active [RES] Routine Comment: Resuscitation Status: Full Code 01/17/17 13:24 DNR [Resuscitation Status: Active] [RES] Routine Resuscitation Status: [id number] Comment:
--- NOTE | 2017-01-17 14:13 | Event Note ---
Date of Encounter: 01/17/17 Time of Encounter: 13:45 Patient daughter/MAURICIO Jeffers arrived. Discussed possible insertion of Dobhoff to facilitate treatment of constipation. Educated on dobhoff placement and process for care. Verbalized understanding and agree for insertion of tube. Case discussed with Dr. Tyler. Will follow-up in AM.
[2017-01-17] MEDS: [UNRECOGNIZED DRUG - SUPPLY] TP SCH (19:57)
[2017-01-17] MEDS: Mirtazapine 15 MG TABLET PO SCH (20:20)
[2017-01-18 05:06] LABS: Basophils % 0.2 %; Eosinophils # 0.2 K/mcL (0.0-0.6); Eosinophils % 1.8 %; Hematocrit 31.7 % (35.3-44.9); Hemoglobin 9.9 g/dL (11.5-15.4); Immature Granulocytes % 0.4 % (0-4); Lymphocytes # 2.7 K/mcL (0.6-4.6); Lymphocytes % 27.5 %; Mean Corpuscular HGB Conc 31.2 g/dL (31.6-35.5); Mean Corpuscular Hemoglobin 27.5 pg (28.0-33.3); Mean Corpuscular Volume 88.1 fL (83.0-100.0); Mean Platelet Volume 9.3 fL (9.4-12.4); Monocytes # 0.9 K/mcL (0.0-1.3); Monocytes % 9.1 %; Platelet Count 329 K/mcL (140-400); Red Cell Distribution Width 14.1 % (11.5-14.5)
[2017-01-18 05:24] LABS: Calcium 8.4 mg/dL (8.6-10.8); Potassium 3.5 mEq/L (3.5-4.5)
[2017-01-18] MEDS: *HR* Heparin 5,000 UNIT/ML VIAL SQ SCH ×2 (05:54→18:39)
[2017-01-18] MEDS ORDERED: Glycerin RECTAL Suppository RC ONE (09:19)
[2017-01-18] MEDS: Sennosides/Docusate Sodium TABLET PO SCH ×2 (09:58→19:44)
[2017-01-18] MEDS: Lactulose Oral Soln 20 GM/30 ML UDC PO SCH ×2 (09:59→19:44)
[2017-01-18] MEDS: (Cranberry Fruit Extract [Cranberry] 500 MG) PO SCH (09:59)
--- NOTE | 2017-01-18 10:28 | Palliative Progress Note ---
Date of Encounter: 01/18/17 Time of Encounter: 10:00 - Assessment and plan (1) Constipation Current Visit: Yes Status: Acute Assessment and plan: Will be recieving Lactulose/bowel prep/Miralax/Senna - Dobhoff has been placed. No results from enemas thus far. May require manual disimpactions as well. Will monitor Qualifiers: Constipation type: unspecified constipation type Qualified Code(s): K59.00 - Constipation, unspecified (2) Goals of care, counseling/discussion Current Visit: Yes Status: Acute Assessment and plan: Family currently not present, however, was discussed via telephone yesterday. Daughter Aury in agreement with placement of tube and aggressive treatment of constipation. DNR/DNI. Will follow - Time Spent With Patient Total time spent is greater than 50% in coordination of care (as documented) at patient's floor/unit and/or counseling patient: 25 - 35 minutes - Subjective Interval history: Patient lying curled up on right side in bed. Dobhoff has been inserted and placement verified by xray. Nurse in room and will be giving bowel prep. Thus far, only smears of BM. No family present. Patient will not answer questions or follow commands at this time. Did shake her head "yes" for me once, but continued to keep eyes tightly closed. - Constitutional Vitals: Abnormal lab results RBC 3.60 M/mcL (3.82-4.97) L 01/18/17 04:43 Hgb 9.9 g/dL (11.5-15.4) L 01/18/17 04:43 Hct 31.7 % (35.3-44.9) L 01/18/17 04:43 MCH 27.5 pg (28.0-33.3) L 01/18/17 04:43 MCHC 31.2 g/dL (31.6-35.5) L 01/18/17 04:43 MPV 9.3 fL (9.4-12.4) L 01/18/17 04:43 Sodium 147 mEq/L (136-145) H 01/18/17 04:43 Chloride 111 mEq/L (98-109) H 01/18/17 04:43 BUN 21 mg/dL (7-20) H 01/18/17 04:43 Est GFR ( Amer) 58 (> 60) L 01/18/17 04:43 Est GFR (Non-Af Amer) 48 (> 60) L 01/18/17 04:43 Glucose 115 mg/dL (70-99) H 01/18/17 04:43 Calculated Osmolality 308 (280-300) H 01/18/17 04:43 Calcium 8.4 mg/dL (8.6-10.8) L 01/18/17 04:43 Albumin 3.0 g/dL (3.5-5.0) L 01/12/17 17:20 Globulin 4.5 g/dL (2.4-3.5) H 01/12/17 17:20 Albumin/Globulin Ratio 0.7 (1.1-2.2) L 01/12/17 17:20 Urine Clarity Cloudy (Clear) A 01/12/17 18:00 Urine Protein 30 mg/dL (Neg-Trace) H 01/12/17 18:00 Urine Blood Small (Negative) H 01/12/17 18:00 Urine Bilirubin Small (Negative) H 01/12/17 18:00 Urine Microscopic WBC 5-15 per hpf (0-3) H 01/12/17 18:00 Ur Squamous Epith Cells Many per lpf (None-Few) H 01/12/17 18:00 Ur Culture Indicated? YES (NO) A 01/12/17 18:00 General appearance: Present: no acute distress - Respiratory Respiratory exam: Present: decreased breath sounds, CTAB Additional comments: Shallow inspiratory effort - Cardiovascular Cardiovascular exam: Present: +S1, +S2 - GI/Abdominal GI/Abdominal exam: Present: diminished bowel sounds, soft - Extremities Exam Extremities exam: Present: normal capillary refill, normal inspection - Neurological Exam Additional comments: Does not verbalized or follow any commands at this time. - Skin Skin exam: Present: dry, pallor, warm Palliative Quality Palliative Quality: Screen for Code Status: Yes, Screen for Goals of Care: Yes, Screen for Pain: Yes, If Pain Regimen Started, Initiate Bowel Regimen: Yes, Screen for Nausea/Vomitting: Yes Code Status: 01/12/17 21:57 Resuscitation Status: Active [RES] Routine Comment: Resuscitation Status: Full Code 01/17/17 13:24 DNR [Resuscitation Status: Active] [RES] Routine Comment: Resuscitation Status: [id number] - Labs CBC & Chem 7: 01/18/17 04:43 01/18/17 04:43 Labs: Laboratory Results - last 24 hr 01/18/17 01/18/17 04:43 04:43 WBC 9.9 RBC 3.60 L Hgb 9.9 L Hct 31.7 L MCV 88.1 MCH 27.5 L MCHC 31.2 L RDW 14.1 Plt Count 329 MPV 9.3 L Immature Gran % 0.4 Seg Neutrophils % 61.0 Lymphocytes % 27.5 Monocytes % 9.1 Eosinophils % 1.8 Basophils % 0.2 Neutrophils # 6.0 Lymphocytes # 2.7 Monocytes # 0.9 Eosinophils # 0.2 Basophils # 0.0 Sodium 147 H Potassium 3.5 Chloride 111 H Carbon Dioxide 26 BUN 21 H Creatinine 1.09 Est GFR ( Amer) 58 L Est GFR (Non-Af Amer) 48 L BUN/Creatinine Ratio 19 Glucose 115 H Calculated Osmolality 308 H Calcium 8.4 L - Impressions Impressions KUB X-Ray 01/18/17 01:30 IMPRESSION: Feeding tube is in place with tip curling within the stomach. Preferred position of feeding tube tip is beyond the ligament of Treitz, consider advancement as clinically warranted. D/ / Laura Mcguire MD / Laura Mcguire MD Interpreting Provider: Laura Mcguire MD Consult Discharge Plan - Plan Referrals: Ricky Gamble MD [Primary Care Provider] -
[2017-01-18] MEDS: 0.9 % Sodium Chloride 1,000 ML IVC SCH ×2 (13:51→20:39)
--- NOTE | 2017-01-18 15:09 | General Surgery Consult Note ---
<Ofe Rizvi - Last Filed: 01/18/17 15:15> Date of Encounter: 01/18/17 Time of Encounter: 14:30 Assessment and Plan (1) Constipation Current Visit: Yes Status: Acute Attempted x3 to advance -Esvin, but there was resistance. Recommend continue per rectum laxatives and digital disimpaction if needed. No surgical intervention is indicated at this time. If family wants to pursue more aggressive measures, consideration should be given to the safety of such measures as pt is at risk to pulling out tubes. continue BID milk of molasses enemas and attempt to drink bowel prep Surgery will sign off at this time. Please re-consult if need arises. Qualifiers: Constipation type: unspecified constipation type Qualified Code(s): K59.00 - Constipation, unspecified History of Present Illness Consult date: 01/17/17 (Dr. Anam Harris) Requesting physician: Paul Meza History of present illness: Pt is confused. No family is at bedside. Unable to obtain subjective information. Per chart review, Vale is an 86 year old CF who presents with constipation. She has a significant medical history and noteably a history of dementia. There has been multiple unsuccessful attempts administering PO laxatives ( patient refuses), suppositories, and per rectum laxatives without successful result. Family had requested aggressive treatment for constipation including the insertion of a temporary feeding tube. Surgery was asked to evaluate the patient for constipation. -Esvin was attempted but was noted to be at the base of the esophagus. When attempting to advance the -esvin, resistance was met, pt was combative, and we were unable to advance. Past Med Surg Social Fam HX - Past Medical History Medical history: arthritis, dementia, hyperlipidemia, hypertension, osteoporosis , renal disease, thyroid disease Psychiatric history: no psych history - Past Surgical History Surgical History: carotid endarterectomy (L 04/2004) - Social History Smoking Status: Former smoker Smokeless Tobacco Status: No Alcohol use: none Drug use: none - Family History Daughter Living Status: Still Living Hx Family Neuromuscular Disorders: Yes (Parkinson Disease) Hx Family Neurologic Disorders: Yes (parkinsons) Sister Hx Family Cardiac Disorders: Yes (hypertension, DC) Hx Family Cancer: Yes (unspecified) Hx Family GI Disorders: Yes (gallbladder disease unspecified) Hx Family Endocrine Disorder: Yes (diabetes) Hx Family Neuromuscular Disorders: Yes (alzheimers) Son Hx Family Respiratory Disorders: Yes (unspecified) Mother Living Status: Hx Family Cardiac Disorders: Yes (hypertension) Hx Family Cancer: Yes (unspecified) Hx Family Endocrine Disorder: Yes (diabetes) Brother Hx Family Cardiac Disorders: Yes (HTN) Hx Family Cancer: Yes Hx Family Endocrine Disorder: Yes (Diabetes) Medications and Allergies Donepezil [Aricept] 10 mg PO HS 05/06/15 [History] Trospium Chloride 20 mg PO BID 02/29/16 [History] Mirtazapine [Remeron] 15 mg PO HS #30 tablet 03/03/16 [Rx] Atorvastatin Calcium [Lipitor] 80 mg PO HS 01/12/17 [History] Cranberry Fruit Extract [Cranberry] 500 mg PO DAILY 01/12/17 [History] Docusate [Colace] 100 mg PO DAILY 01/12/17 [History] Lacosamide [Vimpat] 50 mg PO BID 01/12/17 [History] Lactulose [Enulose] 10 gm PO DAILY 01/12/17 [History] Levothyroxine [Synthroid] 50 mcg PO 0630 01/12/17 [History] Polyethylene Glycol 3350 [MiraLAX] 17 gm PO DAILY 01/12/17 [History] Polyvinyl Alcohol [Artificial Tears] 2 drop OP Q4H PRN 01/12/17 [History] Tearless Baby Shampoo 1 appl TP AD 01/12/17 [History] 3 Allergy/AdvReac Type Severity Reaction Status Date / Time Pneumococcal Vaccine Allergy Hives Verified 05/09/15 14:21 Review of Systems All systems PM: Unable to obtain. See HPI General Surgery Exam Initial Vital Signs Temp Pulse Resp BP Pulse Ox 98 F 82 18 163/74 98 01/12/17 17:01 01/12/17 17:01 01/12/17 17:01 01/12/17 17:01 01/12/17 17:01 - General physical appearance no distress - ENT atraumatic, normocephalic - Neck trachea midline - Respiratory normal expansion, normal respiratory effort, clear to percussion, clear to auscultation - Cardiovascular Cardiovascular exam: Present: RRR, murmurs - Abdomen Abdomen general surgery: Present: bowel sounds present, soft, tender Hernia: Present: none - Integumentary Integumentary general surgery: Present: warm and dry - Neurologic Present: confused, other - Musculoskeletal Present: normal posture - Psychiatric Psychiatric general surgery: Present: other (Pleasantly confused) Exam Initial Vital Signs Temp Pulse Resp BP Pulse Ox 98 F 82 18 163/74 98 01/12/17 17:01 01/12/17 17:01 01/12/17 17:01 01/12/17 17:01 01/12/17 17:01 Results - Labs 01/18/17 04:43 01/18/17 04:43 Abnormal lab results RBC 3.60 M/mcL (3.82-4.97) L 01/18/17 04:43 Hgb 9.9 g/dL (11.5-15.4) L 01/18/17 04:43 Hct 31.7 % (35.3-44.9) L 01/18/17 04:43 MCH 27.5 pg (28.0-33.3) L 01/18/17 04:43 MCHC 31.2 g/dL (31.6-35.5) L 01/18/17 04:43 MPV 9.3 fL (9.4-12.4) L 01/18/17 04:43 Sodium 147 mEq/L (136-145) H 01/18/17 04:43 Chloride 111 mEq/L (98-109) H 01/18/17 04:43 BUN 21 mg/dL (7-20) H 01/18/17 04:43 Est GFR ( Amer) 58 (> 60) L 01/18/17 04:43 Est GFR (Non-Af Amer) 48 (> 60) L 01/18/17 04:43 Glucose 115 mg/dL (70-99) H 01/18/17 04:43 Calculated Osmolality 308 (280-300) H 01/18/17 04:43 Calcium 8.4 mg/dL (8.6-10.8) L 01/18/17 04:43 Albumin 3.0 g/dL (3.5-5.0) L 01/12/17 17:20 Globulin 4.5 g/dL (2.4-3.5) H 01/12/17 17:20 Albumin/Globulin Ratio 0.7 (1.1-2.2) L 01/12/17 17:20 Urine Clarity Cloudy (Clear) A 01/12/17 18:00 Urine Protein 30 mg/dL (Neg-Trace) H 01/12/17 18:00 Urine Blood Small (Negative) H 01/12/17 18:00 Urine Bilirubin Small (Negative) H 01/12/17 18:00 Urine Microscopic WBC 5-15 per hpf (0-3) H 01/12/17 18:00 Ur Squamous Epith Cells Many per lpf (None-Few) H 01/12/17 18:00 Ur Culture Indicated? YES (NO) A 01/12/17 18:00 Diabetes panel 01/18/17 Range/Units 04:43 Sodium 147 H (136-145) mEq/L Potassium 3.5 (3.5-4.5) mEq/L Chloride 111 H (98-109) mEq/L Carbon Dioxide 26 (19-29) mEq/L BUN 21 H (7-20) mg/dL Creatinine 1.09 (0.57-1.11) mg/dL Glucose 115 H (70-99) mg/dL Calcium 8.4 L (8.6-10.8) mg/dL Calcium panel 01/18/17 Range/Units 04:43 Calcium 8.4 L (8.6-10.8) mg/dL Pituitary panel 01/18/17 Range/Units 04:43 Sodium 147 H (136-145) mEq/L Potassium 3.5 (3.5-4.5) mEq/L Chloride 111 H (98-109) mEq/L Carbon Dioxide 26 (19-29) mEq/L BUN 21 H (7-20) mg/dL Creatinine 1.09 (0.57-1.11) mg/dL Glucose 115 H (70-99) mg/dL Calcium 8.4 L (8.6-10.8) mg/dL Adrenal panel 01/18/17 Range/Units 04:43 Sodium 147 H (136-145) mEq/L Potassium 3.5 (3.5-4.5) mEq/L Chloride 111 H (98-109) mEq/L Carbon Dioxide 26 (19-29) mEq/L BUN 21 H (7-20) mg/dL Creatinine 1.09 (0.57-1.11) mg/dL Glucose 115 H (70-99) mg/dL Calcium 8.4 L (8.6-10.8) mg/dL All other labs normal. - Imaging Additional studies: Abdomen/Pelvis CT 01/12/17 17:08 IMPRESSION: Large amount of stool throughout the colon and especially within the rectum which is prominently distended. Findings concerning for impaction. No findings to suggest small bowel obstruction. Rectal wall is mildly thickened and inflamed and there is mild amount of inflammatory change presacral region. Findings may be reactive. No fluid collection. D/ / Giulia Carrera MD / Giulia Carrera MD Interpreting Provider: Giulia Carrera MD X-Ray 01/18/17 13:32 IMPRESSION: Enteric feeding tube looped in the mid to distal esophagus as above. Tube should be repositioned and advanced prior to use. D/ / Greg Robertson MD / Greg Robertson MD Interpreting Provider: Greg Robertson MD Consult Discharge Plan - Plan Referrals: Ricky Gamble MD [Primary Care Provider] - <Anam Harris - Last Filed: 01/19/17 14:04> Date of Encounter: 01/18/17 Review of Systems All systems PM: A 10-system review of systems was performed and is negative for pertinent findings except as documented above in the HPI. General Surgery Exam Initial Vital Signs Temp Pulse Resp BP Pulse Ox 98 F 82 18 163/74 98 01/12/17 17:01 01/12/17 17:01 01/12/17 17:01 01/12/17 17:01 01/12/17 17:01 Exam Initial Vital Signs Temp Pulse Resp BP Pulse Ox 98 F 82 18 163/74 98 01/12/17 17:01 01/12/17 17:01 01/12/17 17:01 01/12/17 17:01 01/12/17 17:01 Results - Labs 01/19/17 05:24 01/19/17 05:24 Abnormal lab results RBC 3.75 M/mcL (3.82-4.97) L 01/19/17 05:24 Hgb 10.0 g/dL (11.5-15.4) L 01/19/17 05:24 Hct 32.8 % (35.3-44.9) L 01/19/17 05:24 MCH 26.7 pg (28.0-33.3) L 01/19/17 05:24 MCHC 30.5 g/dL (31.6-35.5) L 01/19/17 05:24 MPV 9.2 fL (9.4-12.4) L 01/19/17 05:24 Sodium 146 mEq/L (136-145) H 01/19/17 05:24 Potassium 3.4 mEq/L (3.5-4.5) L 01/19/17 05:24 Chloride 111 mEq/L (98-109) H 01/19/17 05:24 Est GFR (Non-Af Amer) 58 (> 60) L 01/19/17 05:24 Calculated Osmolality 304 (280-300) H 01/19/17 05:24 Calcium 8.2 mg/dL (8.6-10.8) L 01/19/17 05:24 AST 101 Units/L (5-34) H 01/19/17 05:24 ALT 59 Units/L (0-55) H 01/19/17 05:24 Albumin 2.3 g/dL (3.5-5.0) L 01/19/17 05:24 Globulin 3.7 g/dL (2.4-3.5) H 01/19/17 05:24 Albumin/Globulin Ratio 0.6 (1.1-2.2) L 01/19/17 05:24 Urine Clarity Cloudy (Clear) A 01/12/17 18:00 Urine Protein 30 mg/dL (Neg-Trace) H 01/12/17 18:00 Urine Blood Small (Negative) H 01/12/17 18:00 Urine Bilirubin Small (Negative) H 01/12/17 18:00 Urine Microscopic WBC 5-15 per hpf (0-3) H 01/12/17 18:00 Ur Squamous Epith Cells Many per lpf (None-Few) H 01/12/17 18:00 Ur Culture Indicated? YES (NO) A 01/12/17 18:00 Diabetes panel 01/19/17 Range/Units 05:24 Sodium 146 H (136-145) mEq/L Potassium 3.4 L (3.5-4.5) mEq/L Chloride 111 H (98-109) mEq/L Carbon Dioxide 26 (19-29) mEq/L BUN 20 (7-20) mg/dL Creatinine 0.92 (0.57-1.11) mg/dL Glucose 88 (70-99) mg/dL Calcium 8.2 L (8.6-10.8) mg/dL AST 101 H (5-34) Units/L ALT 59 H (0-55) Units/L Alkaline Phosphatase 85 (38-126) Units/L Albumin 2.3 L (3.5-5.0) g/dL Calcium panel 01/19/17 Range/Units 05:24 Calcium 8.2 L (8.6-10.8) mg/dL Albumin 2.3 L (3.5-5.0) g/dL Pituitary panel 01/19/17 Range/Units 05:24 Sodium 146 H (136-145) mEq/L Potassium 3.4 L (3.5-4.5) mEq/L Chloride 111 H (98-109) mEq/L Carbon Dioxide 26 (19-29) mEq/L BUN 20 (7-20) mg/dL Creatinine 0.92 (0.57-1.11) mg/dL Glucose 88 (70-99) mg/dL Calcium 8.2 L (8.6-10.8) mg/dL Adrenal panel 01/19/17 Range/Units 05:24 Sodium 146 H (136-145) mEq/L Potassium 3.4 L (3.5-4.5) mEq/L Chloride 111 H (98-109) mEq/L Carbon Dioxide 26 (19-29) mEq/L BUN 20 (7-20) mg/dL Creatinine 0.92 (0.57-1.11) mg/dL Glucose 88 (70-99) mg/dL Calcium 8.2 L (8.6-10.8) mg/dL Total Bilirubin 0.7 (0.2-1.2) mg/dL AST 101 H (5-34) Units/L ALT 59 H (0-55) Units/L Alkaline Phosphatase 85 (38-126) Units/L Albumin 2.3 L (3.5-5.0) g/dL All other labs normal. - Attending Attestation I have personally performed a face to face evaluation on this patient. I have reviewed and agree with the care plan. History and Exam by me shows: The patient was seen and evaluated on morning rounds with the resident. Abdomen is soft nontender and nondistended. There is no nausea or vomiting. The patient has severe dementia and is unable to respond to questioning. We will plan medical treatment for constipation Anam Harris MD FACS
[2017-01-18] MEDS: Milk and Molasses Enema 200 ML RC SCH ×2 (16:00→19:44)
--- NOTE | 2017-01-18 17:42 | Internal Med Progress Note ---
<Niecy Marsh - Last Filed: 01/18/17 17:51> Date of Encounter: 01/18/17 Time of Encounter: 11:00 - Assessment and plan (1) Constipation Current Visit: Yes Status: Acute Assessment and plan: Patient had a bowel movement two days ago, but in small quantity. She was given magnesium citrate two day ago, but patient has not been very compliant with taking it. A gatorade miralax bowel prep was given as well , but again patient has not been compliant with taking it. Patient is currently not c/o nausea or vomiting. - Dobhoff tube was successfully passed to administer go-lytely. It was confirmed successful by xray;however, it did not pass medication. Surgery has recommended continuation of enemas and per rectum laxatives as well as BID milk of molasses enemas with attempts to drink bowel prep. They have signed off. -Patient has a large stool burden. We will continue with current regimine with attempts at manual disimpaction tomorrow. Qualifiers: Constipation type: unspecified constipation type Qualified Code(s): K59.00 - Constipation, unspecified (2) Alzheimer's dementia Current Visit: No Status: Chronic Assessment and plan: Continue fall precautions, avoid excessive sedation, and continue donepezil. Qualifiers: Alzheimer's disease onset: unspecified onset Dementia behavioral disturbance: without behavioral disturbance Qualified Code(s): G30.9 - Alzheimer's disease, unspecified; F02.80 - Dementia in other diseases classified elsewhere without behavioral disturbance (3) Altered mental status Current Visit: Yes Status: Acute Assessment and plan: Avoid sedatives. Tried to treat patient's constipation. Qualifiers: Altered mental status type: unspecified Qualified Code(s): R41.82 - Altered mental status, unspecified (4) CKD (chronic kidney disease) stage 3, GFR 30-59 ml/min Current Visit: No Status: Chronic Assessment and plan: GFR increased from 42 to 52 since yesterday. Creatinine has stayed at 0.96. - Avoid nephrotoxins. - IVF. - Subjective Interval history: Patient lying in bed curled up on her right side. Dobbhoff was recently inserted with placement verified by x-ray. Nurse was in the room at the time administering the bowel prep. There was no family present at the bedside. Patient had her eyes tightly closed and was in apparent distress. She was not answering questions at the time. - Constitutional Vitals: Temp Pulse Resp BP Pulse Ox 98.0 F 71 16 153/78 97 01/17/17 23:10 01/18/17 07:24 01/18/17 07:24 01/18/17 07:24 01/18/17 09:45 General appearance: Present: cachectic, A&O X 0 (Unable to respond to commands or questioning. ) - Head Head exam: Present: atraumatic, normal inspection - Respiratory Respiratory exam: Present: CTAB - Cardiovascular Cardiovascular exam: Present: RRR. Absent: diastolic murmur, gallop, rubs, systolic murmur - GI/Abdominal GI/Abdominal exam: Present: distended, normal bowel sounds, soft, tenderness. Absent: firm, guarding - Extremities Exam Extremities exam: Present: radial pulses palpable and symmetrical. Absent: calf tenderness, cyanotic, pedal edema Internal Medicine: Result - Labs CBC & Chem 7: 01/18/17 04:43 01/18/17 04:43 Labs: Short CBC 01/18/17 Range/Units 04:43 WBC 9.9 (4.3-11.1) K/mcL Hgb 9.9 L (11.5-15.4) g/dL Hct 31.7 L (35.3-44.9) % Plt Count 329 (140-400) K/mcL Neutrophils # 6.0 (1.6-8.9) K/mcL BMP 01/18/17 04:43 Sodium 147 H Potassium 3.5 Chloride 111 H Carbon Dioxide 26 BUN 21 H Creatinine 1.09 Glucose 115 H Calcium 8.4 L - Impressions Impressions KUB X-Ray 01/18/17 01:30 IMPRESSION: Feeding tube is in place with tip curling within the stomach. Preferred position of feeding tube tip is beyond the ligament of Treitz, consider advancement as clinically warranted. D/ / Laura Mcguire MD / Laura Mcguire MD Interpreting Provider: Laura Mcguire MD X-Ray 01/18/17 13:32 IMPRESSION: Enteric feeding tube looped in the mid to distal esophagus as above. Tube should be repositioned and advanced prior to use. D/ / Greg Robertson MD / Greg Robertson MD Interpreting Provider: Greg Robertson MD Consult Discharge Plan - Plan Referrals: Ricky Gamble MD [Primary Care Provider] - <Andrey Tyler - Last Filed: 01/18/17 19:37> Date of Encounter: 01/18/17 - Assessment and plan (1) Alzheimer's dementia Current Visit: Yes Status: Acute Qualifiers: Alzheimer's disease onset: late-onset Dementia behavioral disturbance: without behavioral disturbance Qualified Code(s): G30.1 - Alzheimer's disease with late onset; F02.80 - Dementia in other diseases classified elsewhere without behavioral disturbance (2) CKD (chronic kidney disease) stage 3, GFR 30-59 ml/min Current Visit: No Status: Chronic (3) UTI (urinary tract infection) Current Visit: Yes Status: Acute Qualifiers: Urinary tract infection type: acute cystitis Hematuria presence: without hematuria Qualified Code(s): N30.00 - Acute cystitis without hematuria (4) Altered mental status Current Visit: Yes Status: Acute Qualifiers: Altered mental status type: unspecified Qualified Code(s): R41.82 - Altered mental status, unspecified - Constitutional Vitals: Temp Pulse Resp BP Pulse Ox 98.8 F 76 16 170/82 94 01/18/17 18:34 01/18/17 18:34 01/18/17 18:34 01/18/17 18:34 01/18/17 18:34 Internal Medicine: Result - Labs CBC & Chem 7: 01/18/17 04:43 01/18/17 04:43 Labs: Short CBC 01/18/17 Range/Units 04:43 WBC 9.9 (4.3-11.1) K/mcL Hgb 9.9 L (11.5-15.4) g/dL Hct 31.7 L (35.3-44.9) % Plt Count 329 (140-400) K/mcL Neutrophils # 6.0 (1.6-8.9) K/mcL BMP 01/18/17 04:43 Sodium 147 H Potassium 3.5 Chloride 111 H Carbon Dioxide 26 BUN 21 H Creatinine 1.09 Glucose 115 H Calcium 8.4 L - Impressions Impressions KUB X-Ray 01/18/17 01:30 IMPRESSION: Feeding tube is in place with tip curling within the stomach. Preferred position of feeding tube tip is beyond the ligament of Treitz, consider advancement as clinically warranted. D/ / Laura Mcguire MD / Laura Mcguire MD Interpreting Provider: Laura Mcguire MD X-Ray 01/18/17 13:32 IMPRESSION: Enteric feeding tube looped in the mid to distal esophagus as above. Tube should be repositioned and advanced prior to use. D/ / Greg Robertson MD / Greg Robertson MD Interpreting Provider: Greg Robertson MD - Attending Attestation I examined this patient and my medical decision-making was reviewed with the Resident Physician, Dr. Marsh. I agree with the documented findings, disposition and treatment plan as described except to the extent set forth below. My findings are summarized below: Patient is awake alert oriented 1. Minimally interactive. Abdomen is soft, nontender, no rebound or guarding. Plan: We have attempted MiraLAX, lactulose, enemas and Dulcolax suppository. We have attempted manual disimpaction several times, including today. We appreciate surgery recommendations. At this point the patient is still suffering from severe rectal impaction and severe constipation. We will consult GI. I discussed the case with Dr. Moseley.
[2017-01-18] MEDS ORDERED: *HR* FentaNYL (PF) 100 MCG/2 ML VIAL IVP ONE (18:44)
[2017-01-18] MEDS ORDERED: *HR* Midazolam HCl 2 MG/2 ML VIAL IVP ONE (18:44)
[2017-01-18] MEDS: Mirtazapine 15 MG TABLET PO SCH (19:44)
[2017-01-18] MEDS: [UNRECOGNIZED DRUG - SUPPLY] TP SCH (19:45)
[2017-01-19 06:03] LABS: Basophils % 0.2 %; Eosinophils # 0.1 K/mcL (0.0-0.6); Eosinophils % 1.6 %; Hematocrit 32.8 % (35.3-44.9); Immature Granulocytes % 0.7 % (0-4); Lymphocytes # 2.5 K/mcL (0.6-4.6); Lymphocytes % 27.9 %; Mean Corpuscular HGB Conc 30.5 g/dL (31.6-35.5); Mean Corpuscular Hemoglobin 26.7 pg (28.0-33.3); Mean Corpuscular Volume 87.5 fL (83.0-100.0); Mean Platelet Volume 9.2 fL (9.4-12.4); Monocytes # 0.8 K/mcL (0.0-1.3); Monocytes % 8.4 %; Neutrophils # 5.5 K/mcL (1.6-8.9); Platelet Count 353 K/mcL (140-400); Red Blood Count 3.75 M/mcL (3.82-4.97); Red Cell Distribution Width 14.1 % (11.5-14.5); Segmented Neutrophils % 61.2 %
[2017-01-19] MEDS: *HR* Heparin 5,000 UNIT/ML VIAL SQ SCH ×2 (06:15→18:17)
[2017-01-19 06:19] LABS: Alanine Aminotransferase 59 Units/L (0-55); Albumin 2.3 g/dL (3.5-5.0); Albumin/Globulin Ratio 0.6 (1.1-2.2); Alkaline Phosphatase 85 Units/L (38-126); Aspartate Amino Transferase 101 Units/L (5-34); BUN/Creatinine Ratio 22 (6-26); Bilirubin,Total 0.7 mg/dL (0.2-1.2); Blood Urea Nitrogen 20 mg/dL (7-20); Calcium 8.2 mg/dL (8.6-10.8); Carbon Dioxide 26 mEq/L (19-29); Chloride 111 mEq/L (98-109); Globulin 3.7 g/dL (2.4-3.5); Glucose 88 mg/dL (70-99); Osmolality,Calculated 304 (280-300); Potassium 3.4 mEq/L (3.5-4.5); Sodium 146 mEq/L (136-145); eGFR For African Americans > 60 (> 60); eGFR For Non-African Americans 58 (> 60)
[2017-01-19] MEDS: 0.9 % Sodium Chloride 1,000 ML IVC SCH (08:45)
[2017-01-19] MEDS: Lactulose Oral Soln 20 GM/30 ML UDC PO SCH ×2 (08:45→20:34)
[2017-01-19] MEDS: (Cranberry Fruit Extract [Cranberry] 500 MG) PO SCH (08:45)
[2017-01-19] MEDS: Sennosides/Docusate Sodium TABLET PO SCH ×2 (08:45→20:35)
[2017-01-19] MEDS: Milk and Molasses Enema 200 ML RC SCH ×2 (09:45→20:35)
--- NOTE | 2017-01-19 11:14 | Gastroenterology Consult Note ---
<Ernie Jean - Last Filed: 01/19/17 11:11> Date of Encounter: 01/19/17 Time of Encounter: 10:30 - Assessment and plan (1) Constipation Status: Acute Assessment and plan: Dobbhoff was unable to be advanced yesterday by surgery. KUB showed the Dobbhoff coiled in the distal esophagus. Patient has refused to drink bowel prep. No success with milk and molasses enemas. Palliative care performed fecal disimpaction today. Recommend therapeutic Hypaque enema. Consider having IR place Dobbhoff. Recommend daily fiber supplement and MiraLAX twice a day when she begins taking PO. Qualifiers: Constipation type: unspecified constipation type Qualified Code(s): K59.00 - Constipation, unspecified (2) Dementia Status: Acute Qualifiers: Dementia type: Alzheimer's disease Alzheimer's disease onset: late-onset Dementia behavioral disturbance: without behavioral disturbance Qualified Code (s): G30.1 - Alzheimer's disease with late onset; F02.80 - Dementia in other diseases classified elsewhere without behavioral disturbance - Time Spent With Patient Total time spent is greater than 50% in coordination of care (as documented) at patient's floor/unit and/or counseling patient: GI History of Present Illness - Data of Consult Patient: new to practice Consult date: 01/19/17 Requesting Physician: Andrey Tyler MD - Consult Narrative History of present illness: Ms. Monteiro is a 86 year old female with PMHx of arthritis, dementia, HLD, HTN, renal disease who was admitted with AMS and constipation. We have been consulted to evaluate her constipation. here has been multiple unsuccessful attempts administering PO laxatives (patient refuses), suppositories, and per rectum laxatives without successful result. Pt nonverbal during my exam, history obtained from chart review, no family at bedside. Family had requested aggressive treatment for constipation including the insertion of a temporary feeding tube. -Esvin was attempted but was noted to be looped in the distal esophagus with tip pointing cranially. Surgery attempted to advance the -esvin , resistance was met, pt was combative, and were unable to advance. EGD 05/30/2013 Dr. Moseley: Normal esophagus, hiatal hernia, normal duodenum. NSAIDs: None Anticoagulation: None Past Med Surg Social Fam HX - Past Medical History Medical history: arthritis, dementia, hyperlipidemia, hypertension, osteoporosis , renal disease, thyroid disease Psychiatric history: no psych history - Past Surgical History Surgical History: carotid endarterectomy (L 04/2004) - Social History Smoking Status: Former smoker Smokeless Tobacco Status: No Alcohol use: none Drug use: none - Family History Daughter Living Status: Still Living Hx Family Neuromuscular Disorders: Yes (Parkinson Disease) Hx Family Neurologic Disorders: Yes (parkinsons) Sister Hx Family Cardiac Disorders: Yes (hypertension, MD) Hx Family Cancer: Yes (unspecified) Hx Family GI Disorders: Yes (gallbladder disease unspecified) Hx Family Endocrine Disorder: Yes (diabetes) Hx Family Neuromuscular Disorders: Yes (alzheimers) Son Hx Family Respiratory Disorders: Yes (unspecified) Mother Living Status: Hx Family Cardiac Disorders: Yes (hypertension) Hx Family Cancer: Yes (unspecified) Hx Family Endocrine Disorder: Yes (diabetes) Brother Hx Family Cardiac Disorders: Yes (HTN) Hx Family Cancer: Yes Hx Family Endocrine Disorder: Yes (Diabetes) ROS unobtainable: due to mental status - Constitutional Vitals: Temp Pulse Resp BP Pulse Ox 97.5 F L 80 16 148/82 93 01/19/17 10:33 01/19/17 10:33 01/19/17 10:33 01/19/17 10:33 01/19/17 10:33 General appearance: Present: no acute distress Exam: Nonverbal - Head Head exam: Present: atraumatic, normocephalic - Eye Eye exam: Present: normal appearance, sclera anicteric - ENT ENT exam: Present: mucous membranes dry - Neck Neck exam general surgery: Present: normal inspection, trachea midline - Respiratory Respiratory exam: Present: decreased breath sounds, CTAB - Cardiovascular Cardiovascular exam: Present: RRR, +S1, +S2 - GI/Abdominal GI/Abdominal exam: Present: soft, tenderness (Patient grimaced when I pressed on her lower abdomen.), no peritoneal signs. Absent: distended, firm, guarding - Rectal Rectal exam: Present: deferred - Extremities Exam Extremities exam: Present: warm - Neurological Exam Neurological exam: Present: altered - Psychiatric Psychiatric exam: Present: normal affect, normal mood - Skin Skin exam: Present: dry, intact, normal color, warm Results - Labs CBC & Chem 7: 01/19/17 05:24 01/19/17 05:24 Labs: Last Result Calcium 8.2 mg/dL (8.6-10.8) L 01/19/17 05:24 Troponin I 0.03 ng/mL (0-0.03) 01/12/17 17:20 Entire Visit Hgb 10.0 g/dL (11.5-15.4) L 01/19/17 05:24 Hct 32.8 % (35.3-44.9) L 01/19/17 05:24 Total Bilirubin 0.7 mg/dL (0.2-1.2) 01/19/17 05:24 AST 101 Units/L (5-34) H 01/19/17 05:24 ALT 59 Units/L (0-55) H 01/19/17 05:24 Amylase 41 Units/L (25-125) 01/12/17 17:20 Lipase 34 Units/L (8-78) 01/12/17 17:20 - Impressions Impressions KUB X-Ray 01/18/17 13:32 IMPRESSION: Enteric feeding tube looped in the mid to distal esophagus as above. Tube should be repositioned and advanced prior to use. D/ / Greg Robertson MD / Greg Robertson MD Interpreting Provider: Greg Robertson MD Consult Discharge Plan - Plan Additional Instructions: Please check for rectal impaction daily and as needed if the patient does not have a bowel movement for 2 days. Please perform rectal disimpaction every other day as needed for constipation. If unsuccessful consider sending the patient to the emergency room for disimpaction. Patient needs assistance with feeding. Maintain good oral hydration. Referrals: Ricky Gamble MD [Primary Care Provider] - <Willis Shepherd - Last Filed: 01/22/17 15:46> Date of Encounter: 01/19/17 - Time Spent With Patient Total time spent is greater than 50% in coordination of care (as documented) at patient's floor/unit and/or counseling patient: GI History of Present Illness - Data of Consult Requesting Physician: Andrey Tyler MD - Consult Narrative History of present illness: Ms. Monteiro is a 86 year old female - Constitutional Vitals: Temp Pulse Resp BP Pulse Ox 97.2 F L 71 18 138/78 96 01/21/17 11:29 01/21/17 11:29 01/21/17 11:29 01/21/17 11:29 01/21/17 11:29 Results - Labs CBC & Chem 7: 01/21/17 04:07 01/21/17 04:07 Labs: Last Result Calcium 8.2 mg/dL (8.6-10.8) L 01/21/17 04:07 Troponin I 0.03 ng/mL (0-0.03) 01/12/17 17:20 Entire Visit Hgb 9.8 g/dL (11.5-15.4) L 01/21/17 04:07 Hct 31.0 % (35.3-44.9) L 01/21/17 04:07 Total Bilirubin 0.7 mg/dL (0.2-1.2) 01/20/17 04:30 AST 97 Units/L (5-34) H 01/20/17 04:30 ALT 63 Units/L (0-55) H 01/20/17 04:30 Amylase 41 Units/L (25-125) 01/12/17 17:20 Lipase 34 Units/L (8-78) 01/12/17 17:20 - Attending Attestation I personally interviewed and examined Ms. Monteiro. Agree with above. Several attempts have been made using enemas including Molasses-milk with no success with BM. Recommend hypaque enema (therapeutic). Discussed with radiology. This will be done today
--- NOTE | 2017-01-19 14:17 | Palliative Progress Note ---
Date of Encounter: 01/19/17 Time of Encounter: 10:30 - Assessment and plan (1) Constipation Current Visit: Yes Status: Acute Assessment and plan: The patient has been severely constipated. Was not able to tolerate having feeding tube placed. It kept Curling up in the esophagus. Enemas have been ineffective. With chaperones present, was able to digitally disimpact a very large amount of very hard stool. I do not believe that enemas would have been of any use until after this disimpaction had been done. It appeared to be much more comfortable after we got her cleaned up after the disimpaction. We will continue with enemas, I have discussed this with the treatment team. Qualifiers: Constipation type: unspecified constipation type Qualified Code(s): K59.00 - Constipation, unspecified (2) Confusion Current Visit: No Status: Acute Assessment and plan: The patient does have a history of dementia, however I believe that this is more delirium and dementia in that there is been a change in mental status. This may very well be related all back to her obstipation. She has now been digitally disimpacted and I believe now the enemas have a chance to work. Continue current plan. (3) Goals of care, counseling/discussion Current Visit: Yes Status: Acute Assessment and plan: Per the medical record family had stated the patient wished to be DNR CCA DNI and this is the current CODE STATUS. I was unable to reach the family today. We will continue to try. - Time Spent With Patient Total time spent is greater than 50% in coordination of care (as documented) at patient's floor/unit and/or counseling patient: - Subjective Interval history: Noted surgeries inability to placed up off, patient still has not had any significant bowel movement only smears family is present she is following commands as she is currently being cleaned up. - Constitutional Vitals: Abnormal lab results RBC 3.75 M/mcL (3.82-4.97) L 01/19/17 05:24 Hgb 10.0 g/dL (11.5-15.4) L 01/19/17 05:24 Hct 32.8 % (35.3-44.9) L 01/19/17 05:24 MCH 26.7 pg (28.0-33.3) L 01/19/17 05:24 MCHC 30.5 g/dL (31.6-35.5) L 01/19/17 05:24 MPV 9.2 fL (9.4-12.4) L 01/19/17 05:24 Sodium 146 mEq/L (136-145) H 01/19/17 05:24 Potassium 3.4 mEq/L (3.5-4.5) L 01/19/17 05:24 Chloride 111 mEq/L (98-109) H 01/19/17 05:24 Est GFR (Non-Af Amer) 58 (> 60) L 01/19/17 05:24 Calculated Osmolality 304 (280-300) H 01/19/17 05:24 Calcium 8.2 mg/dL (8.6-10.8) L 01/19/17 05:24 AST 101 Units/L (5-34) H 01/19/17 05:24 ALT 59 Units/L (0-55) H 01/19/17 05:24 Albumin 2.3 g/dL (3.5-5.0) L 01/19/17 05:24 Globulin 3.7 g/dL (2.4-3.5) H 01/19/17 05:24 Albumin/Globulin Ratio 0.6 (1.1-2.2) L 01/19/17 05:24 Urine Clarity Cloudy (Clear) A 01/12/17 18:00 Urine Protein 30 mg/dL (Neg-Trace) H 01/12/17 18:00 Urine Blood Small (Negative) H 01/12/17 18:00 Urine Bilirubin Small (Negative) H 01/12/17 18:00 Urine Microscopic WBC 5-15 per hpf (0-3) H 01/12/17 18:00 Ur Squamous Epith Cells Many per lpf (None-Few) H 01/12/17 18:00 Ur Culture Indicated? YES (NO) A 01/12/17 18:00 General appearance: Present: no acute distress - Head Head exam: Present: atraumatic, normal inspection - Eye Eye exam: Present: normal appearance - ENT ENT exam: Present: mucous membranes moist - Respiratory Respiratory exam: Present: decreased breath sounds - Cardiovascular Cardiovascular exam: Present: RRR - GI/Abdominal GI/Abdominal exam: Present: normal bowel sounds, soft. Absent: tenderness - Extremities Exam Extremities exam: Present: normal inspection. Absent: pedal edema, tenderness - Neurological Exam Neurological exam: Present: alert, no focal deficits. Absent: oriented X3 - Psychiatric Psychiatric exam: Absent: agitated (Education was only noted during the digital disimpaction.), anxious - Skin Skin exam: Present: dry, warm Palliative Quality Palliative Quality: Screen for Code Status: Yes, Screen for Goals of Care: Yes, Screen for Pain: Yes, If Pain Regimen Started, Initiate Bowel Regimen: Yes, Screen for Nausea/Vomitting: Yes Code Status: 01/12/17 21:57 Resuscitation Status: Active [RES] Routine Comment: Resuscitation Status: Full Code 01/17/17 13:24 DNR [Resuscitation Status: Active] [RES] Routine Comment: Resuscitation Status: [id number] - Labs CBC & Chem 7: 01/19/17 05:24 01/19/17 05:24 Labs: Laboratory Results - last 24 hr 01/19/17 01/19/17 05:24 05:24 WBC 9.0 RBC 3.75 L Hgb 10.0 L Hct 32.8 L MCV 87.5 MCH 26.7 L MCHC 30.5 L RDW 14.1 Plt Count 353 MPV 9.2 L Immature Gran % 0.7 Seg Neutrophils % 61.2 Lymphocytes % 27.9 Monocytes % 8.4 Eosinophils % 1.6 Basophils % 0.2 Neutrophils # 5.5 Lymphocytes # 2.5 Monocytes # 0.8 Eosinophils # 0.1 Basophils # 0.0 Sodium 146 H Potassium 3.4 L Chloride 111 H Carbon Dioxide 26 BUN 20 Creatinine 0.92 Est GFR ( Amer) > 60 Est GFR (Non-Af Amer) 58 L BUN/Creatinine Ratio 22 Glucose 88 Calculated Osmolality 304 H Calcium 8.2 L Total Bilirubin 0.7 AST 101 H ALT 59 H Alkaline Phosphatase 85 Serum Total Protein 6.0 Albumin 2.3 L Globulin 3.7 H Albumin/Globulin Ratio 0.6 L Consult Discharge Plan - Plan Referrals: Ricky Gamble MD [Primary Care Provider] -
--- NOTE | 2017-01-19 16:17 | Internal Med Progress Note ---
<Niecy Marsh - Last Filed: 01/19/17 16:26> Date of Encounter: 01/19/17 Time of Encounter: 11:00 - Assessment and plan (1) Constipation Current Visit: Yes Status: Acute Assessment and plan: Surgery recommended continuation of enemas and per rectum laxatives as well as BID milk of molasses enemas with attempts to drink bowel prep. After signing off , continuing with current laxative regimine, and attempts at manual disimpaction , we consulted GI. They recommended a hypaque therapeutic enema under fluoroscopy. After discussions with radiology and GI, the enema was ordered. Meanwhile, Palliative was able to manually disimpact the patient relieving her of a very large stool burden. Per the nurse, they were able to retrieve multiple chucks worth of stool, and they believed they have relieved all of the hardened stool. They are recommending to continue with enemas and bowel regminie to help Ms. Monteiro to continue to empty her backed-up bowel. As the hardened stool has been removed, we cancelled the hypaque enema for now, and will continue to monitor her evacuation efforts. Qualifiers: Constipation type: unspecified constipation type Qualified Code(s): K59.00 - Constipation, unspecified (2) Alzheimer's dementia Current Visit: No Status: Chronic Assessment and plan: Continue fall precautions, avoid excessive sedation, and continue donepezil. Qualifiers: Alzheimer's disease onset: unspecified onset Dementia behavioral disturbance: without behavioral disturbance Qualified Code(s): G30.9 - Alzheimer's disease, unspecified; F02.80 - Dementia in other diseases classified elsewhere without behavioral disturbance (3) Altered mental status Current Visit: Yes Status: Acute Assessment and plan: Avoid sedatives. Continue to treat patient's constipation. Qualifiers: Altered mental status type: unspecified Qualified Code(s): R41.82 - Altered mental status, unspecified (4) CKD (chronic kidney disease) stage 3, GFR 30-59 ml/min Current Visit: No Status: Chronic Assessment and plan: GFR increased from 42 to 52 since yesterday. Creatinine has stayed at 0.96. - Avoid nephrotoxins. - IVF. - Subjective Interval history: Ms. Monteiro is a 86 year old female with PMHx of arthritis, dementia, HLD, HTN, renal disease who was admitted with AMS and constipation. Patient has been evaluated by surgery for severe constipation that has been refractory to mulitple treatment modalities in the hospital including PO laxatives, suppositories, and enemas. Patient has been non-verbal throughout her stay and in apparent distress. Surgery was unable to advance -esvin tube, thus signed off on the patient. GI was consulted and recommended a hypaque therapeutic enema. Palliative was able to manually disimpact a very large amount of stool this morning. Patient is resting comfortably upon my visit. - Constitutional Vitals: Temp Pulse Resp BP Pulse Ox 97.5 F L 80 16 148/82 93 01/19/17 10:33 01/19/17 10:33 01/19/17 10:33 01/19/17 10:33 01/19/17 10:33 General appearance: Present: cachectic, A&O X 0 (Unable to respond to commands or questioning. ) - Respiratory Respiratory exam: Present: CTAB. Absent: rales, respiratory distress, rhonchi, stridor, wheezes - Cardiovascular Cardiovascular exam: Present: RRR. Absent: diastolic murmur, systolic murmur - GI/Abdominal GI/Abdominal exam: Present: soft. Absent: distended, firm, guarding, tenderness - Extremities Exam Extremities exam: Present: radial pulses palpable and symmetrical. Absent: calf tenderness, pedal edema, tenderness Internal Medicine: Result - Labs CBC & Chem 7: 01/19/17 05:24 01/19/17 05:24 Labs: Short CBC 01/19/17 Range/Units 05:24 WBC 9.0 (4.3-11.1) K/mcL Hgb 10.0 L (11.5-15.4) g/dL Hct 32.8 L (35.3-44.9) % Plt Count 353 (140-400) K/mcL Neutrophils # 5.5 (1.6-8.9) K/mcL BMP 01/19/17 05:24 Sodium 146 H Potassium 3.4 L Chloride 111 H Carbon Dioxide 26 BUN 20 Creatinine 0.92 Glucose 88 Calcium 8.2 L Liver Function 01/19/17 Range/Units 05:24 Total Bilirubin 0.7 (0.2-1.2) mg/dL AST 101 H (5-34) Units/L ALT 59 H (0-55) Units/L Alkaline Phosphatase 85 (38-126) Units/L Albumin 2.3 L (3.5-5.0) g/dL Consult Discharge Plan - Plan Referrals: Ricky Gamble MD [Primary Care Provider] - <Andrey Tyler - Last Filed: 01/20/17 08:14> Date of Encounter: 01/19/17 - Assessment and plan (1) Alzheimer's dementia Current Visit: Yes Status: Acute Qualifiers: Alzheimer's disease onset: late-onset Dementia behavioral disturbance: without behavioral disturbance Qualified Code(s): G30.1 - Alzheimer's disease with late onset; F02.80 - Dementia in other diseases classified elsewhere without behavioral disturbance (2) CKD (chronic kidney disease) stage 3, GFR 30-59 ml/min Current Visit: No Status: Chronic (3) UTI (urinary tract infection) Current Visit: Yes Status: Acute Qualifiers: Urinary tract infection type: acute cystitis Hematuria presence: without hematuria Qualified Code(s): N30.00 - Acute cystitis without hematuria (4) Altered mental status Current Visit: Yes Status: Acute Qualifiers: Altered mental status type: unspecified Qualified Code(s): R41.82 - Altered mental status, unspecified - Constitutional Vitals: Temp Pulse Resp BP Pulse Ox 97.7 F 67 15 129/72 96 01/20/17 07:33 01/20/17 07:33 01/20/17 07:33 01/20/17 07:33 01/20/17 07:33 Internal Medicine: Result - Labs CBC & Chem 7: 01/20/17 04:30 01/20/17 04:30 Labs: Short CBC 01/20/17 Range/Units 04:30 WBC 9.4 (4.3-11.1) K/mcL Hgb 10.3 L (11.5-15.4) g/dL Hct 34.4 L (35.3-44.9) % Plt Count 367 (140-400) K/mcL Neutrophils # 5.6 (1.6-8.9) K/mcL BMP 01/20/17 04:30 Sodium 146 H Potassium 3.4 L Chloride 112 H Carbon Dioxide 25 BUN 23 H Creatinine 0.97 Glucose 104 H Calcium 8.2 L Liver Function 01/20/17 Range/Units 04:30 Total Bilirubin 0.7 (0.2-1.2) mg/dL AST 97 H (5-34) Units/L ALT 63 H (0-55) Units/L Alkaline Phosphatase 87 (38-126) Units/L Albumin 2.3 L (3.5-5.0) g/dL - Impressions Impressions Barium Enema 01/19/17 00:00 IMPRESSION: Unsuccessful therapeutic Hypaque enema for reasons described above. D/ / 01/19/2017 17:18:28 Paul Phelps MD / oswaldo Interpreting Provider: Paul Phelps MD - Attending Attestation I examined this patient and my medical decision-making was reviewed with the Resident Physician, Dr. Marsh. I agree with the documented findings, disposition and treatment plan as described except to the extent set forth below. I have independently obtained history and examined the patient and my findings are summarized below: Patient is asleep, arousable, minimally verbal. She cannot provide history due to advanced dementia. Abdomen is soft mildly distended, nontender. Plan: Rectal disimpaction today. Continue enemas after disimpaction. Restart oral bowel prep. I discussed the case with palliative care. They recommend continued bowel regimen.
[2017-01-19] MEDS ORDERED: Polyethylene Glycol 3350 255 GM POWDER PO ONE (19:23)
[2017-01-19] MEDS: Mirtazapine 15 MG TABLET PO SCH (20:34)
[2017-01-20] MEDS: [UNRECOGNIZED DRUG - SUPPLY] TP SCH ×2 (01:28→21:09)
[2017-01-20 05:25] LABS: Basophils % 0.2 %; Eosinophils # 0.2 K/mcL (0.0-0.6); Eosinophils % 1.7 %; Hematocrit 34.4 % (35.3-44.9); Hemoglobin 10.3 g/dL (11.5-15.4); Immature Granulocytes % 0.6 % (0-4); Lymphocytes # 2.8 K/mcL (0.6-4.6); Lymphocytes % 29.9 %; Mean Corpuscular HGB Conc 29.9 g/dL (31.6-35.5); Mean Corpuscular Hemoglobin 26.5 pg (28.0-33.3); Mean Corpuscular Volume 88.7 fL (83.0-100.0); Mean Platelet Volume 9.8 fL (9.4-12.4); Monocytes # 0.8 K/mcL (0.0-1.3); Monocytes % 8.1 %; Neutrophils # 5.6 K/mcL (1.6-8.9); Platelet Count 367 K/mcL (140-400); Red Blood Count 3.88 M/mcL (3.82-4.97); Red Cell Distribution Width 14.3 % (11.5-14.5); Segmented Neutrophils % 59.5 %
[2017-01-20 05:41] LABS: Alanine Aminotransferase 63 Units/L (0-55); Albumin 2.3 g/dL (3.5-5.0); Albumin/Globulin Ratio 0.6 (1.1-2.2); Alkaline Phosphatase 87 Units/L (38-126); Aspartate Amino Transferase 97 Units/L (5-34); BUN/Creatinine Ratio 24 (6-26); Bilirubin,Total 0.7 mg/dL (0.2-1.2); Blood Urea Nitrogen 23 mg/dL (7-20); Calcium 8.2 mg/dL (8.6-10.8); Carbon Dioxide 25 mEq/L (19-29); Chloride 112 mEq/L (98-109); Globulin 3.7 g/dL (2.4-3.5); Glucose 104 mg/dL (70-99); Osmolality,Calculated 306 (280-300); Potassium 3.4 mEq/L (3.5-4.5); Sodium 146 mEq/L (136-145); eGFR For African Americans > 60 (> 60); eGFR For Non-African Americans 55 (> 60)
[2017-01-20] MEDS: *HR* Heparin 5,000 UNIT/ML VIAL SQ SCH ×2 (06:06→17:52)
[2017-01-20] MEDS: Sennosides/Docusate Sodium TABLET PO SCH ×2 (08:43→20:13)
[2017-01-20] MEDS: Lactulose Oral Soln 20 GM/30 ML UDC PO SCH ×2 (08:43→20:13)
[2017-01-20] MEDS: (Cranberry Fruit Extract [Cranberry] 500 MG) PO SCH (08:46)
[2017-01-20] MEDS: Milk and Molasses Enema 200 ML RC SCH (08:46)
[2017-01-20] MEDS ORDERED: Desitin (Zinc Oxide) 56 GM TUBE TP PRN (09:14)
--- NOTE | 2017-01-20 09:19 | Palliative Progress Note ---
Date of Encounter: 01/20/17 Time of Encounter: 08:40 - Assessment and plan (1) Constipation Current Visit: Yes Status: Acute Assessment and plan: The patient has been now having regular bowel movements. I believe that the bowel regimens will now be effective. When she is cleaned out they can be stopped Qualifiers: Constipation type: unspecified constipation type Qualified Code(s): K59.00 - Constipation, unspecified (2) Confusion Current Visit: No Status: Acute Assessment and plan: The patient does have a history of dementia, continue to watch to see if this clears up now but she is not so constipated. (3) Goals of care, counseling/discussion Current Visit: Yes Status: Acute Assessment and plan: Per the medical record family had stated the patient wished to be DNR CCA DNI and this is the current CODE STATUS. I will try to reach family again today and was unable to do so yesterday. - Time Spent With Patient Total time spent is greater than 50% in coordination of care (as documented) at patient's floor/unit and/or counseling patient: - Subjective Interval history: Noted multiple bm's yesterday. Pt requires assistance with eating but appears to be taking meds ok. some skin irritation noted on her biuttocks by nursing - Constitutional Vitals: Abnormal lab results Hgb 10.3 g/dL (11.5-15.4) L 01/20/17 04:30 Hct 34.4 % (35.3-44.9) L 01/20/17 04:30 MCH 26.5 pg (28.0-33.3) L 01/20/17 04:30 MCHC 29.9 g/dL (31.6-35.5) L 01/20/17 04:30 Sodium 146 mEq/L (136-145) H 01/20/17 04:30 Potassium 3.4 mEq/L (3.5-4.5) L 01/20/17 04:30 Chloride 112 mEq/L (98-109) H 01/20/17 04:30 BUN 23 mg/dL (7-20) H 01/20/17 04:30 Est GFR (Non-Af Amer) 55 (> 60) L 01/20/17 04:30 Glucose 104 mg/dL (70-99) H 01/20/17 04:30 Calculated Osmolality 306 (280-300) H 01/20/17 04:30 Calcium 8.2 mg/dL (8.6-10.8) L 01/20/17 04:30 AST 97 Units/L (5-34) H 01/20/17 04:30 ALT 63 Units/L (0-55) H 01/20/17 04:30 Albumin 2.3 g/dL (3.5-5.0) L 01/20/17 04:30 Globulin 3.7 g/dL (2.4-3.5) H 01/20/17 04:30 Albumin/Globulin Ratio 0.6 (1.1-2.2) L 01/20/17 04:30 Urine Clarity Cloudy (Clear) A 01/12/17 18:00 Urine Protein 30 mg/dL (Neg-Trace) H 01/12/17 18:00 Urine Blood Small (Negative) H 01/12/17 18:00 Urine Bilirubin Small (Negative) H 01/12/17 18:00 Urine Microscopic WBC 5-15 per hpf (0-3) H 01/12/17 18:00 Ur Squamous Epith Cells Many per lpf (None-Few) H 01/12/17 18:00 Ur Culture Indicated? YES (NO) A 01/12/17 18:00 General appearance: Present: no acute distress - Head Head exam: Present: atraumatic, normal inspection - Eye Eye exam: Present: normal appearance - ENT ENT exam: Present: mucous membranes moist - Respiratory Respiratory exam: Present: CTAB - Cardiovascular Cardiovascular exam: Present: RRR - GI/Abdominal GI/Abdominal exam: Present: normal bowel sounds, soft. Absent: tenderness - Extremities Exam Extremities exam: Present: normal inspection. Absent: tenderness - Neurological Exam Neurological exam: Present: alert (Wakens easily) - Psychiatric Psychiatric exam: Absent: agitated, anxious - Skin Skin exam: Present: dry, rash (Not really a rash, there is an area of irritation noted by nursing staff on the buttocks.), warm Palliative Quality Palliative Quality: Screen for Code Status: Yes, Screen for Goals of Care: Yes, Screen for Pain: Yes, If Pain Regimen Started, Initiate Bowel Regimen: Yes, Screen for Nausea/Vomitting: Yes Code Status: 01/12/17 21:57 Resuscitation Status: Active [RES] Routine Comment: Resuscitation Status: Full Code 01/17/17 13:24 DNR [Resuscitation Status: Active] [RES] Routine Comment: Resuscitation Status: [id number] - Labs CBC & Chem 7: 01/20/17 04:30 01/20/17 04:30 Labs: Laboratory Results - last 24 hr 01/20/17 01/20/17 04:30 04:30 WBC 9.4 RBC 3.88 Hgb 10.3 L Hct 34.4 L MCV 88.7 MCH 26.5 L MCHC 29.9 L RDW 14.3 Plt Count 367 MPV 9.8 Immature Gran % 0.6 Seg Neutrophils % 59.5 Lymphocytes % 29.9 Monocytes % 8.1 Eosinophils % 1.7 Basophils % 0.2 Neutrophils # 5.6 Lymphocytes # 2.8 Monocytes # 0.8 Eosinophils # 0.2 Basophils # 0.0 Sodium 146 H Potassium 3.4 L Chloride 112 H Carbon Dioxide 25 BUN 23 H Creatinine 0.97 Est GFR ( Amer) > 60 Est GFR (Non-Af Amer) 55 L BUN/Creatinine Ratio 24 Glucose 104 H Calculated Osmolality 306 H Calcium 8.2 L Total Bilirubin 0.7 AST 97 H ALT 63 H Alkaline Phosphatase 87 Serum Total Protein 6.0 Albumin 2.3 L Globulin 3.7 H Albumin/Globulin Ratio 0.6 L - Impressions Impressions Barium Enema 01/19/17 00:00 IMPRESSION: Unsuccessful therapeutic Hypaque enema for reasons described above. D/ / 01/19/2017 17:18:28 Paul Phelps MD / oswaldo Interpreting Provider: Paul Phelps MD Consult Discharge Plan - Plan Referrals: Ricky Gamble MD [Primary Care Provider] -
--- NOTE | 2017-01-20 15:28 | Internal Med Progress Note ---
<Niecy Marsh H - Last Filed: 01/20/17 15:33> Date of Encounter: 01/20/17 Time of Encounter: 11:00 - Assessment and plan (1) Constipation Current Visit: Yes Status: Acute Assessment and plan: Palliative was able to manually disimpact the patient yesterday relieving her of a very large stool burden. Per the nurse, they were able to retrieve multiple chucks worth of stool, and they believed they have relieved all of the hardened stool. Patient has been having many bowel movements since this disimpaction. She is resting comfortably. We will give her 1/2 NS fluids and discharge tomorrow. Palliative has been in contact with patient's family. Qualifiers: Constipation type: unspecified constipation type Qualified Code(s): K59.00 - Constipation, unspecified (2) Alzheimer's dementia Current Visit: No Status: Chronic Assessment and plan: Continue fall precautions, avoid excessive sedation, and continue donepezil. Patient alert. Qualifiers: Alzheimer's disease onset: unspecified onset Dementia behavioral disturbance: without behavioral disturbance Qualified Code(s): G30.9 - Alzheimer's disease, unspecified; F02.80 - Dementia in other diseases classified elsewhere without behavioral disturbance (3) Altered mental status Current Visit: Yes Status: Acute Assessment and plan: Avoid sedatives. Continue to treat patient's constipation. Patient more alert since resolution of constipation. Qualifiers: Altered mental status type: unspecified Qualified Code(s): R41.82 - Altered mental status, unspecified (4) CKD (chronic kidney disease) stage 3, GFR 30-59 ml/min Current Visit: No Status: Chronic Assessment and plan: GFR increased from 42 to 52 since yesterday. Creatinine has stayed at 0.96. - Avoid nephrotoxins. - IVF. - Subjective Interval history: Ms. Monteiro is a 86 year old female with PMHx of arthritis, dementia, HLD, HTN, renal disease who was admitted with AMS and constipation. Patient has been evaluated by surgery for severe constipation that has been refractory to mulitple treatment modalities in the hospital including PO laxatives, suppositories, and enemas. Patient has been non-verbal throughout her stay and was in apparent distress. Surgery was unable to advance -esvin tube, thus signed off on the patient. GI was consulted and recommended a hypaque therapeutic enema. Palliative was able to manually disimpact a very large amount of stool yesterday. Patient has been having bowel movements on her own ever since. Per nursing, she has been filling multiple diapers. She was noted to have a dry rash on her bottom. Patient is alert, but her mental status is unchanged from yesterday. She does appear to be much more comfortable today. - Constitutional Vitals: Temp Pulse Resp BP Pulse Ox 97.9 F 68 16 175/83 95 01/20/17 11:01/20/17 11:01/20/17 11:01/20/17 11:01/20/17 11:26 General appearance: Present: cachectic, A&O X 1 - Head Head exam: Present: atraumatic, normocephalic (adentulous) - Respiratory Respiratory exam: Present: CTAB. Absent: rhonchi, stridor, wheezes - Cardiovascular Cardiovascular exam: Present: RRR. Absent: diastolic murmur, systolic murmur - GI/Abdominal GI/Abdominal exam: Present: soft. Absent: distended, firm, guarding, tenderness Internal Medicine: Result - Labs CBC & Chem 7: 01/20/17 04:30 01/20/17 04:30 Labs: Short CBC 01/20/17 Range/Units 04:30 WBC 9.4 (4.3-11.1) K/mcL Hgb 10.3 L (11.5-15.4) g/dL Hct 34.4 L (35.3-44.9) % Plt Count 367 (140-400) K/mcL Neutrophils # 5.6 (1.6-8.9) K/mcL BMP 01/20/17 04:30 Sodium 146 H Potassium 3.4 L Chloride 112 H Carbon Dioxide 25 BUN 23 H Creatinine 0.97 Glucose 104 H Calcium 8.2 L Liver Function 01/20/17 Range/Units 04:30 Total Bilirubin 0.7 (0.2-1.2) mg/dL AST 97 H (5-34) Units/L ALT 63 H (0-55) Units/L Alkaline Phosphatase 87 (38-126) Units/L Albumin 2.3 L (3.5-5.0) g/dL - Impressions Impressions Barium Enema 01/19/17 00:00 IMPRESSION: Unsuccessful therapeutic Hypaque enema for reasons described above. D/ / 01/19/2017 17:18:28 Paul Phelps MD / oswaldo Interpreting Provider: Paul Phelps MD Consult Discharge Plan - Plan Referrals: Ricky Gamble MD [Primary Care Provider] - <Andrey Tyler - Last Filed: 01/20/17 18:04> Date of Encounter: 01/20/17 - Assessment and plan (1) Alzheimer's dementia Current Visit: Yes Status: Acute Qualifiers: Alzheimer's disease onset: late-onset Dementia behavioral disturbance: without behavioral disturbance Qualified Code(s): G30.1 - Alzheimer's disease with late onset; F02.80 - Dementia in other diseases classified elsewhere without behavioral disturbance (2) CKD (chronic kidney disease) stage 3, GFR 30-59 ml/min Current Visit: No Status: Chronic (3) UTI (urinary tract infection) Current Visit: Yes Status: Acute Qualifiers: Urinary tract infection type: acute cystitis Hematuria presence: without hematuria Qualified Code(s): N30.00 - Acute cystitis without hematuria (4) Altered mental status Current Visit: Yes Status: Acute Qualifiers: Altered mental status type: unspecified Qualified Code(s): R41.82 - Altered mental status, unspecified - Constitutional Vitals: Temp Pulse Resp BP Pulse Ox 97.4 F L 75 15 151/67 96 01/20/17 16:00 01/20/17 16:00 01/20/17 16:00 01/20/17 16:00 01/20/17 16:00 Internal Medicine: Result - Labs CBC & Chem 7: 01/20/17 04:30 01/20/17 04:30 Labs: Short CBC 01/20/17 Range/Units 04:30 WBC 9.4 (4.3-11.1) K/mcL Hgb 10.3 L (11.5-15.4) g/dL Hct 34.4 L (35.3-44.9) % Plt Count 367 (140-400) K/mcL Neutrophils # 5.6 (1.6-8.9) K/mcL BMP 01/20/17 04:30 Sodium 146 H Potassium 3.4 L Chloride 112 H Carbon Dioxide 25 BUN 23 H Creatinine 0.97 Glucose 104 H Calcium 8.2 L Liver Function 01/20/17 Range/Units 04:30 Total Bilirubin 0.7 (0.2-1.2) mg/dL AST 97 H (5-34) Units/L ALT 63 H (0-55) Units/L Alkaline Phosphatase 87 (38-126) Units/L Albumin 2.3 L (3.5-5.0) g/dL - Impressions Impressions Barium Enema 01/19/17 00:00 IMPRESSION: Unsuccessful therapeutic Hypaque enema for reasons described above. D/ / 01/19/2017 17:18:28 Paul Phelps MD / oswaldo Interpreting Provider: Paul Phelps MD - Attending Attestation I examined this patient and my medical decision-making was reviewed with the Resident Physician, Dr. Marsh. I agree with the documented findings, disposition and treatment plan as described except to the extent set forth below. I have examined the patient and my findings are summarized below: I cannot obtain any history from the patient in 2 to advanced dementia. She is asleep, arousable, minimally verbal. Abdomen is soft and nontender to palpation. Plan: Continue bowel regimen. She is becoming hypernatremic and BUN is trending up suggesting dehydration. I will start half-normal saline and we will recheck labs tomorrow.
[2017-01-20] MEDS: Mirtazapine 15 MG TABLET PO SCH (20:13)
[2017-01-21 05:00] LABS: Basophils % 0.2 %; Eosinophils % 0.3 %; Hemoglobin 9.8 g/dL (11.5-15.4); Immature Granulocytes % 0.4 % (0-4); Lymphocytes # 2.4 K/mcL (0.6-4.6); Mean Corpuscular HGB Conc 31.6 g/dL (31.6-35.5); Mean Corpuscular Hemoglobin 27.7 pg (28.0-33.3); Mean Corpuscular Volume 87.6 fL (83.0-100.0); Mean Platelet Volume 9.8 fL (9.4-12.4); Monocytes # 0.7 K/mcL (0.0-1.3); Monocytes % 7.3 %; Neutrophils # 6.7 K/mcL (1.6-8.9); Platelet Count 350 K/mcL (140-400); Red Blood Count 3.54 M/mcL (3.82-4.97); Red Cell Distribution Width 14.6 % (11.5-14.5); Segmented Neutrophils % 67.8 %
[2017-01-21 05:27] LABS: BUN/Creatinine Ratio 22 (6-26); Blood Urea Nitrogen 21 mg/dL (7-20); Calcium 8.2 mg/dL (8.6-10.8); Carbon Dioxide 22 mEq/L (19-29); Chloride 112 mEq/L (98-109); Glucose 118 mg/dL (70-99); Osmolality,Calculated 300 (280-300); Potassium 3.5 mEq/L (3.5-4.5); Sodium 143 mEq/L (136-145); eGFR For African Americans > 60 (> 60); eGFR For Non-African Americans 55 (> 60)
[2017-01-21] MEDS: *HR* Heparin 5,000 UNIT/ML VIAL SQ SCH (05:38)
[2017-01-21] MEDS: Sennosides/Docusate Sodium TABLET PO SCH (08:23)
[2017-01-21] MEDS: Lactulose Oral Soln 20 GM/30 ML UDC PO SCH (08:23)
[2017-01-21] MEDS: (Cranberry Fruit Extract [Cranberry] 500 MG) PO SCH (08:23)
[2017-01-21] MEDS ORDERED: Milk and Molasses Enema 200 ML RC ONE (09:20)
--- NOTE | 2017-01-21 09:50 | Discharge Summary ---
Date of Encounter: 01/21/17 Time of Encounter: 09:46 - Discharge Diagnosis (1) Alzheimer's dementia Priority: Secondary Status: Acute Qualifiers: Alzheimer's disease onset: late-onset Dementia behavioral disturbance: without behavioral disturbance Qualified Code(s): G30.1 - Alzheimer's disease with late onset; F02.80 - Dementia in other diseases classified elsewhere without behavioral disturbance (2) CKD (chronic kidney disease) stage 3, GFR 30-59 ml/min Priority: Secondary Status: Chronic (3) Altered mental status Priority: Secondary Status: Acute Qualifiers: Altered mental status type: unspecified Qualified Code(s): R41.82 - Altered mental status, unspecified (4) Acute kidney injury superimposed on chronic kidney disease Priority: Primary Status: Acute (5) Constipation Priority: Secondary Status: Acute Qualifiers: Constipation type: unspecified constipation type Qualified Code(s): K59.00 - Constipation, unspecified - Discharge Medications Home Medications: Donepezil [Aricept] 10 mg PO HS 05/06/15 [History] Trospium Chloride 20 mg PO BID 02/29/16 [History] Mirtazapine [Remeron] 15 mg PO HS #30 tablet 03/03/16 [Rx] Atorvastatin Calcium [Lipitor] 80 mg PO HS 01/12/17 [History] Cranberry Fruit Extract [Cranberry] 500 mg PO DAILY 01/12/17 [History] Docusate [Colace] 100 mg PO DAILY 01/12/17 [History] Lacosamide [Vimpat] 50 mg PO BID 01/12/17 [History] Lactulose [Enulose] 10 gm PO DAILY 01/12/17 [History] Levothyroxine [Synthroid] 50 mcg PO 0630 01/12/17 [History] Polyethylene Glycol 3350 [MiraLAX] 17 gm PO DAILY 01/12/17 [History] Polyvinyl Alcohol [Artificial Tears] 2 drop OP Q4H PRN 01/12/17 [History] Tearless Baby Shampoo 1 appl TP AD 01/12/17 [History] Sennosides/Docusate Sodium [Senna Plus] 2 each PO DAILY tablet 01/21/17 [Rx] Allergies/Adverse Reactions: 3 Allergy/AdvReac Type Severity Reaction Status Date / Time Pneumococcal Vaccine Allergy Hives Verified 05/09/15 14:21 Date of admission: 01/12/17 20:12 Primary care physician: Ricky Gamble MD Consults: 01/13/17 15:10 Consult to [facility] [CONS] Routine Reason for SW Consult: Confirm bed hold with [facility] 01/14/17 11:24 dietary consult [Consult to Nutrition] [CONS] Routine Comment: Consulting Provider: NUTRITION Reason for Dietary Consult: PO Supplementation 01/16/17 10:20 Consult to Surgery [CONS] Routine Consulting Provider: [facility] Reason for Consult: Fecal impaction Call Completed: Yes 01/17/17 12:33 Consult to Palliative Care [CONS] Routine Comment: Consulting Provider: Palliative Care [place] Reason for Consult: Altered mental status Time Notified: 12:30 Call Completed: Yes - Patient Status Disposition: Transfer SNF Condition: Fair Functional capacity at discharge: uses cane/walker Overall status at discharge: patient is progressing back to baseline - Discharge Instructions Follow Up With: Ricky Gamble MD [Primary Care Provider] - Additional Instructions: Please check for rectal impaction daily and as needed if the patient does not have a bowel movement for 2 days. Please perform rectal disimpaction every other day as needed for constipation. If unsuccessful consider sending the patient to the emergency room for disimpaction. Patient needs assistance with feeding. Maintain good oral hydration. - Diet and Activity Activity: as per physical therapy (nstructions the) Diet: regular diet Hospital course: Ms. Monteiro is a 86 year old longterm resident with PMH of Alzheimer dementia, hypertension, hld, hypothyroidism who is sent from the [place] for worsening mental status. She was found to have an abnormal urinalysis. Her BUN and creatinine were elevated. She was diagnosed initially with UTI, dehydration and acute kidney injury with a creatinine of 1.59 from baseline of 0.96. She was treated with IV fluids and IV antibiotics. Her mental status improved slightly. Urine culture was negative and therefore UTI was ruled out. Antibiotics were stopped. She had a CT of the abdomen and pelvis which showed large amount of stool throughout the colon and especially within the rectum which is prominently distended. She was diagnosed with fecal impaction. She was started on an aggressive bowel regimen. She had multiple disimpactions throughout this hospitalization including this morning. Palliative care was consulted and, status post changed to DNR [facility] DNI. Her creatinine is now back to baseline, mental status has slightly improved. She will be discharged back to the longterm. - Time Spent with Patient Total time spent providing and/or coordinating discharge services: Greater than 30 minutes (I have spent 40 minutes coordinating this discharge) - Constitutional Vitals: Temp Pulse Resp BP Pulse Ox 98.2 F 81 20 170/71 94 01/21/17 07:34 01/21/17 07:34 01/21/17 07:34 01/21/17 07:34 01/21/17 07:34 General appearance: Present: cachectic, A&O X 1 - Cardiovascular Cardiovascular exam: Present: RRR, +S1, +S2. Absent: diastolic murmur, gallop, rubs, systolic murmur - GI/Abdominal GI/Abdominal exam: Present: normal bowel sounds, soft, no peritoneal signs. Absent: distended, tenderness - Extremities Exam Extremities exam: Present: warm, radial pulses palpable and symmetrical. Absent : calf tenderness, cyanotic, pedal edema - Skin Skin exam: Present: dry, intact
--- NOTE | 2017-01-21 10:03 | Physician Discharge Referral ---
[facility] Referral Info Provider in Charge after Transfer: PCP Institutional Level of Care: Skilled - Diagnosis (1) Alzheimer's dementia Status: Acute (2) CKD (chronic kidney disease) stage 3, GFR 30-59 ml/min Status: Chronic (3) Altered mental status Status: Acute (4) Acute kidney injury superimposed on chronic kidney disease Status: Acute (5) Constipation Status: Acute - Transfer Medications Home Medications: Donepezil [Aricept] 10 mg PO HS 05/06/15 [History] Trospium Chloride 20 mg PO BID 02/29/16 [History] Mirtazapine [Remeron] 15 mg PO HS #30 tablet 03/03/16 [Rx] Atorvastatin Calcium [Lipitor] 80 mg PO HS 01/12/17 [History] Cranberry Fruit Extract [Cranberry] 500 mg PO DAILY 01/12/17 [History] Docusate [Colace] 100 mg PO DAILY 01/12/17 [History] Lacosamide [Vimpat] 50 mg PO BID 01/12/17 [History] Lactulose [Enulose] 10 gm PO DAILY 01/12/17 [History] Levothyroxine [Synthroid] 50 mcg PO 0630 01/12/17 [History] Polyethylene Glycol 3350 [MiraLAX] 17 gm PO DAILY 01/12/17 [History] Polyvinyl Alcohol [Artificial Tears] 2 drop OP Q4H PRN 01/12/17 [History] Tearless Baby Shampoo 1 appl TP AD 01/12/17 [History] Sennosides/Docusate Sodium [Senna Plus] 2 each PO DAILY tablet 01/21/17 [Rx] Allergies/Adverse Reactions: 3 Allergy/AdvReac Type Severity Reaction Status Date / Time Pneumococcal Vaccine Allergy Hives Verified 05/09/15 14:21 - Respiratory Orders Smoking Cessation: Smoking cessation has been advised. For more information, call the [place] Tobacco Quit Line at 0-685-DKTX-NOW. - Advance Directives Living Will: Yes Power of Project Portfolio Analyst: Yes Code Status: DNR-Arrest/Don't Intubate - Mobility Orders Chair - Rehabiliation Orders Rehab Potential: Fair Rehab Orders: Evaluation for Physical Therapy, Evaluation for Occupational Therapy - Treatments Skin tear care topically daily PRN per policy, May check for fecal impaction rectally daily PRN, Fleet enema rectally every other day PRN cleansing purposes - Diet Orders Mechanical Soft CERTIFICATION: I certify that the transfer of the above named patient to an Extended Care Facility is necessary for the continuing treatment of the diagnosis listed. The above information is true and accurate reflection of patient's current condition. Confidential - Redisclosure prohibited without a patient's written consent.
[2017-01-21 11:30] VITALS: BP 138/78
== END 2017-01-21 14:49 ==
LOC: EMEROO 16:54 → 3BNU 16:54 → SUATTDRO 20:12 → 3BNU 20:50
PROVIDERS: ADMIT Internal Medicine; ATTEND Internal Medicine